=== PATIENT | female | born 1975 | race Two or more races ===

== ENCOUNTER 2020-07-23 14:52 | Outpatient (REF) | payer OTHER, SELFPAY ==
[2020-07-23 16:49] LABS: MANUAL DIFF FLAG NO
[2020-07-23 16:54] LABS: Basophils Absolute Auto 0.1 X10*3/uL (0.0-0.2); Basophils Percent Auto 0.5 % (0-2); Eosinophils Absolute Auto 0.1 X10*3/uL (0.0-0.4); Eosinophils Percent Auto 0.5 % (0-4); Hematocrit 40.9 % (37-47); Hemoglobin 13.7 g/dl (12.0-16.0); Imm Gran Abs Auto 0.04 X10*3/uL (0.00-0.03); Imm Gran Pct Auto 0.4 % (0.0-0.4); Lymphocytes Absolute Auto 2.3 X10*3/uL (1.2-4.9); Lymphocytes Percent Auto 23.6 % (20-40); Mean Corpuscular HGB Conc 33.5 g/dl (31.0-35.0); Mean Corpuscular Hemoglobin 29.7 pg (27.0-33.0); Mean Corpuscular Volume 88.7 fL (80-98); Mean Platelet Volume 9.9 fL (9.4-12.3); Monocytes Absolute Auto 0.6 X10*3/uL (0.1-1.2); Monocytes Percent Auto 5.8 % (2-11); Neutrophils Absolute Auto 6.7 X10*3/uL (2.0-8.3); Neutrophils Percent Auto 69.2 % (45-73); Platelet Count 482 X10*3/uL (160-400); Red Blood Count 4.61 X10*6/uL (4.20-5.50); Red Cell Distribution Width 11.9 % (11.0-16.0); White Blood Count 9.7 X10*3/uL (4.8-10.8)
[2020-07-23 17:21] LABS: D Dimer < 200 NG/ML
[2020-07-23 17:35] LABS: Anion Gap 13 (12-20); Blood Urea Nitrogen 8 mg/dL (9-16); Calcium 8.9 mg/dL (8.4-10.2); Carbon Dioxide 27 mmol/L (22-29); Chloride 104 mmol/L (96-108); Estimated Glomerular Filt Rate > 60; Glucose Random 96 mg/dL (60-115); Sodium 140 mmol/L (135-145)
[2020-07-23 17:53] LABS: Erythrocyte Sedimentation Rate 28 MM/HR (0-20)
[2020-07-24 08:15] LABS: SARS COV2 IgG Negative (Negative)
[2020-07-24 21:23] LABS: Anti Nuclear Antibody Screen POSITIVE (NEGATIVE); Anti Nuclear Antibody Titer 1:40 titer
== END 2020-07-23 14:53 | disposition home or self-care (01) ==
LOC: HO.LAB 14:52
PROVIDERS: Visit Provider Hospitalist
DX: R07.9 Chest pain, unspecified (principal); R06.02 Shortness of breath; J45.909 Unspecified asthma, uncomplicated; Z20.828 Contact with and (suspected) exposure to other viral communicable diseases
CPT/HCPCS: 36415; 80048; 82785; 85025; 85379; 85652; 86003; 86038; 86039; 86769; 99202

== ENCOUNTER 2020-07-25 08:48 | Outpatient (REF) | payer OTHER, SELFPAY ==
--- NOTE | 2020-07-25 10:33 | XR_ITS ---
EXAMINATION: XR CHEST CLINICAL INFORMATION: Asthma COMPARISON: None TECHNIQUE: 2 views of the chest were obtained. FINDINGS: No significant abnormality is noted involving the heart, lungs, mediastinum, bony thorax or soft tissues. XR/XR chest 2V IMPRESSION: Unremarkable examination.
--- NOTE | 2020-07-25 16:08 | PFT_ITS ---
FLOWS: FEV1 of 85% of predicted at 2.67 L. FVC 81% of predicted at 3.08 L. FEV1 to FVC ratio of 0.87. No bronchodilator response. LUNG VOLUMES: Total lung capacity 79% of predicted at 4.26 L. Residual volume 59% of predicted at 1.04 L. Slow vital capacity 89% of predicted at 3.22 L. Expiratory reserve volume 86% of predicted at 1.07 L. Diffusion capacity is normal. IMPRESSION: No obstructive or restrictive ventilatory defect. No bronchodilator response. Essentially normal pulmonary function test. Good Chavez MD AP/MODL / [id number]
== END 2020-07-25 08:49 | disposition home or self-care (01) ==
LOC: HO.RESP 08:48
PROVIDERS: Visit Provider Hospitalist
DX: J45.909 Unspecified asthma, uncomplicated (principal); R06.02 Shortness of breath
CPT/HCPCS: 71046; 94060; 94727; 94729

== ENCOUNTER → 2020-08-13 14:51 | Outpatient (BNVA) | payer OTHER, SELFPAY | PROVIDERS: Visit Provider Hospitalist | DX: J45.909 Unspecified asthma, uncomplicated (principal); R06.00 Dyspnea, unspecified; R07.9 Chest pain, unspecified; R76.8 Other specified abnormal immunological findings in serum; J98.4 Other disorders of lung | CPT/HCPCS: 99212 ==

== ENCOUNTER 2020-09-04 11:52 | Outpatient (REF) | payer OTHER, SELFPAY ==
--- NOTE | 2020-09-04 12:15 | CT_ITS ---
EXAMINATION: CT CHEST WITHOUT CONTRAST CLINICAL INFORMATION: Abnormal immunological findings. COMPARISON: Chest x-ray 07/25/2020 TECHNIQUE: Multidetector volumetric CT imaging of the chest was done. Axial MIP volume rendering provided. Sagittal and coronal reformatted images were obtained. This CT examination was performed using dose optimization techniques as appropriate, variously including the following: *Automated exposure control *Adjustment of mA and/or kV according to patient size (this includes techniques or standardized protocols for targeted exams where dose is matched to indication/reason for exam; i.e. extremities or head) *Use of iterative reconstruction technique DLP: 155 mGy-cm FINDINGS: ROUTE SALES REPRESENTATIVE: Hypoexpanded lungs. LUNGS: The lungs are well-expanded and clear of acute pneumonic process. There is no pulmonary nodule, groundglass density or consolidation. No abnormal interstitial thickening seen either. MEDIASTINUM: The central trachea and bronchi are widely patent. The thyroid lobes are symmetrical and normal. The heart size and great vessels are normal caliber. No abnormal size mediastinal lymph nodes seen. There is no pericardial effusion. PLEURA: There is no pleural effusion. No pleural mass or thickening. AXILLA: No lymphadenopathy. UPPER ABDOMEN: Visualized liver, spleen, pancreas and bilateral adrenal glands are unremarkable. OSSEOUS STRUCTURES: There is mild ventral spondylosis at T2-T3 disc level. No fracture or lytic process seen. CT/CT chest wo con IMPRESSION: Essentially unremarkable CT chest exam.
[2020-09-05 11:17] LABS: Immunoglobulin E 59 kU/L (<OR=114)
[2020-09-05 12:02] LABS: Complement C3 72 mg/dL (83-193)
[2020-09-05 12:26] LABS: Anti DNA DS Antibody 2 IU/mL; Antibody to SS-A Antigen <1.0 NEG AI (<1.0 NEG); Antibody to SS-B Antigen <1.0 NEG AI (<1.0 NEG)
[2020-09-06 07:47] LABS: Cyclic Citrullinated Peptide <16 UNITS
== END 2020-09-04 11:53 | disposition home or self-care (01) ==
LOC: HO.CT 11:52
PROVIDERS: Visit Provider Hospitalist
DX: R07.9 Chest pain, unspecified (principal); R06.00 Dyspnea, unspecified; R76.8 Other specified abnormal immunological findings in serum; J45.909 Unspecified asthma, uncomplicated
CPT/HCPCS: 36415; 71250; 82785; 86160; 86200; 86225; 86235

== ENCOUNTER → 2020-09-10 09:09 | Outpatient (BNVA) | payer OTHER, SELFPAY | PROVIDERS: Visit Provider Hospitalist | DX: J98.4 Other disorders of lung (principal); R76.8 Other specified abnormal immunological findings in serum; R07.1 Chest pain on breathing; G47.33 Obstructive sleep apnea (adult) (pediatric); Z99.89 Dependence on other enabling machines and devices | CPT/HCPCS: 99212 ==

== ENCOUNTER 2020-10-25 11:35 | Outpatient (REF) | payer OTHER, SELFPAY | END 2020-10-25 11:36 | disposition home or self-care (01) | LOC: HO.LAB 11:35 | PROVIDERS: Visit Provider Internal Medicine | DX: Z20.822 Contact with and (suspected) exposure to COVID-19 (principal) | CPT/HCPCS: 36415; C9803; U0003; U0005 ==

== ENCOUNTER → 2020-10-31 14:33 | Outpatient (BNVA) | payer OTHER, SELFPAY | PROVIDERS: Visit Provider Hospitalist | DX: Z01.811 Encounter for preprocedural respiratory examination (principal); G47.33 Obstructive sleep apnea (adult) (pediatric); J98.4 Other disorders of lung; R76.8 Other specified abnormal immunological findings in serum; R06.00 Dyspnea, unspecified; J45.20 Mild intermittent asthma, uncomplicated; Z99.89 Dependence on other enabling machines and devices | CPT/HCPCS: 99212 ==

== ENCOUNTER 2020-12-13 09:17 | Outpatient (REF) | payer OTHER, SELFPAY ==
[2020-12-13 11:11] LABS: MANUAL DIFF FLAG NO
[2020-12-13 11:59] LABS: Basophils Absolute Auto 0.1 X10*3/uL (0.0-0.2); Basophils Percent Auto 0.5 % (0-2); Eosinophils Absolute Auto 0.1 X10*3/uL (0.0-0.4); Eosinophils Percent Auto 0.7 % (0-4); Hematocrit 36.6 % (37-47); Hemoglobin 12.2 g/dl (12.0-16.0); Imm Gran Abs Auto 0.06 X10*3/uL (0.00-0.03); Imm Gran Pct Auto 0.6 % (0.0-0.4); Lymphocytes Absolute Auto 3.5 X10*3/uL (1.2-4.9); Lymphocytes Percent Auto 36.5 % (20-40); Mean Corpuscular HGB Conc 33.3 g/dl (31.0-35.0); Mean Corpuscular Hemoglobin 29.3 pg (27.0-33.0); Mean Corpuscular Volume 87.8 fL (80-98); Mean Platelet Volume 10.1 fL (9.4-12.3); Monocytes Absolute Auto 0.6 X10*3/uL (0.1-1.2); Monocytes Percent Auto 6.1 % (2-11); Neutrophils Absolute Auto 5.3 X10*3/uL (2.0-8.3); Neutrophils Percent Auto 55.6 % (45-73); Platelet Count 435 X10*3/uL (160-400); Red Blood Count 4.17 X10*6/uL (4.20-5.50); Red Cell Distribution Width 12.8 % (11.0-16.0); White Blood Count 9.6 X10*3/uL (4.8-10.8)
[2020-12-13 12:13] LABS: Thyroid Stimulating Hormone 1.63 uIU/mL (0.32-4.0)
[2020-12-13 12:23] LABS: Alanine Aminotransferase 13 U/L (0-31); Alkaline Phosphatase 113 U/L (39-117); Anion Gap 13 (12-20); Aspartate Amino Transferase 12 U/L (5-31); Bilirubin Total 0.9 mg/dL (0.0-1.0); Blood Urea Nitrogen 10 mg/dL (9-16); C Reactive Protein 0.43 mg/dL (< or = 0.50); Calcium 8.9 mg/dL (8.4-10.2); Carbon Dioxide 23 mmol/L (22-29); Chloride 108 mmol/L (96-108); Estimated Glomerular Filt Rate > 60; Glucose Random 121 mg/dL (60-115); Rheumatoid Factor < 15.0 IU/mL (<15.0); Sodium 140 mmol/L (135-145); Total Protein 7.1 g/dL (6.5-8.0)
[2020-12-13 12:40] LABS: Erythrocyte Sedimentation Rate 25 MM/HR (0-20)
[2020-12-14 09:37] LABS: Thyroglobulin Antibodies <1 IU/mL (< or = 1); Thyroid Peroxidase Antibodies 1 IU/mL (<9)
[2020-12-14 12:22] LABS: Anti DNA DS Antibody 1 IU/mL; Scleroderma 70 Antibody <1.0 NEG AI (<1.0 NEG); Smith Protein <1.0 NEG AI (<1.0 NEG)
[2020-12-14 14:01] LABS: Anti Nuclear Antibody Screen NEGATIVE (NEGATIVE)
[2020-12-16 10:26] LABS: Complement C3 142 mg/dL (83-193)
[2020-12-17 12:33] LABS: Cyclic Citrullinated Peptide <16 UNITS
== END 2020-12-13 09:18 | disposition home or self-care (01) ==
LOC: HO.LAB 09:17
PROVIDERS: Hospitalist; PCP Nurse Practitioner Family; Visit Provider Student in an Organized Health Care Education/Training Program
DX: R07.1 Chest pain on breathing (principal); R06.00 Dyspnea, unspecified; R76.8 Other specified abnormal immunological findings in serum
CPT/HCPCS: 36415; 80053; 84443; 85025; 85652; 86038; 86039; 86140; 86160; 86200; 86225; 86235; 86376; 86431; 86800; 99202

== ENCOUNTER 2020-12-14 10:57 | Outpatient (REF) | payer OTHER, SELFPAY ==
[2020-12-14 11:14] LABS: Glucose Urine UA NEG (NEG); Leukocyte Esterase Urine NEG (NEG); Nitrite Urine NEG (NEG); Urine Blood NEG (NEG); Urine Ketones NEG (NEG); Urine Protein NEG (NEG-TRACE)
[2020-12-14 11:15] LABS: Appearance Urine CLEAR; Color Urine YELLOW
[2020-12-14 11:28] LABS: RBC Urine 0 /HPF (0); Squamous Epithelial Cell Urine 1+ /LPF; WBC Urine 0 /HPF (0-4)
== END 2020-12-14 10:58 | disposition home or self-care (01) ==
LOC: HO.LNP 10:57
PROVIDERS: Visit Provider Student in an Organized Health Care Education/Training Program
DX: R76.8 Other specified abnormal immunological findings in serum (principal)
CPT/HCPCS: 81001

== ENCOUNTER → 2020-12-27 10:03 | Outpatient (BNVA) | payer OTHER, SELFPAY | PROVIDERS: Visit Provider Student in an Organized Health Care Education/Training Program | DX: R76.8 Other specified abnormal immunological findings in serum (principal) | CPT/HCPCS: 99212 ==

== ENCOUNTER → 2021-01-16 08:53 | Outpatient (BNVA) | payer OTHER, SELFPAY | PROVIDERS: PCP Physician Assistant Medical; Visit Provider Hospitalist | DX: G47.33 Obstructive sleep apnea (adult) (pediatric) (principal); J98.4 Other disorders of lung; J45.20 Mild intermittent asthma, uncomplicated; Z99.89 Dependence on other enabling machines and devices | CPT/HCPCS: 99212 ==

== ENCOUNTER → 2021-05-09 09:08 | Outpatient (BNVA) | payer OTHER, SELFPAY | PROVIDERS: PCP Physician Assistant Medical; Visit Provider Hospitalist | DX: J98.4 Other disorders of lung (principal); J45.20 Mild intermittent asthma, uncomplicated; G47.33 Obstructive sleep apnea (adult) (pediatric); R07.1 Chest pain on breathing; Z99.89 Dependence on other enabling machines and devices | CPT/HCPCS: 99212 ==

== ENCOUNTER → 2021-07-08 14:06 | Outpatient (BNVA) | payer OTHER, SELFPAY | PROVIDERS: PCP Physician Assistant Medical; Visit Provider Hospitalist | DX: J98.4 Other disorders of lung (principal); J45.20 Mild intermittent asthma, uncomplicated; R07.1 Chest pain on breathing; G47.33 Obstructive sleep apnea (adult) (pediatric); Z99.89 Dependence on other enabling machines and devices | CPT/HCPCS: 99212 ==

== ENCOUNTER → 2021-08-25 13:00 | Outpatient (BNVA) | payer OTHER, SELFPAY | PROVIDERS: PCP Physician Assistant Medical; Visit Provider Hospitalist | DX: U07.1 COVID-19 (principal); J98.4 Other disorders of lung; J45.20 Mild intermittent asthma, uncomplicated; R07.1 Chest pain on breathing; G47.33 Obstructive sleep apnea (adult) (pediatric); Z79.899 Other long term (current) drug therapy; Z99.89 Dependence on other enabling machines and devices | CPT/HCPCS: Q3014 ==

== ENCOUNTER → 2021-09-26 13:40 | Outpatient (BNVA) | payer OTHER, SELFPAY | PROVIDERS: PCP Physician Assistant Medical; Visit Provider Psychiatry & Neurology Neurology | DX: G43.709 Chronic migraine without aura, not intractable, without status migrainosus (principal) | CPT/HCPCS: 64615; 99211; J0585 ==

== ENCOUNTER → 2021-10-06 12:31 | Outpatient (BNVA) | payer OTHER, SELFPAY | PROVIDERS: PCP Physician Assistant Medical; Visit Provider Hospitalist | DX: U07.1 COVID-19 (principal); R07.9 Chest pain, unspecified; J45.20 Mild intermittent asthma, uncomplicated; J98.4 Other disorders of lung; G47.33 Obstructive sleep apnea (adult) (pediatric); Z99.89 Dependence on other enabling machines and devices | CPT/HCPCS: 99212 ==

== ENCOUNTER → 2021-12-22 12:45 | Outpatient (BNVA) | payer OTHER, SELFPAY | PROVIDERS: PCP Physician Assistant Medical; Visit Provider Psychiatry & Neurology Neurology | DX: G43.709 Chronic migraine without aura, not intractable, without status migrainosus (principal) | CPT/HCPCS: 64615; 99211; J0585 ==

== ENCOUNTER → 2022-01-12 13:46 | Outpatient (BNVA) | payer OTHER, SELFPAY | PROVIDERS: PCP Physician Assistant Medical; Visit Provider Nurse Practitioner Family | DX: G43.709 Chronic migraine without aura, not intractable, without status migrainosus (principal); G25.81 Restless legs syndrome; G47.33 Obstructive sleep apnea (adult) (pediatric); Z79.899 Other long term (current) drug therapy; Z99.89 Dependence on other enabling machines and devices | CPT/HCPCS: 99212 ==

== ENCOUNTER → 2022-02-12 12:31 | Outpatient (BNVA) | payer OTHER, SELFPAY | PROVIDERS: PCP Physician Assistant Medical; Visit Provider Hospitalist | DX: G47.33 Obstructive sleep apnea (adult) (pediatric) (principal); J98.4 Other disorders of lung; R07.1 Chest pain on breathing; J45.20 Mild intermittent asthma, uncomplicated; Z79.899 Other long term (current) drug therapy; Z99.89 Dependence on other enabling machines and devices | CPT/HCPCS: 99212 ==

== ENCOUNTER 2022-03-23 15:58 | Outpatient (REF) | payer OTHER, SELFPAY ==
[2022-03-23 16:25] LABS: MANUAL DIFF FLAG NO
[2022-03-23 17:14] LABS: Basophils Absolute Auto 0.1 X10*3/uL (0.0-0.2); Basophils Percent Auto 0.7 % (0-2); Eosinophils Absolute Auto 0.1 X10*3/uL (0.0-0.4); Eosinophils Percent Auto 0.6 % (0-4); Hematocrit 42.3 % (37.0-47.0); Hemoglobin 14.1 g/dl (12.0-16.0); Imm Gran Abs Auto 0.03 X10*3/uL (0.00-0.03); Imm Gran Pct Auto 0.3 % (0.0-0.4); Lymphocytes Absolute Auto 2.9 X10*3/uL (1.2-4.9); Lymphocytes Percent Auto 29.4 % (20-40); Mean Corpuscular HGB Conc 33.3 g/dl (31.0-35.0); Mean Corpuscular Hemoglobin 29.2 pg (27.0-33.0); Mean Corpuscular Volume 87.6 fL (80.0-98.0); Mean Platelet Volume 10.1 fL (9.4-12.3); Monocytes Absolute Auto 0.6 X10*3/uL (0.1-1.2); Monocytes Percent Auto 5.6 % (2-11); Neutrophils Absolute Auto 6.2 x10*3/uL (2.0-8.3); Neutrophils Percent Auto 63.4 % (45-73); Platelet Count 468 X10*3/uL (160-400); Red Blood Count 4.83 X10*6/uL (4.20-5.50); Red Cell Distribution Width 12.3 % (11.0-16.0); White Blood Count 9.8 X10*3/uL (4.8-10.8)
[2022-03-23 17:56] LABS: Alanine Aminotransferase 23 U/L (0-31); Albumin Level 4.8 g/dL (3.5-5.0); Alkaline Phosphatase 161 U/L (39-117); Anion Gap 15 (12-20); Aspartate Amino Transferase 24 U/L (5-31); Bilirubin Total 0.3 mg/dL (0.0-1.0); Blood Urea Nitrogen 10 mg/dL (9-16); C Reactive Protein 0.78 mg/dL (< or = 0.50); Calcium 9.3 mg/dL (8.4-10.2); Carbon Dioxide 25 mmol/L (22-29); Chloride 105 mmol/L (96-108); Estimated Glomerular Filt Rate > 60; Glucose Random 103 mg/dL (60-115); Sodium 141 mmol/L (135-145); Total Protein 8.3 g/dL (6.5-8.0)
[2022-03-23 18:06] LABS: Erythrocyte Sedimentation Rate 26 MM/HR (0-20)
[2022-03-24 04:05] LABS: HBS Num1 0.57 mIU/mL (0-7.99); HBc Num1 0.16 S/CO (0.00-0.79); HBsAGNum1 0.23 S/CO (0.00-0.99); Hepatitis B Core Antibody Nonreactive (Nonreactive); Hepatitis B Surface Antigen Negative (Negative); ~HepC Num1 0.37 S/CO (0.00-0.79); ~Hepatitis B Surface Antibody NONREACTIVE (Nonreactive); ~Hepatitis C Antibody Nonreactive (Nonreactive)
[2022-03-25 05:00] LABS: Hepatitis A Antibody IgM 0.13 Index (0-0.79); ~Hepatitis A Antibody IgM Nonreactive (Nonreactive)
[2022-03-25 09:17] LABS: Iron 64 mcg/dL (30-160); Percent Iron Saturation 17 % (15-50); Total Iron Binding Capacity 377 mcg/dL (228-428); Unsaturated Iron Binding 313 ug/dL
[2022-03-25 16:47] LABS: Complement C3 174 mg/dL (83-193)
[2022-03-26 06:12] LABS: DRVVT 1:1 Mix Interpretation Not Indicated; PTT (LAC) Screen 36 sec (<=40)
[2022-03-26 10:42] LABS: Anti Nuclear Antibody Screen NEGATIVE (NEGATIVE)
[2022-03-26 14:27] LABS: Anti DNA DS Antibody 1 IU/mL; Antibody to SS-A Antigen <1.0 NEG AI (<1.0 NEG); Antibody to SS-B Antigen <1.0 NEG AI (<1.0 NEG); SM/Ribonucleoprotein Ab 6.9 POS AI (<1.0 NEG); Scleroderma 70 Antibody <1.0 NEG AI (<1.0 NEG); Smith Protein <1.0 NEG AI (<1.0 NEG)
[2022-03-26 20:13] LABS: Myeloperoxidase Antibody <1.0 AI; Proteinase 3 PR3 Antibodies <1.0 AI
[2022-03-27 15:06] LABS: IgA 263 mg/dL (47-310); IgG 1515 mg/dL (600-1640); IgM 185 mg/dL (50-300)
[2022-03-27 21:32] LABS: Prot Elec - Albumin 4.9 g/dL (3.8-4.8); Prot Elec - Alpha1 0.3 g/dL (0.2-0.3); Prot Elec - Alpha2 0.8 g/dL (0.5-0.9); Prot Elec - Beta 1 0.6 g/dL (0.4-0.6); Prot Elec - Beta 2 0.4 g/dL (0.2-0.5); Prot Elec - Gamma 1.4 g/dL (0.8-1.7); Prot Elec - Total Protein 8.4 g/dL (6.1-8.1)
[2022-03-31 21:12] LABS: Transferrin 301 mg/dL (188-341)
== END 2022-03-23 15:59 | disposition home or self-care (01) ==
LOC: HO.LAB 15:58
PROVIDERS: Hospitalist; Visit Provider Student in an Organized Health Care Education/Training Program
DX: M25.50 Pain in unspecified joint (principal); R21 Rash and other nonspecific skin eruption; R76.8 Other specified abnormal immunological findings in serum; J98.4 Other disorders of lung; R07.1 Chest pain on breathing; D75.839 Thrombocytosis, unspecified; D89.2 Hypergammaglobulinemia, unspecified; Z79.899 Other long term (current) drug therapy
CPT/HCPCS: 36415; 80053; 82784; 83540; 84165; 84466; 85025; 85597; 85613; 85652; 85730; 86021; 86038; 86039; 86140; 86160; 86225; 86235; 86334; 86704; 86706; 86709; 86803; 87340; 99202; 99212

== ENCOUNTER 2022-03-26 16:03 | Outpatient (REF) | payer OTHER, SELFPAY ==
[2022-03-26 16:20] LABS: Appearance Urine Cloudy; Color Urine Dark Yellow; Glucose Urine UA Negative (Negative); Leukocyte Esterase Urine Small (1+) (Negative); Nitrite Urine Negative (Negative); PH 5.5 (5.0-8.0); Specific Gravity - Urine 1.025 (1.005-1.025); Urine Blood Negative (Negative); Urine Ketones Trace mg/dL (Negative); Urine Protein Negative (Neg-Trace)
[2022-03-26 16:30] LABS: Bacteria Urine 2+ (None Seen); Hyaline Casts Urine 0-2 /LPF (0-2); RBC Urine 0-2 /HPF (0-2); Squamous Epithelial Cell Urine >20 /HPF (0-2); WBC Urine 0-5 /HPF (0-5)
[2022-03-26 16:31] LABS: UACC Culture Trigger NO
[2022-03-26 16:33] LABS: Creatinine Urine 188.33 mg/dL; Protein/Creatinine Ratio, Ur 0.06 (<0.2); Total Protein Urine Random 12 mg/dL (<12)
== END 2022-03-26 16:04 | disposition home or self-care (01) ==
LOC: HO.LNP 16:03
PROVIDERS: Visit Provider Student in an Organized Health Care Education/Training Program
DX: R21 Rash and other nonspecific skin eruption (principal); R76.8 Other specified abnormal immunological findings in serum; M25.50 Pain in unspecified joint
CPT/HCPCS: 81001; 84156

== ENCOUNTER → 2022-04-21 14:29 | Outpatient (BNVA) | payer OTHER, SELFPAY | PROVIDERS: Visit Provider Student in an Organized Health Care Education/Training Program | DX: R76.8 Other specified abnormal immunological findings in serum (principal); M35.9 Systemic involvement of connective tissue, unspecified; M79.7 Fibromyalgia; Z79.899 Other long term (current) drug therapy | CPT/HCPCS: 99212 ==

== ENCOUNTER → 2022-05-08 14:26 | Outpatient (BNVA) | payer OTHER, SELFPAY | PROVIDERS: Visit Provider Nurse Practitioner Family | DX: M54.50 Low back pain, unspecified (principal); M79.605 Pain in left leg; R20.1 Hypoesthesia of skin; G43.709 Chronic migraine without aura, not intractable, without status migrainosus; Z79.899 Other long term (current) drug therapy | CPT/HCPCS: 99212 ==

== ENCOUNTER → 2022-05-22 14:55 | Outpatient (BNVA) | payer OTHER, SELFPAY | PROVIDERS: PCP Physician Assistant Medical; Visit Provider Hospitalist | DX: J45.20 Mild intermittent asthma, uncomplicated (principal); J98.4 Other disorders of lung; R07.1 Chest pain on breathing; G47.33 Obstructive sleep apnea (adult) (pediatric); Z99.89 Dependence on other enabling machines and devices | CPT/HCPCS: 99212 ==

== ENCOUNTER → 2022-06-18 08:04 | Outpatient (BNVA) | payer OTHER, SELFPAY | PROVIDERS: PCP Physician Assistant Medical; Visit Provider Psychiatry & Neurology Neurology | DX: G43.119 Migraine with aura, intractable, without status migrainosus (principal); G43.709 Chronic migraine without aura, not intractable, without status migrainosus | CPT/HCPCS: 64615; 99211; J0585 ==

== ENCOUNTER 2022-07-20 13:26 | Outpatient (REF) | payer OTHER, SELFPAY ==
[2022-07-20 13:45] LABS: MANUAL DIFF FLAG NO
[2022-07-20 14:19] LABS: Basophils Absolute Auto 0.1 X10*3/uL (0.0-0.2); Basophils Percent Auto 0.6 % (0-2); Eosinophils Absolute Auto 0.2 X10*3/uL (0.0-0.4); Eosinophils Percent Auto 1.8 % (0-4); Hemoglobin 12.5 g/dl (12.0-16.0); Imm Gran Abs Auto 0.06 X10*3/uL (0.00-0.03); Imm Gran Pct Auto 0.7 % (0.0-0.4); Lymphocytes Absolute Auto 2.5 X10*3/uL (1.2-4.9); Lymphocytes Percent Auto 27.3 % (20-40); Mean Corpuscular HGB Conc 32.9 g/dl (31.0-35.0); Mean Corpuscular Hemoglobin 28.9 pg (27.0-33.0); Mean Corpuscular Volume 87.8 fL (80.0-98.0); Mean Platelet Volume 10.3 fL (9.4-12.3); Monocytes Absolute Auto 0.6 X10*3/uL (0.1-1.2); Monocytes Percent Auto 6.7 % (2-11); Neutrophils Absolute Auto 5.7 x10*3/uL (2.0-8.3); Neutrophils Percent Auto 62.9 % (45-73); Platelet Count 418 X10*3/uL (160-400); Red Blood Count 4.33 X10*6/uL (4.20-5.50); Red Cell Distribution Width 12.3 % (11.0-16.0)
[2022-07-20 15:13] LABS: Alanine Aminotransferase 10 U/L (0-31); Albumin Level 4.2 g/dL (3.5-5.0); Alkaline Phosphatase 113 U/L (39-117); Anion Gap 12 (12-20); Aspartate Amino Transferase 13 U/L (5-31); Bilirubin Total 0.5 mg/dL (0.0-1.0); Blood Urea Nitrogen 11 mg/dL (9-16); C Reactive Protein 0.69 mg/dL (< or = 0.50); Calcium 8.9 mg/dL (8.4-10.2); Carbon Dioxide 24 mmol/L (22-29); Chloride 106 mmol/L (96-108); Estimated Glomerular Filt Rate > 60; Ferritin 78 ng/mL (10-250); Glucose Random 114 mg/dL (60-115); Sodium 138 mmol/L (135-145)
[2022-07-21 14:48] LABS: Complement C3 146 mg/dL (83-193)
[2022-07-22 16:38] LABS: Anti-Centromere B Antibodies <1.0 NEG AI (<1.0 NEG)
[2022-07-24 10:04] LABS: Anti DNA DS Antibody 1 IU/mL; Myeloperoxidase Antibody <1.0 AI; Proteinase 3 PR3 Antibodies <1.0 AI
== END 2022-07-20 13:27 | disposition home or self-care (01) ==
LOC: HO.LAB 13:26
PROVIDERS: Visit Provider Student in an Organized Health Care Education/Training Program
DX: R76.8 Other specified abnormal immunological findings in serum (principal); D75.839 Thrombocytosis, unspecified; M25.50 Pain in unspecified joint; R21 Rash and other nonspecific skin eruption; D89.2 Hypergammaglobulinemia, unspecified
CPT/HCPCS: 36415; 80053; 82728; 85025; 86021; 86140; 86160; 86225; 86235

== ENCOUNTER 2022-07-22 09:16 | Outpatient (REF) | payer OTHER, SELFPAY ==
[2022-07-22 09:30] LABS: Appearance Urine Clear; Color Urine Yellow; Glucose Urine UA Negative (Negative); Leukocyte Esterase Urine Trace (Negative); Nitrite Urine Negative (Negative); PH 5.5 (5.0-9.0); Specific Gravity - Urine 1.015 (1.005-1.025); UMIC TRIGGER UA YES; Urine Blood Negative (Negative); Urine Ketones Negative (Negative); Urine Protein Negative (Neg-Trace)
[2022-07-22 09:35] LABS: Bacteria Urine Trace (None Seen); Hyaline Casts Urine 0-2 /LPF (0-2); RBC Urine 0-2 /HPF (0-2); WBC Urine 0-5 /HPF (0-5)
[2022-07-22 09:54] LABS: Creatinine Urine 135.84 mg/dL; Total Protein Urine Random < 7 mg/dL (<12)
== END 2022-07-22 09:17 | disposition home or self-care (01) ==
LOC: HO.LNP 09:16
PROVIDERS: Visit Provider Student in an Organized Health Care Education/Training Program
DX: R76.8 Other specified abnormal immunological findings in serum (principal); M35.9 Systemic involvement of connective tissue, unspecified; M79.7 Fibromyalgia; Z79.899 Other long term (current) drug therapy
CPT/HCPCS: 81001; 84156; 99212

== ENCOUNTER → 2022-09-21 07:55 | Outpatient (BNVA) | payer OTHER, SELFPAY | PROVIDERS: PCP Physician Assistant Medical; Visit Provider Psychiatry & Neurology Neurology | DX: G43.709 Chronic migraine without aura, not intractable, without status migrainosus (principal) | CPT/HCPCS: 64615; 99211; J0585 ==

== ENCOUNTER → 2022-09-29 14:40 | Outpatient (BNVA) | payer OTHER, SELFPAY | PROVIDERS: PCP Physician Assistant Medical; Visit Provider Nurse Practitioner Family | DX: G43.119 Migraine with aura, intractable, without status migrainosus (principal); G43.709 Chronic migraine without aura, not intractable, without status migrainosus; G25.81 Restless legs syndrome; G47.33 Obstructive sleep apnea (adult) (pediatric); Z99.89 Dependence on other enabling machines and devices | CPT/HCPCS: 99212 ==

== ENCOUNTER → 2022-11-20 13:13 | Outpatient (BNVA) | payer OTHER, SELFPAY | PROVIDERS: PCP Physician Assistant Medical; Visit Provider Hospitalist | DX: J98.4 Other disorders of lung (principal); J45.20 Mild intermittent asthma, uncomplicated; R07.1 Chest pain on breathing; G47.33 Obstructive sleep apnea (adult) (pediatric); Z99.89 Dependence on other enabling machines and devices | CPT/HCPCS: 99212 ==

== ENCOUNTER → 2022-12-22 15:53 | Outpatient (BNVA) | payer OTHER, SELFPAY | PROVIDERS: PCP Physician Assistant Medical; Visit Provider Psychiatry & Neurology Neurology | DX: G43.709 Chronic migraine without aura, not intractable, without status migrainosus (principal); G43.119 Migraine with aura, intractable, without status migrainosus | CPT/HCPCS: 64615; 99211; J0585 ==

== ENCOUNTER → 2023-01-25 14:15 | Outpatient (BNVA) | payer OTHER, SELFPAY | PROVIDERS: PCP Physician Assistant Medical; Visit Provider Nurse Practitioner Family | DX: G43.709 Chronic migraine without aura, not intractable, without status migrainosus (principal); M62.838 Other muscle spasm; R51.9 Headache, unspecified | CPT/HCPCS: 99212 ==

== ENCOUNTER 2023-03-12 12:35 | Outpatient (AMB) | payer OTHER, SELFPAY ==
[2023-03-12 12:57] VITALS: BP 118/70; PULSE 78; O2SAT 100; BMI 27.6
--- NOTE | 2023-03-12 12:57 | MHC.OFFVIS ---
Intake Vital Signs 03/12/23 12:57 Height 5 ft 6 in Weight 171 lb 1.259 oz BMI 27.6 BP 118/70 Blood Pressure Location Lt brachial Position Sitting Pulse 78 Pulse Source Pulse Oximeter Pulse Oximetry (%) 100 Oxygen Delivery Method Room Air Intake Visit Reasons: asthma Inspector Returned Materials Required: No Allergies gabapentin Allergy (Severe, Verified 03/12/23 12:59) Nausea and Vomiting shrimp Allergy (Severe, Verified 03/12/23 12:59) Nausea and Vomiting HPI HPI Comments History of Present Illness Details The patient is a 47-year-old woman with a known history of obstructive sleep apnea who apparently was in the usual state health until September of 2019. During that time she became briefly ill with respiratory illness. The patient is very symptomatic with significant coughing shortness of breath and also was noted to be wheezing at that time. Since then the patient has had ongoing symptoms which vary from shortness breath and cough. Her cough tends to be nonproductive in nature. At times he had been croupy. Due to the significant coughing she has not been able to tolerate her CPAP therapy. Prior to this illness she was using her CPAP without any difficulties. Subsequently after that she was tested for COVID and her swab was negative. Although she is pretty sure that she had COVID when she was significantly ill back in September. Now she complains of chest discomfort the sometimes radiates to her back along with shortness of breath and she has been noted to be significantly tachycardic. She had been evaluated at [facility] in her blood work has been relatively unremarkable. She had a chest x-ray back in February which was read as no acute disease and also personally reviewed and agreed. 05/11/2021 the patient is here for a pulmonary follow-up visit. Overall she is doing about the same. Still complaining of the pleuritic chest discomfort. She was responding well to the Plaquenil. But, had to stop it due to visual changes. Initially her LAVONNE has been positive. She did have a follow-up with Rheumatology but her workup was negative. She was diagnosed with fibromyalgia. Now, she developed a skin rash. She did follow-up with Dermatology. I do encourage her to get a biopsy of the rash. In the meantime we will assess her for other connective tissue or inflammatory conditions that she has not been checked for as of yet such as sarcoid and vasculitis. 02/25/2022 the patient is here for a pulmonary follow-up visit. She still complaining the pleuritic chest discomfort. She did have relief from the Plaquenil. However, she started developing visual changes and had to be stopped. She was taking it twice a day of the time. Now, She no longer has any visual changes. Her pleuritic discomfort is moderate severity. Makes it hard for her to be able to breathe. We did review her CT scan of the chest that she had previously without any evidence of any pleural thickening or pleural effusions. Although she may indeed have the beginnings of a connective tissue disease resulting in some pleuritis. The patient is agreeable to trying some ibuprofen and also a lower dose Plaquenil with the hope that she can not tolerated without any visual changes. If she does develop the visual changes use stop it immediately. She continues use her CPAP. The CPAP therapy continues to be affecting beneficial. She does use it for more than 4 hours a night. She also continues with respiratory medicine. She has not required any prednisone would like to hold off on prednisone due to her diabetes. The patient may be a good candidate for Daliresp specially if she develops any worsening bronchitis. 05/22/2022 the patient is here for a pulmonary follow-up visit. She continues to have off and on substernal pleuritic chest pains. He has been follow-up with the by Rheumatology. 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 She will continue to monitor closely. Wound time he was kept on the Plaquenil. Patient also has been using her CPAP. The CPAP therapy continues to be affecting beneficial. He does use it for more than 4 hours a night. Unfortunate current mask makes it to uncomfortable for her weakness is too tight around her nose. I did have a large F20 mask that is a little bit her but does work. She can try this to see if this is a better fit for her. If this does work for her better than she considering medium F20 mask. I will submit this to her [employer] at this time. She continues with respiratory therapy with good effect. Denies any for prednisone or rescue therapy at this time. 11/20/2022 the patient is here for pulmonary follow-up visit. The patient overall feels better. The substernal discomfort is improved. The inhaler tends to help with that. Although she still complaining of back pain. In the back issue otherwise in the thoracic area slightly not related to the underlying pulmonary issue. She also continues on the Plaquenil. She did go to her eye doctor and they did mention something abnormal although her vision is okay. I did encourage to continue the Plaquenil but to consider dropping it to just 1 daily and then follow up with her cosmetician apprentice with a copy of the note from the eye doctor in order for them to be able to make a better plan altogether. 03/12/2023 the patient is here for a pulmonary follow-up visit. She continues to have pleuritic chest pain. Hnma-mb-vjkmyscw severity. However, she is concerned about the Plaquenil. She does have some visual changes. We had decreased her Plaquenil from twice a day to once a day to minimize symptoms. However, she continues to have them. Therefore she is going to stop it altogether. We did review her chest imaging studies. She did have seen changes to her thoracic spine. Therefore request additional chest x-rays to make sure that the pain is not coming from there. Otherwise she continues on her respiratory medications with good effect. Initial prednisone at this time. The patient will follow up with Rheumatology in the coming months. No issues with her CPAP at this time. [facility] Medical History LAVONNE positive Bronchitis, asthmatic Carpal tunnel syndrome on both sides Cataract Chest pain Chronic migraine without aura Chronic restrictive lung disease COVID-19 Dyspnea Hypergammaglobulinemia Long-term use of Plaquenil JEWEL on CPAP Pre-op chest exam Thrombocytosis Surgical History H/O elbow surgery H/O: hysterectomy History of carpal tunnel release of both wrists Hx of cataract extraction Hx of section Hx of cholecystectomy Hx of tubal ligation Family History Mother Diabetes HTN (hypertension) CVD (cardiovascular disease) Ovarian cancer Father HTN (hypertension) CVD (cardiovascular disease) Maternal Grandfather Stomach cancer Maternal Uncle Lung cancer Mother Rheumatoid arthritis Social History Household Members: Children Alcohol intake: never Patient Tobacco Use Status: Never used Tobacco Current occupational status: disabled Female Reproductive History Menstrual Age of Menarche: 13 Review of Systems Const Denies headache(s) and Denies night sweats Eyes Reports change in vision ENT Denies change in voice, Denies headache(s), Denies lip swelling, Denies mouth pain, Reports nasal congestion, Reports nasal discharge, Reports neck pain and Denies tongue swelling Card Reports chest pain and Denies dyspnea Resp Denies change in phlegm color, Denies chest congestion, Reports cough, Denies hemoptysis and Denies dyspnea GI Reports dyspepsia and Reports heartburn Musc Reports back pain, Reports myalgias, Reports arthralgias and Reports neck pain Neuro Denies Neuro-related abnormal movements and Denies headache(s) Psych Denies no additional complaints Arthur/Lymph Denies easy bleeding and Denies lymphadenopathy Aller/Immun Denies lip swelling and Denies tongue swelling Physical Exam Vital Signs: Last Vital Signs Pulse 78 03/12/23 12:57 BP 118/70 03/12/23 12:57 Pulse Ox 100 03/12/23 12:57 Oxygen Delivery Method Room Air 03/12/23 12:57 BMI result Body Mass Index 27.6 Const General: cooperative and no acute distress Nutritional Appearance: well nourished Orientation/consciousness: patient oriented x3 HEENT Head: Yes normocephalic Neck Neck: Yes normal visual inspection, Yes full ROM and Yes no lymphadenopathy Chest Chest palpation & inspection: normal inspection of the chest Resp Effort & Inspection: normal respiratory effort and able to speak in complete sentences Auscultation: diminished lung sounds Cardio Rate: regular rate Rhythm: regular rhythm Heart sounds: S1 normal heart sound present and S2 normal heart sound present GI Palpation (GI): Soft to palpation Auscultation: normal bowel sounds Skin General skin exam: no rashes or lesions noted Neuro Other: Mild posterior cervical tightness. General: patient oriented x3, gait normal and CN's II-XI intact bilaterally Cognition (Neuro): normal cognition Motor exam (neuro): 5/5 motor strength present throughout Psych Appearance: grossly normal Mental Status: mental status grossly normal Speech and movement: Normal speech and movement present Affect: normal affect Attitude: cooperative Thought process: Normal thought process present Thought content: Normal thought content present Insight: Good insight present (Psych) Judgement: Good judgement present (Psych) Assessment & Plan Assessment & Plan (1) Chronic restrictive lung disease: Code(s): J98.4 - Other disorders of lung (2) Chest pain: Code(s): R07.9 - Chest pain, unspecified Qualifiers: Chest pain type: chest pain on breathing Qualified Code(s): R07.1 - Chest pain on breathing (3) JEWEL on CPAP: Code(s): G47.33 - Obstructive sleep apnea (adult) (pediatric); Z99.89 - Dependence on other enabling machines and devices (4) Bronchitis, asthmatic: Code(s): J45.909 - Unspecified asthma, uncomplicated Qualifiers: Asthma complication type: uncomplicated Asthma persistence: intermittent Asthma severity: mild Qualified Code(s): J45.20 - Mild intermittent asthma, uncomplicated (5) Low back pain radiating to left lower extremity: Code(s): M54.50 - Low back pain, unspecified; M79.605 - Pain in left leg Plan continue Trelegy Continue short-acting beta agonists continue CPAP therapy, trial F20 medium mask stop plaquenil daily due to visual changes follow-up in 6 months Orders: Orders XR lumbar spine 2-3V 03/12/23 M54.50 - Low back pain, unspecified, M79.605 - Pain in left leg XR thoracic spine 2V 03/12/23 M54.50 - Low back pain, unspecified, M79.605 - Pain in left leg Medications: Refilled albuterol sulfate 90 mcg/actuation 2 puffs inhalation Q4H 90 days PRN 3 ea 3RF shortness of breath or wheezing Discontinued fluticasone propionate 110 mcg/actuation (Flovent HFA) Discontinued Reason: Doctor's Order 2 puffs inhalation BID 30 days 12 grams 11RF montelukast Discontinued Reason: Doctor's Order 10 mg PO DAILY 90 tabs 3RF Coding Level of Care Code Est Pt Level 4 (50228) Diagnoses Chronic restrictive lung disease J98.4 Chest pain R07.1 Chest pain type: chest pain on breathing JEWEL on CPAP G47.33; Z99.89 Bronchitis, asthmatic J45.20 Asthma complication type: uncomplicated Asthma persistence: intermittent Asthma severity: mild Low back pain radiating to left lower extremity M54.50; M79.605 Time Spent (min) 19
== END 2023-03-12 13:27 | disposition home or self-care (01) ==
PROVIDERS: PCP Internal Medicine; Visit Provider Hospitalist
DX: J98.4 Other disorders of lung (principal); R07.1 Chest pain on breathing; G47.33 Obstructive sleep apnea (adult) (pediatric); Z99.89 Dependence on other enabling machines and devices; J45.20 Mild intermittent asthma, uncomplicated; M54.50 Low back pain, unspecified; M79.605 Pain in left leg
CPT/HCPCS: 99214

== ENCOUNTER → 2023-03-12 12:35 | Outpatient (BNVA) | payer OTHER, SELFPAY | PROVIDERS: Visit Provider Hospitalist | DX: J98.4 Other disorders of lung (principal); R07.1 Chest pain on breathing; G47.33 Obstructive sleep apnea (adult) (pediatric); J45.20 Mild intermittent asthma, uncomplicated; Z99.89 Dependence on other enabling machines and devices | CPT/HCPCS: 99212 ==

== ENCOUNTER 2023-04-02 09:06 | Outpatient (AMB) | payer OTHER, SELFPAY ==
--- NOTE | 2023-04-02 09:12 | A.OFFVIS_ITS ---
Intake Vital Signs 04/02/23 09:14 Height 5 ft 6 in Weight 171 lb 1.259 oz BMI 27.6 BP 102/82 Blood Pressure Location Rt brachial Position Sitting Pulse 72 Pulse Source Pulse Oximeter Temp 97.6 F Temp Source Skin Pulse Oximetry (%) 99 Oxygen Delivery Method Room Air Intake Visit Reasons: UCTD Intake Note: Here for UCTD. Mailing Jogger Required: Yes Mailing Jogger Language: Commercial Food Instructor Name: Yue [email or web address] Information Interpreted: clinical only Accompanied by: Self / Same As Patient Allergies gabapentin Allergy (Severe, Verified 03/12/23 12:59) Nausea and Vomiting shrimp Allergy (Severe, Verified 03/12/23 12:59) Nausea and Vomiting Medication List - Last Reconciled 04/02/23 by Dale Tompkins MD acetaminophen 500 mg PO Q6H PRN albuterol sulfate 90 mcg/actuation 2 puffs inhalation Q4H PRN 90 days baclofen 1 tab bid and 2 tabs qhs orally bedtime; 30 days ezymbpkxylv-ngiqotgnm-lrukvzbr 200-62.5-25 mcg (Trelegy Ellipta) 1 inh inhalation DAILY 30 days hydrocortisone 0.5% appl topical ibuprofen 600 mg PO Q6H PRN 14 days loratadine 10 mg PO DAILY 30 days magnesium oxide 400 mg PO DAILY 30 days metoprolol tartrate 25 mg PO BID naproxen 750 mg PO DAILY PRN omeprazole 40 mg PO BID onabotulinumtoxinA (Botox) 200 units IM ONCE 12 weeks pantoprazole 40 mg PO BID pregabalin (Lyrica) 300 mg PO BID 30 days propylene glycol-glycerin 1-0.3 % (Artificial Tears (glycerin-peg)) 1 drp ophthalmic (eye) BID ubrogepant 100 mg orally 1 tab at onset of migraine, may repeat in 2 hrs (max 200mg/day) PRN; 32 days umeclidinium 62.5 mcg/actuation (Incruse Ellipta) 1 inh inhalation DAILY 30 days verapamil ER 240 mg PO DAILY 30 days HPI HPI Comments History of Present Illness Details 47-year-old female with UCTD presents for follow-up. Over the last few months patient reduce the Plaquenil dose to 1 tab daily due to eye dryness then it was discontinued altogether by Dr. Carranza due to eye discomfort. Patient continues to have diffuse pain especially in her back, her shoulders, intermittent pain in her hands. She gets skin rashes when exposed to sun. She has lost some weight over the last 8 months by exercising. Patient states that she is able to exercise but she is limited by muscle pain. Initial history: 46 y/o f here for evaluation of +ve LAVONNE she had a +ve LAVONNE 1:40 speckled, subserologies were -ve & when LAVONNE was repeated it was negative last year. Patient continues to have polyarthralgias mostly affecting her hands, the pain is usually starts in the afternoon and improves with activity. She is also complaining of a rash on her face. Complains of dry eyes and dry mouth. Uses artificial tears with some relief, she drinks plenty of water but continues to have a dry mouth. She continues to have the same chest pain and the side of her chest going backwards towards her spine. She mentions that she took Plaquenil 200 mg Twice daily for about 3 months which helped her MSK complaints, but then developed double vision 1 day and then she stopped it. She had a normal CT chest. She also mentions having an echo which I cannot review. She restarted it about 1 month ago by her database developer. She denies blood or frothy urine. No fever or unintentional weight loss PFSH Medical History LAVONNE positive Bronchitis, asthmatic Carpal tunnel syndrome on both sides Cataract Chest pain Chronic migraine without aura Chronic restrictive lung disease COVID-19 Dyspnea Hypergammaglobulinemia Long-term use of Plaquenil JEWEL on CPAP Pre-op chest exam Thrombocytosis Surgical History H/O elbow surgery H/O: hysterectomy History of carpal tunnel release of both wrists Hx of cataract extraction Hx of section Hx of cholecystectomy Hx of tubal ligation Family History Mother Diabetes HTN (hypertension) CVD (cardiovascular disease) Ovarian cancer Father HTN (hypertension) CVD (cardiovascular disease) Maternal Grandfather Stomach cancer Maternal Uncle Lung cancer Mother Rheumatoid arthritis Social History Household Members: Children Alcohol intake: never Patient Tobacco Use Status: Never used Tobacco Current occupational status: disabled Female Reproductive History Menstrual Age of Menarche: 13 Review of Systems [facility] [place] Reports arthralgias Skin/Breast Reports erythema and Reports rash Physical Exam Vital Signs: Last Vital Signs Temp 97.6 F 04/02/23 09:14 Pulse 72 04/02/23 09:14 BP 102/82 04/02/23 09:14 Pulse Ox 99 04/02/23 09:14 Oxygen Delivery Method Room Air 04/02/23 09:14 BMI result Body Mass Index 27.6 Const General: cooperative Nutritional Appearance: obese Orientation/consciousness: patient oriented x3 Limitations: no limitations HEENT Other: Moist oral mucosa, no oral ulcers Resp Effort & Inspection: normal respiratory effort and able to speak in complete sentences Auscultation: clear to auscultation bilaterally Cardio Rate: regular rate Rhythm: regular rhythm GI Inspection: No distended and Yes obesity Auscultation: normal bowel sounds Skin Other: Hyperpigmented spots on cheeks Neuro General: patient oriented x3 Extrem Other: Diffuse fibromyalgia tender points Normal nail fold capillaroscopy General: No no pedal edema Assessment & Plan Assessment & Plan (1) Systemic involvement of connective tissue, unspecified: Code(s): M35.9 - Systemic involvement of connective tissue, unspecified Plan: 47-year-old female with UCTD (e LAVONNE 1-40 speckled,? MANAGER CORPORATE persistently elevated in high titres) returns for follow-up. She does not have symptoms suggestive of SLE, MCTD, Sjogren's or any other well-defined autoimmune connective tissue disease. Patient discontinued the hydroxychloroquine due to eye dryness without any change in her overall symptoms otherwise. I do not see any indication to start patient on DMARDs at this point. Re-evaluate in 6 months (2) Long-term use of Plaquenil: Code(s): Z79.899 - Other usp (current) drug therapy Plan: As mentioned above hydroxychloroquine was discontinued due to eye dryness (3) Rash: Code(s): R21 - Rash and other nonspecific skin eruption Plan: Patient states that she gets intermittent rashes on her arms in the sun. I asked patient to take pictures of her rashes to show me when she comes back to clinic. She asked about cortisone cream I informed patient that a steroid cream can be helpful with very little side effects, advised patient not to use it on her face (4) Thrombocytosis: Code(s): D75.839 - Thrombocytosis, unspecified Plan: Her platelets were elevated last year. She states that she had labs recently done at an outside facility. Results not available to me. I advised patient to follow-up with her PCP and consider evaluation by Hematology Plan I spent 32 minutes reviewing patient's chart, evaluating patient counseling patient and documenting in the chart Coding Level of Care Code Est Pt Level 4 (06409) Diagnoses Systemic involvement of connective tissue, unspecified M35.9 Long-term use of Plaquenil Z79.899 Rash R21 Thrombocytosis D75.839
[2023-04-02 09:14] VITALS: BP 102/82; PULSE 72; TEMP 36.4; O2SAT 99; BMI 27.6
== END 2023-04-02 09:39 | disposition home or self-care (01) ==
PROVIDERS: PCP Physician Assistant Medical; Visit Provider Student in an Organized Health Care Education/Training Program
DX: M35.89 Other specified systemic involvement of connective tissue (principal); Z79.899 Other long term (current) drug therapy; R21 Rash and other nonspecific skin eruption; D75.839 Thrombocytosis, unspecified
CPT/HCPCS: 99214

== ENCOUNTER → 2023-04-02 09:06 | Outpatient (BNVA) | payer OTHER, SELFPAY | PROVIDERS: PCP Physician Assistant Medical; Visit Provider Student in an Organized Health Care Education/Training Program | DX: M35.9 Systemic involvement of connective tissue, unspecified (principal); R21 Rash and other nonspecific skin eruption; D75.839 Thrombocytosis, unspecified; Z79.899 Other long term (current) drug therapy | CPT/HCPCS: 99212 ==

== ENCOUNTER 2023-05-04 09:14 | Outpatient (AMB) | payer OTHER, SELFPAY ==
--- NOTE | 2023-05-04 09:21 | MHC.OFFVIS ---
Intake Vital Signs 05/04/23 09:25 Weight 169 lb 4 oz BP 108/70 Blood Pressure Location Lt brachial Position Sitting Pulse 79 Pulse Source Pulse Oximeter Pulse Oximetry (%) 78 L Oxygen Delivery Method Room Air Intake Visit Reasons: Botox-confirmed Intake Note: Botox Injection Airline Hostess Required: Yes Allergies gabapentin Allergy (Severe, Verified 05/04/23 09:21) Nausea and Vomiting shrimp Allergy (Severe, Verified 05/04/23 09:21) Nausea and Vomiting Medication List - Last Reconciled 05/04/23 by Sri Fletcher MD acetaminophen 500 mg PO Q6H PRN albuterol sulfate 90 mcg/actuation 2 puffs inhalation Q4H PRN 90 days baclofen 1 tab bid and 2 tabs qhs orally bedtime; 30 days kldwumkemkz-oplbyfidr-yftnpoyn 200-62.5-25 mcg (Trelegy Ellipta) 1 inh inhalation DAILY 30 days hydrocortisone 0.5% appl topical ibuprofen 600 mg PO Q6H PRN 14 days loratadine 10 mg PO DAILY 30 days magnesium oxide 400 mg PO DAILY 30 days metoprolol tartrate 25 mg PO BID naproxen 750 mg PO DAILY PRN omeprazole 40 mg PO BID onabotulinumtoxinA (Botox) 200 units IM ONCE 12 weeks pregabalin (Lyrica) 300 mg PO BID 30 days propylene glycol-glycerin 1-0.3 % (Artificial Tears (glycerin-peg)) 1 drp ophthalmic (eye) BID ubrogepant 100 mg orally 1 tab at onset of migraine, may repeat in 2 hrs (max 200mg/day) PRN; 32 days umeclidinium 62.5 mcg/actuation (Incruse Ellipta) 1 inh inhalation DAILY 30 days verapamil ER 240 mg PO DAILY 30 days HPI HPI Comments History of Present Illness Details 47 y/o female comes for treatment of migraines with botox ??? Most frequent reported adverse reactions following injection of botox for chronic migraine include neck pain (9%), headache(5%), eyelid ptosis(4%), migraine(4%), muscular weakness(4%), musculoskeletal stiffness(4%), bronchitis(3%), injection site pain (3%), musculoskeletal pain(3%), myalgia(3%), facial paresis(2%), HTN(2%) and muscle spasms(2%) were discussed in detail. ??? Botulinum toxin typeA 200units Lot no C [id number] expiration Sep 2025 was diluted with 4 cc of normal saline . ??? Muscles injected- ??? Frontalis 4 sites ??? Procerus 1 site ??? Director Of Laboratory Operations- 2 sites ??? Temporalis- 8 sites ??? Occipitalis- 6 sites ??? Cervical paraspinals- 4 sitesh ??? Trapezius- 6 sites- 10units each ??? 5 units each in 31 site ??? Total use- 185units ??? Discarded-15units PFS Medical History Chronic migraine without aura Hypergammaglobulinemia Thrombocytosis Long-term use of Plaquenil COVID-19 Carpal tunnel syndrome on both sides Cataract Pre-op chest exam JEWEL on CPAP Chronic restrictive lung disease LAVONNE positive Bronchitis, asthmatic Dyspnea Chest pain Surgical History H/O elbow surgery Hx of cataract extraction History of carpal tunnel release of both wrists Hx of section Hx of tubal ligation Hx of cholecystectomy H/O: hysterectomy Family History Mother Diabetes HTN (hypertension) CVD (cardiovascular disease) Ovarian cancer Father HTN (hypertension) CVD (cardiovascular disease) Maternal Grandfather Stomach cancer Maternal Uncle Lung cancer Mother Rheumatoid arthritis Social History Household Members: Children Alcohol intake: never Patient Tobacco Use Status: Never used Tobacco Current occupational status: disabled Female Reproductive History Menstrual Age of Menarche: 13 Physical Exam Const General: cooperative and no acute distress Orientation/consciousness: patient oriented x3 HEENT Head: Yes normocephalic Back/Spine/Pelvis Other: Left paraspinal tenderness. Neuro General: patient oriented x3 and CN's II-XI intact bilaterally Cognition (Neuro): normal cognition Gait exam (Neuro): Antalgic gait present Motor exam (neuro): 5/5 motor strength present throughout Office Procedures Botulinum toxin Injection 90649 - Migraine Procedure code (CPT) selection complete Office Meds onabotulinumtoxinA 200 unit solution for injection Performing Provider: Sri Fletcher MD Performing Location: [facility] [place] [facility] Administered by: Sri Fletcher MD on 05/04/23 09:47 Dose Route Admin Location Dispensed Lot Number Expiration Date [facility] Physics Technical Officer 185 unit subcut 200 units [id number] 09/09/25 1201-8920-44 ALLERGAN/BOTOX Comments: see hpi Assessment & Plan Assessment & Plan (1) Chronic migraine without aura: Code(s): G43.709 - Chronic migraine without aura, not intractable, without status migrainosus (2) Migraine with aura, intractable, without status migrainosus: Code(s): G43.119 - Migraine with aura, intractable, without status migrainosus Plan Patient tolerated the procedure well she will call with any side effects Orders: Orders AMB Botulinum toxin Injection - Patient Supplied Today G43.709 - Chronic migraine without aura, not intractable, without status migrainosus Coding Level of Care Code Est Pt Level 1 (07844) Diagnoses Chronic migraine without aura G43.709 Migraine with aura, intractable, without status migrainosus G43.119 CPT Codes Botox Injection - Botox 3: 47902 - Migraine ([id number])
[2023-05-04 09:25] VITALS: BP 108/70; PULSE 79; O2SAT 78
== END 2023-05-04 10:10 | disposition home or self-care (01) ==
PROVIDERS: PCP Physician Assistant Medical; Visit Provider Psychiatry & Neurology Neurology
DX: G43.709 Chronic migraine without aura, not intractable, without status migrainosus (principal)
CPT/HCPCS: 64615

== ENCOUNTER → 2023-05-04 09:14 | Outpatient (BNVA) | payer OTHER, SELFPAY | PROVIDERS: PCP Physician Assistant Medical; Visit Provider Psychiatry & Neurology Neurology | DX: G43.709 Chronic migraine without aura, not intractable, without status migrainosus (principal); G43.119 Migraine with aura, intractable, without status migrainosus | CPT/HCPCS: 64615; 99211; J0585 ==

== ENCOUNTER 2023-06-07 13:55 | Outpatient (RCR) | payer OTHER, SELFPAY ==
[2023-06-07 14:00] VITALS: BP 128/75; PULSE 73
--- NOTE | 2023-06-07 15:26 | MHC.PT.EP ---
[facility] [place] Office [place] Office [place] Office [address] Kary Aggarwal [address] [phone] F: [phone] F: [phone] F: [phone] F: [phone] Physical Therapy Plan of Care Date of Evaluation: 06/07/23 Date of Surgery: NA Diagnosis: Headache, unspecified. Other muscle spasm Assessment: Alberto is a 47 year old female who is referred to PT for Headache, unspecified, Other muscle spasm . She reports of having pain in her neck for the last 5 years. She denies any trauma or falls but states she has a diagnosis of fibromyalgia. On PT examination she presented with TTP over L UT, L levator scap, B alfredo scap- L>R, constant pain of 5/10 which is worse with L SL, decreased cervical ROM, decreased scap and cervical muscle strength, and altered posture. She is independent with all ADLs but has pain with them. She works in food services. She would benefit from skilled PT to address the aforementioned impairments and improve tolerance to functional activities. Frequency and Duration: The patient will be seen 2/week for 5 weeks Short Term Goals: 1. Pt will have 50% decrease in pain which will enable her to sleep through the night in 2 weeks. 2. Pt will be able to move her B UE through all planes of motion without pain or increased tissue tension which will enable her to dress her upper body without pain in 3 weeks. Printed Products Assembler Goals: 1. Pt will demonstrate an increase in muscle strength by 1 grade which will enable her to perform IADLS at home without pain in 5 weeks. 2. Pt will be independent with HEP for symptom management and maintenance following d/c in 5 weeks. Treatment Plan: Modalities to reduce pain, spasms and effusion. Manual therapy to restore motion and function. Therapeutic exercise to improve strength and flexibility. Neuromuscular re-education for posture and balance. Therapeutic activities to return to functional activities of daily living. Electronically signed by: Roseanna Michel PT DPT Please sign and return to therapist. Thank you for your referral.
--- NOTE | 2023-06-25 15:45 | MHC.PT.DC ---
[facility] [place] Office [place] Office [place] Office [address] Goyo Aggarwal [address] [phone] F: [phone] F: [phone] F: [phone] F: [phone] Physical Therapy Discharge Report Diagnosis: Headache, unspecified. Other muscle spasm Date of Surgery: NA Date of Evaluation: 06/07/23 Date of Discharge: 06/25/23 Treatments to Date: 1 Cancellations to Date: 1 No Shows to Date: 2 Discharge Status: Visit Non-compliance Discharge Summary: Alberto canceled 1 and no showed 2 appointments after her evaluation. She does not have any more appointments booked. She is therefore being d/c from PT for non compliance per our attendance policy. Electronically signed by: Roseanna Michel PT DPT Please sign and return to therapist. Thank you for your referral.
== END 2023-06-25 15:45 | disposition home or self-care (01) ==
LOC: HO.PT 13:55
PROVIDERS: PCP Internal Medicine; Visit Provider Nurse Practitioner Family
DX: R51.9 Headache, unspecified (principal); M62.838 Other muscle spasm
CPT/HCPCS: 97110; 97161

== ENCOUNTER 2023-08-12 13:19 | Outpatient (AMB) | payer OTHER, SELFPAY ==
[2023-08-12 13:58] VITALS: BP 118/70; PULSE 80; RESP 17; O2SAT 97; BMI 26.6
--- NOTE | 2023-08-12 13:58 | MHC.OFFVIS ---
Intake Vital Signs 08/12/23 13:58 Height 5 ft 6 in Weight 165 lb BMI 26.6 BP 118/70 Blood Pressure Location Lt brachial Position Sitting Respiration 17 Pulse 80 Pulse Source Pulse Oximeter Pulse Oximetry (%) 97 Oxygen Delivery Method Room Air Intake Visit Reasons: Botox - Confirmed Intake Note: Pt presents for Botox injections. Fuel Cell Battery Technician Required: No Allergies gabapentin Allergy (Severe, Verified 08/12/23 13:58) Nausea and Vomiting shrimp Allergy (Severe, Verified 08/12/23 13:58) Nausea and Vomiting Medication List - Last Reconciled 08/12/23 by Sri Fletcher MD acetaminophen 500 mg PO Q6H PRN albuterol sulfate 90 mcg/actuation 2 puffs inhalation Q4H PRN 90 days baclofen 1 tab bid and 2 tabs qhs orally bedtime; 30 days cholecalciferol (vitamin D3) 50 mcg PO DAILY 30 days uhcnnnfddkq-tgyobpdfi-tncpyzxs 200-62.5-25 mcg (Trelegy Ellipta) 1 inh inhalation DAILY 30 days hydrocortisone 0.5% appl topical ibuprofen 600 mg PO Q6H PRN 14 days loratadine 10 mg PO DAILY 30 days magnesium oxide 400 mg PO DAILY 30 days metoprolol tartrate 25 mg PO BID naproxen 750 mg PO DAILY PRN omeprazole 40 mg PO BID onabotulinumtoxinA (Botox) 200 units IM ONCE 12 weeks pregabalin (Lyrica) 300 mg PO BID 30 days propylene glycol-glycerin 1-0.3 % (Artificial Tears (glycerin-peg)) 1 drp ophthalmic (eye) BID ubrogepant 100 mg orally 1 tab at onset of migraine, may repeat in 2 hrs (max 200mg/day) PRN; 32 days umeclidinium 62.5 mcg/actuation (Incruse Ellipta) 1 inh inhalation DAILY 30 days verapamil ER 240 mg PO DAILY 30 days HPI HPI Comments History of Present Illness Details 47 y/o female comes for treatment of migraines with botox How many migraine days prior to botox- 20-25/month How long do the migraines last- 1-2 days Intensity of migraine8/10 ER visits related to migraine multiple Effectiveness of botox from last two treatment(s) How many migraine days since receiving treatment: 3-4 /month Change? in intensity of migraine?decreased Change in frequency of migraine?decreased Change in use of acute medication for migraine?decreased Change in quality of life? good ER visits related to migraine? none Have at least three months elapsed since last treatment (Last botox date - frequency of injections)05/04/23 ??? Most frequent reported adverse reactions following injection of botox for chronic migraine include neck pain (9%), headache(5%), eyelid ptosis(4%), migraine(4%), muscular weakness(4%), musculoskeletal stiffness(4%), bronchitis(3%), injection site pain (3%), musculoskeletal pain(3%), myalgia(3%), facial paresis(2%), HTN(2%) and muscle spasms(2%) were discussed in detail. ??? Botulinum toxin typeA 200units Lot no C [id number] expiration November 2025 was diluted with 4 cc of normal saline . ??? Muscles injected- ??? Frontalis 4 sites ??? Procerus 1 site ??? Doughmaker- 2 sites ??? Temporalis- 8 sites ??? Occipitalis- 6 sites ??? Cervical paraspinals- 4 sites ??? Trapezius- 6 sites- 10units each ??? 5 units each in 31 site ??? Total use- 185units ??? Discarded-15units [facility] Medical History Chronic migraine without aura Hypergammaglobulinemia Thrombocytosis Long-term use of Plaquenil COVID-19 Carpal tunnel syndrome on both sides Cataract Pre-op chest exam JEWEL on CPAP Chronic restrictive lung disease LAVONNE positive Bronchitis, asthmatic Dyspnea Chest pain Surgical History H/O elbow surgery Hx of cataract extraction History of carpal tunnel release of both wrists Hx of section Hx of tubal ligation Hx of cholecystectomy H/O: hysterectomy Family History Mother Diabetes HTN (hypertension) CVD (cardiovascular disease) Ovarian cancer Father HTN (hypertension) CVD (cardiovascular disease) Maternal Grandfather Stomach cancer Maternal Uncle Lung cancer Mother Rheumatoid arthritis Social History Household Members: Children Alcohol intake: never Patient Tobacco Use Status: Never used Tobacco Current occupational status: disabled Female Reproductive History Menstrual Age of Menarche: 13 Physical Exam Vital Signs: Last Vital Signs Pulse 80 08/12/23 13:58 Resp 17 08/12/23 13:58 BP 118/70 08/12/23 13:58 Pulse Ox 97 08/12/23 13:58 Oxygen Delivery Method Room Air 08/12/23 13:58 BMI result Body Mass Index 26.6 Const General: cooperative and no acute distress Orientation/consciousness: patient oriented x3 HEENT Head: Yes normocephalic Back/Spine/Pelvis Other: Left paraspinal tenderness. Neuro General: patient oriented x3 and CN's II-XI intact bilaterally Cognition (Neuro): normal cognition Gait exam (Neuro): Antalgic gait present Motor exam (neuro): 5/5 motor strength present throughout Office Procedures Botulinum toxin Injection 94164 - Migraine Procedure code (CPT) selection complete Office Meds onabotulinumtoxinA 200 unit solution for injection Performing Provider: Sri Fletcher MD Performing Location: [facility] Administered by: Sri Fletcher MD on 08/12/23 14:24 Dose Route Admin Location Dispensed Lot Number Expiration Date [facility] Department Store Salesperson 185 unit IM 200 units [id number] 11/07/25 4575-9260-42 ALLERGAN/BOTOX Comments: see hpi Assessment & Plan Assessment & Plan (1) Chronic migraine without aura: Code(s): G43.709 - Chronic migraine without aura, not intractable, without status migrainosus (2) Migraine with aura, intractable, without status migrainosus: Code(s): G43.119 - Migraine with aura, intractable, without status migrainosus Plan Patient tolerated the procedure well she will call with any side effects Orders: Orders AMB Botulinum toxin Injection - Patient Supplied Today G43.709 - Chronic migraine without aura, not intractable, without status migrainosus Coding Level of Care Code Est Pt Level 1 (08584) Diagnoses Chronic migraine without aura G43.709 Migraine with aura, intractable, without status migrainosus G43.119 CPT Codes Botox Injection - Botox 3: 65181 - Migraine ([id number])
== END 2023-08-12 14:20 | disposition home or self-care (01) ==
PROVIDERS: PCP Internal Medicine; Visit Provider Psychiatry & Neurology Neurology
DX: G43.119 Migraine with aura, intractable, without status migrainosus (principal)
CPT/HCPCS: 64615

== ENCOUNTER → 2023-08-12 13:19 | Outpatient (BNVA) | payer OTHER, SELFPAY | PROVIDERS: PCP Internal Medicine; Visit Provider Psychiatry & Neurology Neurology | DX: G43.709 Chronic migraine without aura, not intractable, without status migrainosus (principal); G43.119 Migraine with aura, intractable, without status migrainosus | CPT/HCPCS: 64615; 99211; J0585 ==

== ENCOUNTER 2023-09-03 08:52 | Outpatient (AMB) | payer OTHER, SELFPAY ==
--- NOTE | 2023-09-03 08:58 | MHC.OFFVIS ---
Intake Vital Signs 09/03/23 08:59 Height 5 ft 6 in Weight 170 lb 6 oz BMI 27.5 BP 112/64 Blood Pressure Location Rt brachial Position Sitting Respiration 17 Pulse 80 Pulse Source Pulse Oximeter Pulse Oximetry (%) 98 Oxygen Delivery Method Room Air Intake Visit Reasons: 4m F/u migraine - CONF Intake Note: Pt presents for 4 month follow up for migraines. Food Service Representative Required: No Allergies gabapentin Allergy (Severe, Verified 09/03/23 08:59) Nausea and Vomiting shrimp Allergy (Severe, Verified 09/03/23 08:59) Nausea and Vomiting Medication List - Last Reconciled 09/03/23 by Alea Lake, EMERALD acetaminophen 500 mg PO Q6H PRN albuterol sulfate 90 mcg/actuation 2 puffs inhalation Q4H PRN 90 days baclofen 1 tab bid and 2 tabs qhs orally bedtime; 30 days cholecalciferol (vitamin D3) 50 mcg PO DAILY 30 days qivmravdsuf-diezandak-vlptwbbz 200-62.5-25 mcg (Trelegy Ellipta) 1 inh inhalation DAILY 30 days hydrocortisone 0.5% appl topical ibuprofen 600 mg PO Q6H PRN 14 days loratadine 10 mg PO DAILY 30 days magnesium oxide 400 mg PO DAILY 30 days metoprolol tartrate 25 mg PO BID naproxen 750 mg PO DAILY PRN omeprazole 40 mg PO BID onabotulinumtoxinA (Botox) 200 units IM ONCE 12 weeks pregabalin (Lyrica) 300 mg PO BID 30 days ubrogepant 100 mg orally 1 tab at onset of migraine, may repeat in 2 hrs (max 200mg/day) PRN; 32 days umeclidinium 62.5 mcg/actuation (Incruse Ellipta) 1 inh inhalation DAILY 30 days verapamil ER 240 mg PO DAILY 30 days HPI HPI Comments History of Present Illness Details 47-year-old female presents for f/u visit of migraine, restless legs, sleep apnea. Pt denies any significant interval medical changes. Her restless legs are stable. She may feel some tenderness in her legs, which she attributes to her fibromyalgia. She is compliant with her baclofen, Lyrica. She has not been using her CPAP machine. She is not snoring. She feels like she wakes up refreshed. May go little sleepy during the day, she attributes this to some of her medications.. She has been having a newer headache that started about 6 months ago, but is increasing in frequency. This is a severe right sided neck to occipital region, shooting, pulsating radiating pain. This may start in the neck or the upper occipital region. A/w photophobia and allodynia. Lasts approx 1 hour, never repeats in 1 day, can occur 2-3 x's in 1 week, but then may not occur for a few weeks. She does endorse chronic neck tightness. No other shooting neck pains. After her chronic migraine Botox injections, this occurs less, but increases as her next dose is due. Baseline migraine headache characteristics: Usually mod-severe right sided, can be left sided, pressure/throbbing pain a/w photophobia, phonophobia, tiredness, cognitive difficulties. Current number of typical migraine days per month: 1 migraine day per week, which responds to Ubrlevy. Average painfulness of these migraines: Moderate Current number of non-migraine headache days per month: No regular or TTH headaches. Average painfulness of these headaches: n/a Current number of days of acute medication use per month: 4 Previous number of migraine days per month prior to starting current preventive tx: 20-25 days per month. [facility] Medical History Chronic migraine without aura Hypergammaglobulinemia Thrombocytosis Long-term use of Plaquenil COVID-19 Carpal tunnel syndrome on both sides Cataract Pre-op chest exam JEWEL on CPAP Chronic restrictive lung disease LAVONNE positive Bronchitis, asthmatic Dyspnea Chest pain Surgical History H/O elbow surgery Hx of cataract extraction History of carpal tunnel release of both wrists Hx of section Hx of tubal ligation Hx of cholecystectomy H/O: hysterectomy Family History Mother Diabetes HTN (hypertension) CVD (cardiovascular disease) Ovarian cancer Father HTN (hypertension) CVD (cardiovascular disease) Maternal Grandfather Stomach cancer Maternal Uncle Lung cancer Mother Rheumatoid arthritis Social History Household Members: Children Alcohol intake: never Patient Tobacco Use Status: Never used Tobacco Current occupational status: disabled Female Reproductive History Menstrual Age of Menarche: 13 Physical Exam Vital Signs: Last Vital Signs Pulse 80 09/03/23 08:59 Resp 17 09/03/23 08:59 BP 112/64 09/03/23 08:59 Pulse Ox 98 09/03/23 08:59 Oxygen Delivery Method Room Air 09/03/23 08:59 BMI result Body Mass Index 27.5 Const General: cooperative and no acute distress Orientation/consciousness: patient oriented x3 Resp Effort & Inspection: normal respiratory effort and able to speak in complete sentences Neuro Other: Right greater occipital nerve distribution focal tenderness. Bilateral posterior cervical tightness and tenderness Right Spurling test elicits right greater central nerve region pain. Muscle strength 5/5 throughout General: patient oriented x3 Cranial nerves: Yes CN's II-XII intact bilaterally Cognition (Neuro): normal cognition Psych Appearance: grossly normal Mental Status: mental status grossly normal Speech and movement: Normal speech and movement present Affect: normal affect Attitude: cooperative Assessment & Plan Assessment & Plan (1) Cervical paraspinal muscle spasm: Code(s): M62.838 - Other muscle spasm (2) Occipital neuralgia of right side: Code(s): M54.81 - Occipital neuralgia (3) Cervicalgia: Code(s): M54.2 - Cervicalgia (4) Chronic migraine without aura: Code(s): G43.709 - Chronic migraine without aura, not intractable, without status migrainosus (5) Restless leg syndrome: Code(s): G25.81 - Restless legs syndrome (6) JEWEL on CPAP: Comment: No longer using CPAP Code(s): G47.33 - Obstructive sleep apnea (adult) (pediatric); Z99.89 - Dependence on other enabling machines and devices Plan For right occipital neuralgia s/s: Patient advised to undergo C-spine x-ray with flexion extension Start PT Future considerations: Referral to pain management for evaluation for possible nerve block and trigger point injections. For left facial pain, pain, cervicalgia- Continue Baclofen to 10mg qam and 20mg qhs. Continue Lyrica 300mg bid. For chronic migraine: Continue Botox. Continue Verapamil SR 240 mg bid. Continue prn Ubrelvy. Previous acute trials: Sumatriptan, Rizatriptan- ineffective. ? For RLS- Continue Lyrica, Baclofen, Magnesium Previous trials- Requip. ? For JEWEL- May continue to hold CPAP 4.4 cmH2O, with goal of nightly > 4 hours. Consider f/u HST to assess stautus of sleep apnea as pt has had sustained > 10% weight loss since last sleep study. Follow-up in 3 months or sooner as needed Orders: Orders PT Evaluation and Treatment Today M54.2 - Cervicalgia, M54.81 - Occipital neuralgia, M62.838 - Other muscle spasm XR cervical spine 4V Today M54.2 - Cervicalgia, M54.81 - Occipital neuralgia, M62.838 - Other muscle spasm XR cervical spine w flex/ext Today M54.2 - Cervicalgia, M54.81 - Occipital neuralgia, M62.838 - Other muscle spasm Medications: Refilled verapamil ER 240 mg PO DAILY 30 days 30 caps 6RF Coding Level of Care Code Est Pt Level 4 (86968) Diagnoses Cervical paraspinal muscle spasm M62.838 Occipital neuralgia of right side M54.81 Cervicalgia M54.2 Chronic migraine without aura G43.709 Restless leg syndrome G25.81 JEWEL on CPAP G47.33; Z99.89
[2023-09-03 08:59] VITALS: BP 112/64; PULSE 80; RESP 17; O2SAT 98; BMI 27.5
== END 2023-09-03 09:47 | disposition home or self-care (01) ==
PROVIDERS: PCP Physician Assistant Medical; Visit Provider Nurse Practitioner Family
DX: M62.838 Other muscle spasm (principal); M54.81 Occipital neuralgia; M54.2 Cervicalgia; G43.709 Chronic migraine without aura, not intractable, without status migrainosus; G25.81 Restless legs syndrome; G47.33 Obstructive sleep apnea (adult) (pediatric); Z99.89 Dependence on other enabling machines and devices
CPT/HCPCS: 99214

== ENCOUNTER → 2023-09-03 08:52 | Outpatient (BNVA) | payer OTHER, SELFPAY | PROVIDERS: PCP Physician Assistant Medical; Visit Provider Nurse Practitioner Family | DX: G43.709 Chronic migraine without aura, not intractable, without status migrainosus (principal); M62.838 Other muscle spasm; M54.81 Occipital neuralgia; M54.2 Cervicalgia; G25.81 Restless legs syndrome; G47.33 Obstructive sleep apnea (adult) (pediatric); Z79.899 Other long term (current) drug therapy; Z99.89 Dependence on other enabling machines and devices | CPT/HCPCS: 99212 ==

== ENCOUNTER 2023-09-10 13:17 | Outpatient (AMB) | payer OTHER, SELFPAY ==
[2023-09-10 13:29] VITALS: PULSE 73; O2SAT 99; BMI 27.0
--- NOTE | 2023-09-10 13:29 | A.OFFVIS_ITS ---
Intake Vital Signs 09/10/23 13:29 Height 5 ft 6 in Weight 167 lb BMI 27.0 Pulse 73 Pulse Source Pulse Oximeter Pulse Oximetry (%) 99 Oxygen Delivery Method Room Air Intake Visit Reasons: Asthma Software Technician Required: No Allergies gabapentin Allergy (Severe, Verified 09/10/23 13:30) Nausea and Vomiting shrimp Allergy (Severe, Verified 09/10/23 13:30) Nausea and Vomiting HPI HPI Comments History of Present Illness Details The patient is a 47-year-old woman with a known history of obstructive sleep apnea who apparently was in the usual state health until September of 2019. During that time she became briefly ill with respiratory illness. The patient is very symptomatic with significant coughing shortness of breath and also was noted to be wheezing at that time. Since then the patient has had ongoing symptoms which vary from shortness breath and cough. Her cough tends to be nonproductive in nature. At times he had been croupy. Due to the significant coughing she has not been able to tolerate her CPAP therapy. Prior to this illness she was using her CPAP without any difficulties. Subsequently after that she was tested for COVID and her swab was negative. Although she is pretty sure that she had COVID when she was significantly ill back in September. Now she complains of chest discomfort the sometimes radiates to her back along with shortness of breath and she has been noted to be significantly tachycardic. She had been evaluated at [facility] in her blood work has been relatively unremarkable. She had a chest x-ray back in February which was read as no acute disease and also personally reviewed and agreed. 05/11/2021 the patient is here for a pulmonary follow-up visit. Overall she is doing about the same. Still complaining of the pleuritic chest discomfort. She was responding well to the Plaquenil. But, had to stop it due to visual changes. Initially her LAVONNE has been positive. She did have a follow-up with Rheumatology but her workup was negative. She was diagnosed with fibromyalgia. Now, she developed a skin rash. She did follow-up with Dermatology. I do encourage her to get a biopsy of the rash. In the meantime we will assess her for other connective tissue or inflammatory conditions that she has not been checked for as of yet such as sarcoid and vasculitis. 02/25/2022 the patient is here for a pulmonary follow-up visit. She still complaining the pleuritic chest discomfort. She did have relief from the Plaquenil. However, she started developing visual changes and had to be stopped. She was taking it twice a day of the time. Now, She no longer has any visual changes. Her pleuritic discomfort is moderate severity. Makes it hard for her to be able to breathe. We did review her CT scan of the chest that she had previously without any evidence of any pleural thickening or pleural effusions. Although she may indeed have the beginnings of a connective tissue disease resulting in some pleuritis. The patient is agreeable to trying some ibuprofen and also a lower dose Plaquenil with the hope that she can not tolerated without any visual changes. If she does develop the visual changes use stop it immediately. She continues use her CPAP. The CPAP therapy continues to be affecting beneficial. She does use it for more than 4 hours a night. She also continues with respiratory medicine. She has not required any prednisone would like to hold off on prednisone due to her diabetes. The patient may be a good candidate for Daliresp specially if she develops any worsening bronchitis. 05/22/2022 the patient is here for a pulmonary follow-up visit. She continues to have off and on substernal pleuritic chest pains. He has been follow-up with the by Rheumatology. 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 She will continue to monitor closely. Wound time he was kept on the Plaquenil. Patient also has been using her CPAP. The CPAP therapy continues to be affecting beneficial. He does use it for more than 4 hours a night. Unfortunate current mask makes it to uncomfortable for her weakness is too tight around her nose. I did have a large F20 mask that is a little bit her but does work. She can try this to see if this is a better fit for her. If this does work for her better than she considering medium F20 mask. I will submit this to her [email or web address] at this time. She continues with respiratory therapy with good effect. Denies any for prednisone or rescue therapy at this time. 11/20/2022 the patient is here for pulmon santino follow-up visit. The patient overall feels better. The substernal discomfort is improved. The inhaler tends to help with that. Although she still complaining of back pain. In the back issue otherwise in the thoracic area slightly not related to the underlying pulmonary issue. She also continues on the Plaquenil. She did go to her eye doctor and they did mention something abnormal although her vision is okay. I did encourage to continue the Plaquenil but to consider dropping it to just 1 daily and then follow up with her director project management with a copy of the note from the eye doctor in order for them to be able to make a better plan altogether. 03/12/2023 the patient is here for a pulmonary follow-up visit. She continues to have pleuritic chest pain. Gntg-[id number] severity. However, she is concerned about the Plaquenil. She does have some visual changes. We had decreased her Plaquenil from twice a day to once a day to minimize symptoms. However, she continues to have them. Therefore she is going to stop it altogether. We did review her chest imaging studies. She did have seen changes to her thoracic spine. Therefore request additional chest x-rays to make sure that the pain is not coming from there. Otherwise she continues on her respiratory medications with good effect. Initial prednisone at this time. The patient will follow up with Rheumatology in the coming months. No issues with her CPAP at this time. 09/10/2023 the patient is here for a pulmonary follow-up visit. Overall the patient continues to have significant weight loss after her bariatric surgery. She has not been using her CPAP at this time. The patient data she her goal weight. Therefore, based on her previous diagnosis of sleep apnea will go ahead and repeat her sleep study to see if she is still has underlying sleep apnea after his significant weight loss. the patient also continues have chest discomfort pulmonary pleuritic in nature. It is indeed reproducible. The patient had responded well to Plaquenil but after the visual changes she stopped it. Her original changes now better. She continues use the Trelegy inhaler with good effect. She has not required her rescue inhaler. She is also taking allergy medicines with good effect. Will follow-up after his sleep study. EPWORTH score 05/02. [facility] Medical History (Updated 09/10/23 @ 13:54 by Austen Carranza MD) JEWEL (obstructive sleep apnea) Chronic migraine without aura Hypergammaglobulinemia Thrombocytosis Long-term use of Plaquenil COVID-19 Carpal tunnel syndrome on both sides Cataract Pre-op chest exam JEWEL on CPAP Chronic restrictive lung disease LAVONNE positive Bronchitis, asthmatic Dyspnea Chest pain Surgical History H/O elbow surgery Hx of cataract extraction History of carpal tunnel release of both wrists Hx of section Hx of tubal ligation Hx of cholecystectomy H/O: hysterectomy Family History Mother Diabetes HTN (hypertension) CVD (cardiovascular disease) Ovarian cancer Father HTN (hypertension) CVD (cardiovascular disease) Maternal Grandfather Stomach cancer Maternal Uncle Lung cancer Mother Rheumatoid arthritis Social History Household Members: Children Alcohol intake: never Patient Tobacco Use Status: Never used Tobacco Current occupational status: disabled Female Reproductive History Menstrual Age of Menarche: 13 Review of Systems Const Reports daytime sleepiness, Denies headache(s) and Denies night sweats Eyes Denies change in vision ENT Denies change in voice, Denies headache(s), Denies lip swelling, Denies mouth pain, Reports nasal congestion, Reports nasal discharge, Reports neck pain and Denies tongue swelling Card Reports chest pain and Denies dyspnea Resp Denies change in phlegm color, Denies chest congestion, Reports cough, Denies hemoptysis and Denies dyspnea GI Reports dyspepsia and Reports heartburn Musc Reports back pain, Reports myalgias, Reports arthralgias and Reports neck pain Neuro Denies Neuro-related abnormal movements and Denies headache(s) Psych Denies no additional complaints Arthur/Lymph Denies easy bleeding and Denies lymphadenopathy Aller/Immun Denies lip swelling and Denies tongue swelling Physical Exam Vital Signs: Last Vital Signs Pulse 73 09/10/23 13:29 Pulse Ox 99 09/10/23 13:29 Oxygen Delivery Method Room Air 09/10/23 13:29 BMI result Body Mass Index 27.0 Const General: cooperative and no acute distress Nutritional Appearance: well nourished Orientation/consciousness: patient oriented x3 HEENT Head: Yes normocephalic Neck Neck: Yes normal visual inspection, Yes full ROM and Yes no lymphadenopathy Chest Chest palpation & inspection: tenderness Resp Effort & Inspection: normal respiratory effort and able to speak in complete sentences Auscultation: diminished lung sounds Cardio Rate: regular rate Rhythm: regular rhythm Heart sounds: S1 normal heart sound present and S2 normal heart sound present GI Palpation (GI): Soft to palpation Auscultation: normal bowel sounds Skin General skin exam: no rashes or lesions noted Neuro Other: Mild posterior cervical tightness. General: patient oriented x3, gait normal and CN's II-XI intact bilaterally Cognition (Neuro): normal cognition Motor exam (neuro): 5/5 motor strength present throughout Psych Appearance: grossly normal Mental Status: mental status grossly normal Speech and movement: Normal speech and movement present Affect: normal affect Attitude: cooperative Thought process: Normal thought process present Thought content: Normal thought content present Insight: Good insight present (Psych) Judgement: Good judgement present (Psych) Assessment & Plan Assessment & Plan (1) Chronic restrictive lung disease: Code(s): J98.4 - Other disorders of lung (2) Chest pain: Code(s): R07.9 - Chest pain, unspecified Qualifiers: Chest pain type: chest pain on breathing Qualified Code(s): R07.1 - Chest pain on breathing (3) JEWEL on CPAP: Comment: No longer using CPAP Code(s): G47.33 - Obstructive sleep apnea (adult) (pediatric); Z99.89 - Dependence on other enabling machines and devices (4) Bronchitis, asthmatic: Code(s): J45.909 - Unspecified asthma, uncomplicated Qualifiers: Asthma complication type: uncomplicated Asthma persistence: intermittent Asthma severity: mild Qualified Code(s): J45.20 - Mild intermittent asthma, uncomplicated (5) Low back pain radiating to left lower extremity: Code(s): M54.50 - Low back pain, unspecified; M79.605 - Pain in left leg (6) Systemic involvement of connective tissue, unspecified: Code(s): M35.9 - Systemic involvement of connective tissue, unspecified Plan: 47-year-old female with UCTD (e LAVONNE 1-40 speckled,? ATHLETIC MONITOR persistently elevated in high titres) returns for follow-up. She does not have symptoms suggestive of SLE, MCTD, Sjogren's or any other well-defined autoimmune connective tissue disease. Patient discontinued the hydroxychloroquine due to eye dryness without any change in her overall symptoms otherwise. I do not see any indication to start patient on DMARDs at this point. Re-evaluate in 6 months (7) Thrombocytosis: Code(s): D75.839 - Thrombocytosis, unspecified Plan: Her platelets were elevated last year. She states that she had labs recently done at an outside facility. Results not available to me. I advised patient to follow-up with her PCP and consider evaluation by Hematology Plan continue Trelegy Continue short-acting beta agonists CXR Lidoderm patch to affected area holding CPAP therapy, trial F20 medium mask. Will repeat her PSG after her d ramatic weight loss follow-up in 6 months Orders: Orders XR chest 2V 09/10/23 R07.9 - Chest pain, unspecified RT home sleep study 09/10/23 G47.33 - Obstructive sleep apnea (adult) (pediatric) Medications: New lidocaine 5% (Lidoderm) leave on most painful area for up to 12 hrs 1 patch topical DAILY 30 days 30 ea 4RF G89.12 - Acute post-thoracotomy pain Coding Level of Care Code Est Pt Level 4 (28671) Diagnoses Chronic restrictive lung disease J98.4 Chest pain on breathing R07.1 Chest pain type: chest pain on breathing JEWEL on CPAP G47.33; Z99.89 Mild intermittent asthmatic bronchitis without complication J45.20 Asthma complication type: uncomplicated Asthma persistence: intermittent Asthma severity: mild Low back pain radiating to left lower extremity M54.50; M79.605 Systemic involvement of connective tissue, unspecified M35.9 Thrombocytosis D75.839 Time Spent (min) 17
== END 2023-09-10 13:57 | disposition home or self-care (01) ==
PROVIDERS: PCP Physician Assistant Medical; Visit Provider Hospitalist
DX: J98.4 Other disorders of lung (principal); R07.1 Chest pain on breathing; G47.33 Obstructive sleep apnea (adult) (pediatric); Z99.89 Dependence on other enabling machines and devices; J45.20 Mild intermittent asthma, uncomplicated; M54.50 Low back pain, unspecified; M79.605 Pain in left leg; M35.9 Systemic involvement of connective tissue, unspecified; D75.839 Thrombocytosis, unspecified
CPT/HCPCS: 99214

== ENCOUNTER → 2023-09-10 13:17 | Outpatient (BNVA) | payer OTHER, SELFPAY | PROVIDERS: PCP Physician Assistant Medical; Visit Provider Hospitalist | DX: J98.4 Other disorders of lung (principal); R07.1 Chest pain on breathing; G47.33 Obstructive sleep apnea (adult) (pediatric); J45.20 Mild intermittent asthma, uncomplicated; M54.50 Low back pain, unspecified; M79.605 Pain in left leg; M35.9 Systemic involvement of connective tissue, unspecified; D75.839 Thrombocytosis, unspecified; Z99.89 Dependence on other enabling machines and devices | CPT/HCPCS: 99212 ==

== ENCOUNTER 2023-09-28 15:13 | Outpatient (AMB) | payer OTHER, SELFPAY ==
--- NOTE | 2023-09-28 15:44 | MHC.OFFVIS ---
Intake Vital Signs 09/28/23 15:45 Height 5 ft 6 in Weight 168 lb 6.931 oz BMI 27.2 BP 108/60 Blood Pressure Location Lt brachial Position Sitting Pulse 81 Pulse Source Pulse Oximeter Pulse Oximetry (%) 99 Oxygen Delivery Method Room Air Intake Visit Reasons: UCTD Intake Note: Patient last seen 03/25/23 presents today for follow up. Semiconductor Wafers Saw Operator Required: Yes Semiconductor Wafers Saw Operator Language: Cupola Liner Helper Name: Frank [email or web address] Information Interpreted: clinical only Accompanied by: Self / Same As Patient Allergies gabapentin Allergy (Severe, Verified 09/28/23 15:49) Nausea and Vomiting shrimp Allergy (Severe, Verified 09/28/23 15:49) Nausea and Vomiting Medication List - Last Reconciled 09/28/23 by Dale Tompkins MD acetaminophen 500 mg PO Q6H PRN albuterol sulfate 90 mcg/actuation 2 puffs inhalation Q4H PRN 90 days baclofen 1 tab bid and 2 tabs qhs orally bedtime; 30 days cholecalciferol (vitamin D3) 50 mcg PO DAILY 30 days dymhxettpxy-fhcsmrsdp-oxdozadx 200-62.5-25 mcg (Trelegy Ellipta) 1 inh inhalation DAILY 30 days hydrocortisone 0.5% appl topical ibuprofen 600 mg PO Q6H PRN 14 days ipratropium-albuterol 0.5 mg-3 mg(2.5 mg base)/3 mL mL inhalation lidocaine 5% (Lidoderm) 1 patch topical DAILY 30 days loratadine 10 mg PO DAILY 30 days magnesium oxide 400 mg PO DAILY 30 days metoprolol tartrate 25 mg PO BID montelukast 10 mg PO DAILY naproxen 750 mg PO DAILY PRN nebulizers As directed omeprazole 40 mg PO BID onabotulinumtoxinA (Botox) 200 units IM ONCE 12 weeks pregabalin (Lyrica) 300 mg PO BID 30 days ubrogepant 100 mg orally 1 tab at onset of migraine, may repeat in 2 hrs (max 200mg/day) PRN; 32 days umeclidinium 62.5 mcg/actuation (Incruse Ellipta) 1 inh inhalation DAILY 30 days verapamil ER 240 mg PO DAILY 30 days HPI HPI Comments History of Present Illness Details 48-year-old female with UCTD presents for follow-up. She is not on any DMARDs. She states that she continues to have intermittent pain in her fingers and knuckles. Nothing significant. No significant rashes. Doing well overall. Initial history: 46 y/o f here for evaluation of +ve LAVONNE she had a +ve LAVONNE 1:40 speckled, subserologies were -ve & when LAVONNE was repeated it was negative last year. Patient continues to have polyarthralgias mostly affecting her hands, the pain is usually starts in the afternoon and improves with activity. She is also complaining of a rash on her face. Complains of dry eyes and dry mouth. Uses artificial tears with some relief, she drinks plenty of water but continues to have a dry mouth. She continues to have the same chest pain and the side of her chest going backwards towards her spine. She mentions that she took Plaquenil 200 mg Twice daily for about 3 months which helped her MSK complaints, but then developed double vision 1 day and then she stopped it. She had a normal CT chest. She also mentions having an echo which I cannot review. She restarted it about 1 month ago by her seismograph shooter. She denies blood or frothy urine. No fever or unintentional weight loss [facility] Medical History JEWEL (obstructive sleep apnea) Chronic migraine without aura Hypergammaglobulinemia Thrombocytosis Long-term use of Plaquenil COVID-19 Carpal tunnel syndrome on both sides Cataract Pre-op chest exam JEWEL on CPAP Chronic restrictive lung disease LAVONNE positive Bronchitis, asthmatic Dyspnea Chest pain Surgical History H/O elbow surgery Hx of cataract extraction History of carpal tunnel release of both wrists Hx of section Hx of tubal ligation Hx of cholecystectomy H/O: hysterectomy Family History Mother Diabetes HTN (hypertension) CVD (cardiovascular disease) Ovarian cancer Father HTN (hypertension) CVD (cardiovascular disease) Maternal Grandfather Stomach cancer Maternal Uncle Lung cancer Mother Rheumatoid arthritis Social History Household Members: Children Alcohol intake: never Patient Tobacco Use Status: Never used Tobacco Current occupational status: disabled Female Reproductive History Menstrual Age of Menarche: 13 Review of Systems Musc Reports arthralgias Physical Exam Vital Signs: Last Vital Signs Pulse 81 09/28/23 15:45 BP 108/60 09/28/23 15:45 Pulse Ox 99 09/28/23 15:45 Oxygen Delivery Method Room Air 09/28/23 15:45 BMI result Body Mass Index 27.2 Const General: cooperative Nutritional Appearance: obese Orientation/consciousness: patient oriented x3 Limitations: no limitations HEENT Other: Moist oral mucosa, no oral ulcers Resp Effort & Inspection: normal respiratory effort and able to speak in complete sentences Auscultation: clear to auscultation bilaterally Cardio Rate: regular rate Rhythm: regular rhythm GI Inspection: No distended and Yes obesity Auscultation: normal bowel sounds Skin Other: Hyperpigmented spots on cheeks Neuro General: patient oriented x3 Extrem Other: Diffuse fibromyalgia tender points Normal nail fold capillaroscopy General: No no pedal edema Results Reviewed Results Reviewed: Laboratory Tests 12/13/20 12/13/20 12/13/20 10:35 10:35 10:35 WBC 9.6 Hgb 12.2 Plt Count 435 H ESR 25 H Creatinine 0.69 C-Reactive Protein 0.43 TSH 1.63 Rheumatoid Factor < 15.0 Cycl Citrul Peptide IgG LAVONNE Screen Sm (Obrien) Antibody SM/PIPE PULLER IgG Antibody Complement C3 Complement C4 12/13/20 12/13/20 12/13/20 10:35 10:35 10:35 WBC Hgb Plt Count ESR Creatinine C-Reactive Protein TSH IMPRESSION: Essentially unremarkable CT chest exam.? ? Dictated By:ALDA ACEVEDO MDSigned By:<Electronically signed by ALDA ACEVEDO MD in OV>09/04/20Rheumatoid Factor Cycl Citrul Peptide IgG <16 LAVONNE Screen NEGATIVE Sm (Obrien) Antibody <1.0 NEG SM/PIPE PULLER IgG Antibody 6.5 POS A Complement C3 142 Complement C4 30 IMPRESSION: Essentially unremarkable CT chest exam.? ? Dictated By: ALDA ACEVEDO MD signed By: <Electronically signed by ALDA ACEVEDO MD in OV> 09/04/20 Assessment & Plan Assessment & Plan (1) Systemic involvement of connective tissue, unspecified: Code(s): M35.9 - Systemic involvement of connective tissue, unspecified Plan: 48-year-old female with UCTD (e LAVONNE 1-40 speckled,? PIPE PULLER persistently elevated in high titres) returns for follow-up. She does not have symptoms suggestive of SLE, MCTD, Sjogren's or any other well-defined autoimmune connective tissue disease. Last visit, Patient discontinued the hydroxychloroquine due to eye dryness without any change in her overall symptoms otherwise. I do not see any indication to start patient on DMARDs at this point. Re-evaluate in 1 year Plan I spent 15 minutes reviewing patient's chart, evaluating patient counseling patient and documenting in the chart Coding Level of Care Code Est Pt Level 3 (57353) Diagnoses Systemic involvement of connective tissue, unspecified M35.9
[2023-09-28 15:45] VITALS: BP 108/60; PULSE 81; O2SAT 99; BMI 27.2
== END 2023-09-28 16:13 | disposition home or self-care (01) ==
PROVIDERS: PCP Physician Assistant Medical; Visit Provider Student in an Organized Health Care Education/Training Program
DX: M35.89 Other specified systemic involvement of connective tissue (principal)
CPT/HCPCS: 99213

== ENCOUNTER → 2023-09-28 15:13 | Outpatient (BNVA) | payer OTHER, SELFPAY | PROVIDERS: PCP Physician Assistant Medical; Visit Provider Student in an Organized Health Care Education/Training Program | DX: M35.9 Systemic involvement of connective tissue, unspecified (principal) | CPT/HCPCS: 99212 ==

== ENCOUNTER 2023-11-19 07:38 | Outpatient (AMB) | payer OTHER, SELFPAY ==
[2023-11-19 07:43] VITALS: BP 102/62; PULSE 83; RESP 16; O2SAT 98
--- NOTE | 2023-11-19 07:43 | MHC.OFFVIS ---
Intake Vital Signs 11/19/23 07:43 Height 5 ft 6 in BP 102/62 Blood Pressure Location Rt brachial Position Sitting Respiration 16 Pulse 83 Pulse Source Pulse Oximeter Pulse Oximetry (%) 98 Oxygen Delivery Method Room Air Intake Visit Reasons: Botox-CONF Intake Note: Pt presents to the office for Botox injections. Transit Mix Operator Required: No Allergies gabapentin Allergy (Severe, Verified 11/19/23 07:43) Nausea and Vomiting shrimp Allergy (Severe, Verified 11/19/23 07:43) Nausea and Vomiting HPI HPI Comments History of Present Illness Details 48 y/o female comes for treatment of migraines with botox How many migraine days prior to botox- 20-25/month How long do the migraines last- 1-2 days Intensity of migraine/10 ER visits related to migraine multiple Effectiveness of botox from last two treatment(s) How many migraine days since receiving treatment: 3-4 /month Change? in intensity of migraine?decreased Change in frequency of migraine?decreased Change in use of acute medication for migraine?decreased Change in quality of life? good ER visits related to migraine? none Have at least three months elapsed since last treatment (Last botox date - frequency of injections) 09/01 ??? Most frequent reported adverse reactions following injection of botox for chronic migraine include neck pain (9%), headache(5%), eyelid ptosis(4%), migraine(4%), muscular weakness(4%), musculoskeletal stiffness(4%), bronchitis(3%), injection site pain (3%), musculoskeletal pain(3%), myalgia(3%), facial paresis(2%), HTN(2%) and muscle spasms(2%) were discussed in detail. ??? Botulinum toxin typeA 200units Lot no C [id number] expiration January 2026 was diluted with 4 cc of normal saline . ??? Muscles injected- ??? Frontalis 4 sites ??? Procerus 1 site ??? Patented Hogshead Assembler- 2 sites ??? Temporalis- 8 sites ??? Occipitalis- 6 sites ??? Cervical paraspinals- 4 sites ??? Trapezius- 6 sites- 10units each ??? 5 units each in 31 site ??? Total use- 185units ??? Discarded-15units [facility] Medical History JEWEL (obstructive sleep apnea) Chronic migraine without aura Hypergammaglobulinemia Thrombocytosis Long-term use of Plaquenil COVID-19 Carpal tunnel syndrome on both sides Cataract Pre-op chest exam JEWEL on CPAP Chronic restrictive lung disease LAVONNE positive Bronchitis, asthmatic Dyspnea Chest pain Surgical History H/O elbow surgery Hx of cataract extraction History of carpal tunnel release of both wrists Hx of section Hx of tubal ligation Hx of cholecystectomy H/O: hysterectomy Family History Mother Diabetes HTN (hypertension) CVD (cardiovascular disease) Ovarian cancer Father HTN (hypertension) CVD (cardiovascular disease) Maternal Grandfather Stomach cancer Maternal Uncle Lung cancer Mother Rheumatoid arthritis Social History Household Members: Children Alcohol intake: never Patient Tobacco Use Status: Never used Tobacco Current occupational status: disabled Female Reproductive History Menstrual Age of Menarche: 13 Physical Exam Vital Signs: Last Vital Signs Pulse 83 11/19/23 07:43 Resp 16 11/19/23 07:43 BP 102/62 11/19/23 07:43 Pulse Ox 98 11/19/23 07:43 Oxygen Delivery Method Room Air 11/19/23 07:43 Const General: cooperative and no acute distress Orientation/consciousness: patient oriented x3 HEENT Head: Yes normocephalic Back/Spine/Pelvis Other: Left paraspinal tenderness. Neuro General: patient oriented x3 and CN's II-XI intact bilaterally Cognition (Neuro): normal cognition Gait exam (Neuro): Antalgic gait present Motor exam (neuro): 5/5 motor strength present throughout Office Procedures Botulinum toxin Injection 28647 - Migraine Procedure code (CPT) selection complete Office Meds onabotulinumtoxinA 200 unit solution for injection Performing Provider: Sri Fletcher MD Performing Location: [facility] Administered by: Sri Fletcher MD on 11/19/23 08:09 Dose Route Admin Location Dispensed Lot Number Expiration Date [facility] Utility Service Worker 185 unit IM 200 units [id number] 01/07/26 2148-7743-37 ALLERGAN/BOTOX Comments: see hpi Assessment & Plan Assessment & Plan (1) Chronic migraine without aura: Code(s): G43.709 - Chronic migraine without aura, not intractable, without status migrainosus (2) Migraine with aura, intractable, without status migrainosus: Code(s): G43.119 - Migraine with aura, intractable, without status migrainosus Plan Patient tolerated the procedure well she will call with any side effects Orders: Orders AMB Botulinum toxin Injection - Patient Supplied Today G43.709 - Chronic migraine without aura, not intractable, without status migrainosus Medications: New onabotulinumtoxinA 200 units IM ONCE 1 ea 0RF migraine G43.709 - Chronic migraine without aura, not intractable, without status migrainosus Coding Level of Care Code Est Pt Level 1 (33138) Diagnoses Chronic migraine without aura G43.709 Migraine with aura, intractable, without status migrainosus G43.119 CPT Codes Botox Injection - Botox 3: 19684 - Migraine ([id number])
== END 2023-11-19 08:02 | disposition home or self-care (01) ==
PROVIDERS: PCP Internal Medicine; Visit Provider Psychiatry & Neurology Neurology
DX: G43.119 Migraine with aura, intractable, without status migrainosus (principal)
CPT/HCPCS: 64615

== ENCOUNTER → 2023-11-19 07:38 | Outpatient (BNVA) | payer OTHER, SELFPAY | PROVIDERS: PCP Internal Medicine; Visit Provider Psychiatry & Neurology Neurology | DX: G43.709 Chronic migraine without aura, not intractable, without status migrainosus (principal); G43.119 Migraine with aura, intractable, without status migrainosus | CPT/HCPCS: 64615; 99211; J0585 ==

== ENCOUNTER 2023-11-30 14:30 | Outpatient (REF) | payer OTHER, SELFPAY ==
--- NOTE | ~2023-11-30 | XR_ITS ---
EXAMINATION: XR CHEST CLINICAL INFORMATION: Chest pain unspecified, patient states chest pain. COMPARISON: CT chest 09/04/2020. Chest radiograph 07/25/2020. TECHNIQUE: 2 views of the chest were obtained. FINDINGS: There is no gross pneumothorax. Mild dextroscoliosis of the thoracic spine. Surgical clips in the right upper quadrant. Lung volumes are low. Heart size is normal. Minimal degenerative changes in the thoracic spine. No gross pleural effusion. No focal consolidation to suggest pneumonia. XR/XR chest 2V IMPRESSION: No evidence of pneumonia.
== END 2023-11-30 14:31 | disposition home or self-care (01) ==
LOC: HO.XRAY 14:30
PROVIDERS: Absent Provider Nurse Practitioner Family; PCP Physician Assistant Medical; Visit Provider Hospitalist
DX: R07.9 Chest pain, unspecified (principal)
CPT/HCPCS: 71046

== ENCOUNTER 2023-12-07 13:21 | Outpatient (AMB) | payer OTHER, SELFPAY ==
--- NOTE | 2023-12-07 13:43 | A.OFFVIS_ITS ---
Vital Signs 12/07/23 13:53 Height 5 ft 6 in Weight 172 lb BMI 27.8 BP 115/72 Blood Pressure Location Lt brachial Position Sitting Pulse 86 Pulse Source Pulse Oximeter Pulse Oximetry (%) 96 Oxygen Delivery Method Room Air Intake Visit Reasons: 3 mo f/u-LVM w/address Intake Note: Patient presents for 3 month's f/u. Feeling pain almost every day on right knee. Feels more pain when knee is bending. Would like to know x-ray results. On January 24 having mommy makeover surgery and needs a clearance letter. Allergies gabapentin Allergy (Severe, Verified 12/07/23 13:50) Nausea and Vomiting shrimp Allergy (Severe, Verified 12/07/23 13:50) Nausea and Vomiting HPI Comments Details: 48-yr-old female presents for f/u visit. Pt denies any significant interval medical changes. Pt requesting clearance letter for upcoming plastic surgery procedure. Pt states she is having a tummy tuck d/t lower abdominal excess skin causes discomfort, especially when bending over. The procedure will be in [place], pt states that she will have 8 days of in-pt post-op care/monitoring. Her RLS are overall stable. She is active during the day. She has not been using her CPAP machine. She is not snoring. She feels like she wakes up refreshed. May go little sleepy during the day, she attributes this to some of her medications. Migraines are well controlled on Botox and Verapamil. Right occipital headache is better. She never had c-spine XR done. Baseline migraine headache characteristics: Migraine: Usually mod-severe right sided, can be left sided, pressure/throbbing pain a/w photophobia, phonophobia, tiredness, cognitive difficulties. Right occipital headache: a severe right sided neck to occipital region, shooting, pulsating radiating pain. This may start in the neck or the upper occipital region. A/w photophobia and allodynia. [facility] Medical History JEWEL (obstructive sleep apnea) Chronic migraine without aura Hypergammaglobulinemia Thrombocytosis Long-term use of Plaquenil COVID-19 Carpal tunnel syndrome on both sides Cataract Pre-op chest exam JEWEL on CPAP Chronic restrictive lung disease LAVONNE positive Bronchitis, asthmatic Dyspnea Chest pain Surgical History H/O elbow surgery Hx of cataract extraction History of carpal tunnel release of both wrists Hx of section Hx of tubal ligation Hx of cholecystectomy H/O: hysterectomy Family History Mother Diabetes HTN (hypertension) CVD (cardiovascular disease) Ovarian cancer Father HTN (hypertension) CVD (cardiovascular disease) Maternal Grandfather Stomach cancer Maternal Uncle Lung cancer Mother Rheumatoid arthritis Social History Household Members: Children Alcohol intake: never Patient Tobacco Use Status: Never used Tobacco Current occupational status: disabled Female Reproductive History Menstrual Age of Menarche: 13 Physical Exam Vital Signs: Last Vital Signs Pulse 86 12/07/23 13:53 BP 115/72 12/07/23 13:53 Pulse Ox 96 12/07/23 13:53 Oxygen Delivery Method Room Air 12/07/23 13:53 BMI result Body Mass Index 27.8 Const General: cooperative and no acute distress Orientation/consciousness: patient oriented x3 Resp Effort & Inspection: normal respiratory effort and able to speak in complete sentences Neuro General: patient oriented x3 Cranial nerves: Yes CN's II-XII intact bilaterally Cognition (Neuro): normal cognition Psych Appearance: grossly normal Mental Status: mental status grossly normal Speech and movement: Normal speech and movement present Affect: normal affect Attitude: cooperative Assessment & Plan Assessment & Plan (1) Restless leg syndrome: Code(s): G25.81 - Restless legs syndrome Category: Medical (2) JEWEL (obstructive sleep apnea): Code(s): G47.33 - Obstructive sleep apnea (adult) (pediatric) Category: Medical (3) Chronic migraine without aura: Code(s): G43.709 - Chronic migraine without aura, not intractable, without status migrainosus Category: Medical Plan For right occipital neuralgia s/s: Improving, monitor. Future considerations: Referral to pain management for evaluation for possible nerve block and trigger point injections. ? For left facial pain, pain, cervicalgia- Continue Baclofen 10mg qd-bid and 20mg qhs. Continue Lyrica 300mg bid. ? For chronic migraine: Continue Botox. Continue Verapamil SR 240 mg bid. Continue prn Ubrelvy. Previous acute trials: Sumatriptan, Rizatriptan- ineffective. ? For RLS- Continue Lyrica, Baclofen, Magnesium Previous trials- Requip. ? For JEWEL- May continue to hold CPAP 4.4 cmH2O, with goal of nightly > 4 hours. Pt advised to undergo HST to assess stautus of sleep apnea as pt has had sustained > 10% weight loss since last sleep study. At this point, patient is cleared to undergo upcoming plastic surgery procedure. ? Follow-up in 6 months or sooner as needed Orders: Orders RT home sleep study 12/13/23 G47.33 - Obstructive sleep apnea (adult) (pediatric) Coding Level of Care Code Est Pt Level 4 (73114) Diagnoses Restless leg syndrome G25.81 JEWEL (obstructive sleep apnea) G47.33 Chronic migraine without aura G43.709
[2023-12-07 13:53] VITALS: BP 115/72; PULSE 86; O2SAT 96; BMI 27.8
== END 2023-12-07 14:31 | disposition home or self-care (01) ==
PROVIDERS: PCP Physician Assistant Medical; Visit Provider Nurse Practitioner Family
DX: G25.81 Restless legs syndrome (principal); G47.33 Obstructive sleep apnea (adult) (pediatric); G43.709 Chronic migraine without aura, not intractable, without status migrainosus
CPT/HCPCS: 99214

== ENCOUNTER → 2023-12-07 13:21 | Outpatient (BNVA) | payer OTHER, SELFPAY | PROVIDERS: PCP Physician Assistant Medical; Visit Provider Nurse Practitioner Family | DX: G25.81 Restless legs syndrome (principal); G47.33 Obstructive sleep apnea (adult) (pediatric); G43.709 Chronic migraine without aura, not intractable, without status migrainosus | CPT/HCPCS: 99212 ==

== ENCOUNTER 2024-03-17 12:20 | Outpatient (AMB) | payer OTHER, SELFPAY ==
--- NOTE | 2024-03-17 12:50 | MHC.OFFVIS ---
Vital Signs 03/17/24 12:51 Height 5 ft 6 in Weight 171 lb 15.369 oz BMI 27.8 Pulse 81 Pulse Source Pulse Oximeter Pulse Oximetry (%) 100 Oxygen Delivery Method Room Air Intake Visit Reasons: Asthma Area Representative Required: No Allergies gabapentin Allergy (Severe, Verified 03/17/24 12:52) Nausea and Vomiting shrimp Allergy (Severe, Verified 03/17/24 12:52) Nausea and Vomiting HPI Comments Details: The patient is a 48-year-old woman with a known history of obstructive sleep apnea who apparently was in the usual state health until September of 2019. During that time she became briefly ill with respiratory illness. The patient is very symptomatic with significant coughing shortness of breath and also was noted to be wheezing at that time. Since then the patient has had ongoing symptoms which vary from shortness breath and cough. Her cough tends to be nonproductive in nature. At times he had been croupy. Due to the significant coughing she has not been able to tolerate her CPAP therapy. Prior to this illness she was using her CPAP without any difficulties. Subsequently after that she was tested for COVID and her swab was negative. Although she is pretty sure that she had COVID when she was significantly ill back in September. Now she complains of chest discomfort the sometimes radiates to her back along with shortness of breath and she has been noted to be significantly tachycardic. She had been evaluated at [facility] in her blood work has been relatively unremarkable. She had a chest x-ray back in February which was read as no acute disease and also personally reviewed and agreed. 03/17/2024 the patient is here for a pulmonary follow-up visit. Overall the patient continues to have significant weight loss after her bariatric surgery. She has not been using her CPAP at this time. The patient data she her goal weight. Therefore, based on her previous diagnosis of sleep apnea will go ahead and repeat her sleep study to see if she is still has underlying sleep apnea after his significant weight loss. the patient also continues have chest discomfort pulmonary pleuritic in nature. It is indeed reproducible.She has been complaining of a worsening productive cough, mild to mederatet. No fevers nor chills. No chest discomfort. She continues use the Trelegy inhaler with good effect. She has not required her rescue inhaler. She is also taking allergy medicines with good effect. Will follow-up after his sleep study. EPWORTH score 9/24. [facility] Medical History JEWEL (obstructive sleep apnea) Chronic migraine without aura Hypergammaglobulinemia Thrombocytosis Long-term use of Plaquenil COVID-19 Carpal tunnel syndrome on both sides Cataract Pre-op chest exam JEWEL on CPAP Chronic restrictive lung disease LAVONNE positive Bronchitis, asthmatic Dyspnea Chest pain Surgical History H/O elbow surgery Hx of cataract extraction History of carpal tunnel release of both wrists Hx of section Hx of tubal ligation Hx of cholecystectomy H/O: hysterectomy Family History Mother Diabetes HTN (hypertension) CVD (cardiovascular disease) Ovarian cancer Father HTN (hypertension) CVD (cardiovascular disease) Maternal Grandfather Stomach cancer Maternal Uncle Lung cancer Mother Rheumatoid arthritis Social History Household Members: Children Alcohol intake: never Patient Tobacco Use Status: Never used Tobacco Current occupational status: disabled Female Reproductive History Menstrual Age of Menarche: 13 Review of Systems Const Reports daytime sleepiness, Denies headache(s) and Denies night sweats Eyes Denies change in vision ENT Denies change in voice, Denies headache(s), Denies lip swelling, Denies mouth pain, Reports nasal congestion, Reports nasal discharge, Reports neck pain and Denies tongue swelling Card Reports chest pain and Denies dyspnea Resp Denies change in phlegm color, Denies chest congestion, Reports cough, Denies hemoptysis and Denies dyspnea GI Reports dyspepsia and Reports heartburn Musc Reports back pain, Reports myalgias, Reports arthralgias and Reports neck pain Neuro Denies Neuro-related abnormal movements and Denies headache(s) Psych Denies no additional complaints Arthur/Lymph Denies easy bleeding and Denies lymphadenopathy Aller/Immun Denies lip swelling and Denies tongue swelling Physical Exam Vital Signs: Last Vital Signs Pulse 81 03/17/24 12:51 Pulse Ox 100 03/17/24 12:51 Oxygen Delivery Method Room Air 03/17/24 12:51 BMI result Body Mass Index 27.8 Const General: cooperative and no acute distress Nutritional Appearance: well nourished Orientation/consciousness: patient oriented x3 HEENT Head: Yes normocephalic Neck Neck: Yes normal visual inspection, Yes full ROM and Yes no lymphadenopathy Chest Chest palpation & inspection: tenderness Resp Effort & Inspection: normal respiratory effort and able to speak in complete sentences Auscultation: diminished lung sounds Cardio Rate: regular rate Rhythm: regular rhythm Heart sounds: S1 normal heart sound present and S2 normal heart sound present GI Palpation (GI): Soft to palpation Auscultation: normal bowel sounds Skin General skin exam: no rashes or lesions noted Neuro Other: Mild posterior cervical tightness. General: patient oriented x3, gait normal and CN's II-XI intact bilaterally Cognition (Neuro): normal cognition Motor exam (neuro): 5/5 motor strength present throughout Psych Appearance: grossly normal Mental Status: mental status grossly normal Speech and movement: Normal speech and movement present Affect: normal affect Attitude: cooperative Thought process: Normal thought process present Thought content: Normal thought content present Insight: Good insight present (Psych) Judgement: Good judgement present (Psych) Assessment & Plan Assessment & Plan (1) Chronic restrictive lung disease: Code(s): J98.4 - Other disorders of lung Category: Medical (2) JEWEL on CPAP: Comment: No longer using CPAP Code(s): G47.33 - Obstructive sleep apnea (adult) (pediatric); Z99.89 - Dependence on other enabling machines and devices Category: Medical (3) Bronchitis, asthmatic: Code(s): J45.909 - Unspecified asthma, uncomplicated Category: Medical Qualifiers: Asthma complication type: uncomplicated Asthma persistence: intermittent Asthma severity: mild Qualified Code(s): J45.20 - Mild intermittent asthma, uncomplicated Plan start [facility] cough medicine continue Trelegy, will try to wean off Continue short-acting beta agonists Lidoderm patch to affected area holding CPAP therapy, trial F20 medium mask. Will repeat her PSG follow-up in 12 month Medications: New benzonatate 200 mg PO BID PRN 60 caps 5RF cough 30 days azithromycin 500 mg PO DAILY 5 tabs 0RF 5 days Changed From albuterol sulfate 90 mcg/actuation 2 puffs inhalation Q4H 90 days PRN 3 ea 3RF shortness of breath or wheezing To albuterol sulfate 90 mcg/actuation 2 puffs inhalation Q4H PRN 3 ea 3RF shortness of breath or wheezing 90 days Coding Level of Care Code Est Pt Level 4 (01923) Diagnoses Chronic restrictive lung disease J98.4 JEWEL on CPAP G47.33; Z99.89 Mild intermittent asthmatic bronchitis without complication J45.20 Asthma complication type: uncomplicated Asthma persistence: intermittent Asthma severity: mild Time Spent (min) 16
[2024-03-17 12:51] VITALS: PULSE 81; O2SAT 100; BMI 27.8
== END 2024-03-17 13:41 | disposition home or self-care (01) ==
PROVIDERS: PCP Physician Assistant Medical; Visit Provider Hospitalist
DX: J98.4 Other disorders of lung (principal); G47.33 Obstructive sleep apnea (adult) (pediatric); Z99.89 Dependence on other enabling machines and devices; J45.20 Mild intermittent asthma, uncomplicated
CPT/HCPCS: 99214

== ENCOUNTER → 2024-03-17 12:20 | Outpatient (BNVA) | payer OTHER, SELFPAY | PROVIDERS: PCP Physician Assistant Medical; Visit Provider Hospitalist | DX: G47.33 Obstructive sleep apnea (adult) (pediatric) (principal); J45.20 Mild intermittent asthma, uncomplicated; J98.4 Other disorders of lung; Z98.84 Bariatric surgery status | CPT/HCPCS: 99212 ==

== ENCOUNTER 2024-03-31 14:35 | Outpatient (AMB) | payer OTHER, SELFPAY ==
--- NOTE | 2024-03-31 14:38 | A.OFFVIS_ITS ---
Vital Signs 03/31/24 14:40 Height 5 ft 6 in Weight 170 lb BMI 27.4 BP 136/74 Blood Pressure Location Rt brachial Position Sitting Respiration 16 Pulse 101 H Pulse Source Pulse Oximeter Pulse Oximetry (%) 97 Oxygen Delivery Method Room Air Intake Visit Reasons: Botox - Confirmed Intake Note: Pt presents to the office for Botox injections for Migraines. Air Conditioning Manager Required: Yes Air Conditioning Manager Services: Air Conditioning Manager Present Air Conditioning Manager Name: Eva Swanson CMA Allergies gabapentin Allergy (Severe, Verified 03/31/24 14:39) Nausea and Vomiting shrimp Allergy (Severe, Verified 03/31/24 14:39) Nausea and Vomiting Medication List - Last Reconciled 03/31/24 by Sri Fletcher MD acetaminophen 500 mg PO Q6H PRN albuterol sulfate 90 mcg/actuation 2 puffs inhalation Q4H PRN 90 days azithromycin 500 mg PO DAILY 5 days baclofen 1 tab bid and 2 tabs qhs orally bedtime; 30 days benzonatate 200 mg PO BID PRN 30 days cholecalciferol (vitamin D3) 50 mcg PO DAILY 30 days djftsmxhtnt-cvqtcsqvm-xuxdvhww 200-62.5-25 mcg (Trelegy Ellipta) 1 inh inhalation DAILY 30 days hydrocortisone 0.5% appl topical ibuprofen 600 mg PO Q6H PRN 14 days ipratropium-albuterol 0.5 mg-3 mg(2.5 mg base)/3 mL mL inhalation lidocaine 5% (Lidoderm) 1 patch topical DAILY 30 days loratadine 10 mg PO DAILY 30 days magnesium oxide 400 mg PO DAILY 30 days metoprolol tartrate 25 mg PO BID montelukast 10 mg PO DAILY naproxen 750 mg PO DAILY PRN nebulizers As directed omeprazole 40 mg PO BID onabotulinumtoxinA (Botox) 200 units IM ONCE 12 weeks pregabalin (Lyrica) 300 mg PO BID 30 days ubrogepant 100 mg orally 1 tab at onset of migraine, may repeat in 2 hrs (max 200mg/day) PRN; 32 days umeclidinium 62.5 mcg/actuation (Incruse Ellipta) 1 inh inhalation DAILY 30 days verapamil ER 240 mg PO DAILY 30 days HPI Comments Details: 48 y/o female comes for treatment of migraines with botox How many migraine days prior to botox- 20-25/month How long do the migraines last- 1-2 days Intensity of migraine8/10 ER visits related to migraine multiple Effectiveness of botox from last two treatment(s) How many migraine days since receiving treatment: 3-4 /month Change? in intensity of migraine?decreased Change in frequency of migraine?decreased Change in use of acute medication for migraine?decreased Change in quality of life? good ER visits related to migraine? none Have at least three months elapsed since last treatment (Last botox date - frequency of injections) 11/30 ??? Most frequent reported adverse reactions following injection of botox for chronic 7y7 include neck pain (9%), headache(5%), eyelid ptosis(4%), migraine(4%), muscular weakness(4%), musculoskeletal stiffness(4%), bronchitis(3%), injection site pain (3%), musculoskeletal pain(3%), myalgia(3%), facial paresis(2%), HTN(2%) and muscle spasms(2%) were discussed in detail. ??? Botulinum toxin typeA 200units Lot no [id number] exiration Jul 2026 was diluted with 4 cc of normal saline . ??? Muscles injected- ??? Frontalis 4 sites ??? Procerus 1 site ??? Software Project Manager- 2 sites ??? Temporalis- 8 sites ??? Occipitalis- 6 sites ??? Cervical paraspinals- 4 sites ??? Trapezius- 6 sites- 10units each ??? 5 units each in 31 site ??? Total use- 185units ??? Discarded-15units [facility] Medical History (Updated 03/31/24 @ 15:03 by Sri Fletcher MD) Chronic migraine without aura, intractable, without status migrainosus JEWEL (obstructive sleep apnea) Chronic migraine without aura Hypergammaglobulinemia Thrombocytosis Long-term use of Plaquenil COVID-19 Carpal tunnel syndrome on both sides Cataract Pre-op chest exam JEWEL on CPAP Chronic restrictive lung disease LAVONNE positive Bronchitis, asthmatic Dyspnea Chest pain Surgical History H/O elbow surgery Hx of cataract extraction History of carpal tunnel release of both wrists Hx of section Hx of tubal ligation Hx of cholecystectomy H/O: hysterectomy Family History Mother Diabetes HTN (hypertension) CVD (cardiovascular disease) Ovarian cancer Father HTN (hypertension) CVD (cardiovascular disease) Maternal Grandfather Stomach cancer Maternal Uncle Lung cancer Mother Rheumatoid arthritis Social History Household Members: Children Alcohol intake: never Patient Tobacco Use Status: Never used Tobacco Current occupational status: disabled Female Reproductive History Menstrual Age of Menarche: 13 Physical Exam Vital Signs: Last Vital Signs Pulse 101 H 03/31/24 14:40 Resp 16 03/31/24 14:40 BP 136/74 03/31/24 14:40 Pulse Ox 97 03/31/24 14:40 Oxygen Delivery Method Room Air 03/31/24 14:40 BMI result Body Mass Index 27.4 Const General: cooperative and no acute distress Orientation/consciousness: patient oriented x3 HEENT Head: Yes normocephalic Back/Spine/Pelvis Other: Left paraspinal tenderness. Neuro General: patient oriented x3 and CN's II-XI intact bilaterally Cognition (Neuro): normal cognition Gait exam (Neuro): Antalgic gait present Motor exam (neuro): 5/5 motor strength present throughout Office Procedures Botulinum toxin Injection 81137 - Migraine Procedure code (CPT) selection complete Office Meds onabotulinumtoxinA 200 unit solution for injection Performing Provider: Sri Fletcher MD Performing Location: [facility] Administered by: Sri Fletcher MD on 03/31/24 15:06 Dose Route Admin Location Dispensed Lot Number Expiration Date [facility] Glass Science Engineer 185 unit subcut 200 units [id number] 07/09/26 1122-2623-16 ALLERGAN/BOTOX Comments: see HPI Assessment & Plan Assessment & Plan (1) Chronic migraine without aura: Code(s): G43.709 - Chronic migraine without aura, not intractable, without status migrainosus Category: Medical (2) Migraine with aura, intractable, without status migrainosus: Code(s): G43.119 - Migraine with aura, intractable, without status migrainosus Category: Medical (3) Chronic migraine without aura, intractable, without status migrainosus: Code(s): G43.719 - Chronic migraine without aura, intractable, without status migrainosus Category: Medical Plan Patient tolerated the procedure well she will call with any side effects Orders: Orders AMB Botulinum toxin Injection - Patient Supplied Today G43.719 - Chronic migraine without aura, intractable, without status migrainosus Medications: New onabotulinumtoxinA 200 units subcut ONCE 1 ea 0RF [id number] G43.719 - Chronic migraine without aura, intractable, without status migrainosus Coding Level of Care Code Est Pt Level 1 (53754) Diagnoses Chronic migraine without aura G43.709 Migraine with aura, intractable, without status migrainosus G43.119 Chronic migraine without aura, intractable, without status migrainosus G43.719 CPT Codes Botox Injection - Botox 3: 06846 - Migraine ([id number])
[2024-03-31 14:40] VITALS: BP 136/74; PULSE 101; RESP 16; O2SAT 97; BMI 27.4
== END 2024-03-31 15:03 | disposition home or self-care (01) ==
PROVIDERS: PCP Internal Medicine; Visit Provider Psychiatry & Neurology Neurology
DX: G43.E19 Chronic migraine with aura, intractable, without status migrainosus (principal)
CPT/HCPCS: 64615

== ENCOUNTER → 2024-03-31 14:35 | Outpatient (BNVA) | payer OTHER, SELFPAY | PROVIDERS: PCP Internal Medicine; Visit Provider Psychiatry & Neurology Neurology | DX: G43.E19 Chronic migraine with aura, intractable, without status migrainosus (principal) | CPT/HCPCS: 64615; 99211; J0585 ==

== ENCOUNTER 2024-06-13 14:32 | Outpatient (AMB) | payer OTHER, SELFPAY ==
[2024-06-13 14:37] VITALS: BP 118/78; PULSE 73; O2SAT 100
--- NOTE | 2024-06-13 14:37 | A.OFFVIS_ITS ---
Vital Signs 06/13/24 14:37 BP 118/78 Blood Pressure Location Lt brachial Position Sitting Pulse 73 Pulse Source Pulse Oximeter Pulse Oximetry (%) 100 Oxygen Delivery Method Room Air Intake Visit Reasons: asthma Allergies gabapentin Allergy (Severe, Verified 06/13/24 14:41) Nausea and Vomiting shrimp Allergy (Severe, Verified 06/13/24 14:41) Nausea and Vomiting Medication List - Last Reconciled 06/13/24 by Claudia Mittal, ALEXANDRA acetaminophen 500 mg PO Q6H PRN albuterol sulfate 90 mcg/actuation 2 puffs inhalation Q4H PRN 90 days azithromycin 500 mg PO DAILY 5 days baclofen 1 tab bid and 2 tabs qhs orally bedtime; 30 days benzonatate 200 mg PO BID PRN 30 days cholecalciferol (vitamin D3) 50 mcg PO DAILY 30 days mnpodvspusy-vpmnqhrkq-bvxubudc 200-62.5-25 mcg (Trelegy Ellipta) 1 inh inhalation DAILY 30 days ibuprofen 600 mg PO Q6H PRN 14 days ipratropium-albuterol 0.5 mg-3 mg(2.5 mg base)/3 mL mL inhalation lidocaine 5% (Lidoderm) 1 patch topical DAILY 30 days loratadine 10 mg PO DAILY 30 days magnesium oxide 400 mg PO DAILY 30 days metoprolol tartrate 25 mg PO BID montelukast 10 mg PO DAILY naproxen 750 mg PO DAILY PRN nebulizers As directed omeprazole 40 mg PO BID onabotulinumtoxinA (Botox) 200 units IM ONCE 12 weeks pregabalin (Lyrica) 300 mg PO BID 30 days ubrogepant 100 mg orally 1 tab at onset of migraine, may repeat in 2 hrs (max 200mg/day) PRN; 32 days verapamil ER 240 mg PO DAILY 30 days HPI Comments Details: The patient is a 48-year-old woman with a known history of obstructive sleep apnea who apparently was in the usual state health until September of 2019. During that time she became briefly ill with respiratory illness. The patient is very symptomatic with significant coughing shortness of breath and also was noted to be wheezing at that time. Since then the patient has had ongoing symptoms which vary from shortness breath and cough. Her cough tends to be nonproductive in nature. At times he had been croupy. Due to the significant coughing she has not been able to tolerate her CPAP therapy. Prior to this illness she was using her CPAP without any difficulties. Subsequently after that she was tested for COVID and her swab was negative. Although she is pretty sure that she had COVID when she was significantly ill back in September. Now she complains of chest discomfort the sometimes radiates to her back along with shortness of breath and she has been noted to be significantly tachycardic. She had been evaluated at [facility] in her blood work has been relatively unremarkable. She had a chest x-ray back in February which was read as no acute disease and also personally reviewed and agreed. 06/13/2024 the patient is here for a pulmonary follow-up visit. Overall the patient continues to have significant weight loss after her bariatric surgery. She has not been using her CPAP at this time. Denies any significant daytime drowsiness, EPWORTH is 7/24. She had been dealing with a significant dry cough. Likely Pertussis. She was evaluated ans treated by her PCP. Now she is feeling better. She had a CXR back in the spring 2023 which was normal, no need for additional CXR at this time, unless her symptoms reoccur. She continue to brandon her respiratory therapy as prescribed. [facility] Medical History (Updated 03/31/24 @ 15:03 by Sri Fletcher MD) Chronic migraine without aura, intractable, without status migrainosus JEWEL (obstructive sleep apnea) Chronic migraine without aura Hypergammaglobulinemia Thrombocytosis Long-term use of Plaquenil COVID-19 Carpal tunnel syndrome on both sides Cataract Pre-op chest exam JEWEL on CPAP Chronic restrictive lung disease LAVONNE positive Bronchitis, asthmatic Dyspnea Chest pain Surgical History H/O elbow surgery Hx of cataract extraction History of carpal tunnel release of both wrists Hx of section Hx of tubal ligation Hx of cholecystectomy H/O: hysterectomy Family History Mother Diabetes HTN (hypertension) CVD (cardiovascular disease) Ovarian cancer Father HTN (hypertension) CVD (cardiovascular disease) Maternal Grandfather Stomach cancer Maternal Uncle Lung cancer Mother Rheumatoid arthritis Social History Household Members: Children Alcohol intake: never Patient Tobacco Use Status: Never used Tobacco Current occupational status: disabled Female Reproductive History Menstrual Age of Menarche: 13 Review of Systems Const Denies daytime sleepiness, Denies headache(s), Denies night sweats and Reports weight loss Eyes Denies change in vision ENT Denies change in voice, Denies headache(s), Denies lip swelling, Denies mouth pain, Reports nasal congestion, Reports nasal discharge, Reports neck pain and Denies tongue swelling Card Denies chest pain and Denies dyspnea Resp Denies change in phlegm color, Denies chest congestion, Reports cough, Denies he moptysis and Denies dyspnea GI Reports dyspepsia and Reports heartburn Musc Reports back pain, Reports myalgias, Reports arthralgias and Reports neck pain Neuro Denies Neuro-related abnormal movements and Denies headache(s) Psych Denies no additional complaints Arthur/Lymph Denies easy bleeding and Denies lymphadenopathy Aller/Immun Denies lip swelling and Denies tongue swelling Physical Exam Vital Signs: Last Vital Signs Pulse 73 06/13/24 14:37 BP 118/78 06/13/24 14:37 Pulse Ox 100 06/13/24 14:37 Oxygen Delivery Method Room Air 06/13/24 14:37 Const General: cooperative and no acute distress Nutritional Appearance: well nourished Orientation/consciousness: patient oriented x3 HEENT Head: Yes normocephalic Neck Neck: Yes normal visual inspection, Yes full ROM and Yes no lymphadenopathy Chest Chest palpation & inspection: tenderness Resp Effort & Inspection: normal respiratory effort and able to speak in complete sentences Auscultation: clear to auscultation bilaterally Cardio Rate: regular rate Rhythm: regular rhythm Heart sounds: S1 normal heart sound present and S2 normal heart sound present GI Palpation (GI): Soft to palpation Auscultation: normal bowel sounds Skin General skin exam: no rashes or lesions noted Neuro Other: Mild posterior cervical tightness. General: patient oriented x3, gait normal and CN's II-XI intact bilaterally Cognition (Neuro): normal cognition Motor exam (neuro): 5/5 motor strength present throughout Psych Appearance: grossly normal Mental Status: mental status grossly normal Speech and movement: Normal speech and movement present Affect: normal affect Attitude: cooperative Thought process: Normal thought process present Thought content: Normal thought content present Insight: Good insight present (Psych) Judgement: Good judgement present (Psych) Office Procedures Flu Questionnaire Does the patient have a severe egg allergy?: No Does the patient have severe life threatening allergies?: No Does the patient have a fever or illness today?: No Has the patient ever had Guillain-Marietta Syndrome?: No Has the patient ever had any past reaction to a flu shot?: No Immunizations Fluarix Triv [id number] (PF) 45 mcg (15 mcg x 3)/0.5 mL IM syringe Performing Provider: Asuten Carranza MD Performing Location: [facility] Administered by: Claudia Mittal LPN on 06/13/24 15:10 Dose Route Admin Location Dispensed Lot Number Expiration Date [employer]DC Fire Equipment Operator 0.5 mL IM Left Deltoid 0.5 mL [id number] 02/05/25 98665-247-05 [employer] VIS Given Date VIS Provided VIS Publication Date 06/13/24 Single Vaccine 21 Eligibility Eligibility Date Funding Source Not [facility] Eligible 06/13/24 Private Assessment & Plan Assessment & Plan (1) Chronic restrictive lung disease: Code(s): J98.4 - Other disorders of lung Category: Medical (2) JEWEL on CPAP: Comment: No longer using CPAP Code(s): G47.33 - Obstructive sleep apnea (adult) (pediatric); Z99.89 - Dependence on other enabling machines and devices Category: Medical (3) Bronchitis, asthmatic: Code(s): J45.909 - Unspecified asthma, uncomplicated Category: Medical Qualifiers: Asthma complication type: uncomplicated Asthma persistence: intermitt ent Asthma severity: mild Qualified Code(s): J45.20 - Mild intermittent asthma, uncomplicated Plan continue Trelegy Continue short-acting beta agonists holding CPAP therapy, clinically better. consider repeat her PSG follow-up in 12 month Orders: Orders Influenza [id number] Immunization Today J98.4 - Other disorders of lung Coding Level of Care Code Est Pt Level 4 (40404) Diagnoses Chronic restrictive lung disease J98.4 JEWEL on CPAP G47.33; Z99.89 Mild intermittent asthmatic bronchitis without complication J45.20 Asthma complication type: uncomplicated Asthma persistence: intermittent Asthma severity: mild Time Spent (min) 16
== END 2024-06-13 15:10 | disposition home or self-care (01) ==
LOC: HO.HPS 14:33
PROVIDERS: PCP Internal Medicine; Visit Provider Hospitalist
DX: J45.20 Mild intermittent asthma, uncomplicated (principal); J98.4 Other disorders of lung; G47.33 Obstructive sleep apnea (adult) (pediatric); Z99.89 Dependence on other enabling machines and devices
CPT/HCPCS: 99214

== ENCOUNTER → 2024-06-13 14:32 | Outpatient (BNVA) | payer OTHER, SELFPAY | PROVIDERS: PCP Internal Medicine; Visit Provider Hospitalist | DX: J45.20 Mild intermittent asthma, uncomplicated (principal); J98.4 Other disorders of lung; G47.33 Obstructive sleep apnea (adult) (pediatric); Z23 Encounter for immunization; Z99.89 Dependence on other enabling machines and devices | CPT/HCPCS: 90471; 90656; 99212 ==

== ENCOUNTER 2024-07-21 15:00 | Outpatient (AMB) | payer OTHER, SELFPAY ==
--- NOTE | 2024-07-21 15:16 | MHC.OFFVIS ---
Vital Signs 07/21/24 15:16 Height 5 ft 6 in Intake Visit Reasons: Botox Intake Note: Patient presents for botox injection. Allergies gabapentin Allergy (Severe, Verified 06/13/24 14:41) Nausea and Vomiting shrimp Allergy (Severe, Verified 06/13/24 14:41) Nausea and Vomiting Medication List - Last Reconciled 07/21/24 by Sri Fletcher MD acetaminophen 500 mg PO Q6H PRN albuterol sulfate 90 mcg/actuation 2 puffs inhalation Q4H PRN 90 days azithromycin 500 mg PO DAILY 5 days baclofen 1 tab bid and 2 tabs qhs orally bedtime; 30 days benzonatate 200 mg PO BID PRN 30 days cholecalciferol (vitamin D3) 50 mcg PO DAILY 30 days stjhgoctxoy-vhpmvbqsp-xdbhiguw 200-62.5-25 mcg (Trelegy Ellipta) 1 inh inhalation DAILY 30 days ibuprofen 600 mg PO Q6H PRN 14 days ipratropium-albuterol 0.5 mg-3 mg(2.5 mg base)/3 mL mL inhalation lidocaine 5% (Lidoderm) 1 patch topical DAILY 30 days loratadine 10 mg PO DAILY 30 days magnesium oxide 400 mg PO DAILY 30 days metoprolol tartrate 25 mg PO BID montelukast 10 mg PO DAILY naproxen 750 mg PO DAILY PRN nebulizers As directed omeprazole 40 mg PO BID onabotulinumtoxinA (Botox) 200 units IM ONCE 12 weeks pregabalin (Lyrica) 300 mg PO BID 30 days ubrogepant 100 mg orally 1 tab at onset of migraine, may repeat in 2 hrs (max 200mg/day) PRN; 32 days verapamil ER 240 mg PO DAILY 30 days HPI Comments Details: 48 y/o female comes for treatment of migraines with botox How many migraine days prior to botox- 20-25/month How long do the migraines last- 1-2 days Intensity of migraine8/10 ER visits related to migraine multiple Effectiveness of botox from last two treatment(s) How many migraine days since receiving treatment: 3-4 /month Change? in intensity of migraine?decreased Change in frequency of migraine?decreased Change in use of acute medication for migraine?decreased Change in quality of life? good ER visits related to migraine? none Have at least three months elapsed since last treatment (Last botox date - frequency of injections) yes ??? Most frequent reported adverse reactions following injection of botox for chronic 7y7 include neck pain (9%), headache(5%), eyelid ptosis(4%), migraine(4%), muscular weakness(4%), musculoskeletal stiffness(4%), bronchitis(3%), injection site pain (3%), musculoskeletal pain(3%), myalgia(3%), facial paresis(2%), HTN(2%) and muscle spasms(2%) were discussed in detail. ??? Botulinum toxin typeA 200units Lot no [id number] expiration Apr 2026 was diluted with 4 cc of normal saline . ??? Muscles injected- ??? Frontalis 4 sites ??? Procerus 1 site ??? Accordion Maker- 2 sites ??? Temporalis- 8 sites ??? Occipitalis- 6 sites ??? Cervical paraspinals- 4 sites ??? Trapezius- 6 sites- 10units each ??? 5 units each in 31 site ??? Total use- 185units ??? Discarded-15units [facility] Medical History Chronic migraine without aura, intractable, without status migrainosus JEWEL (obstructive sleep apnea) Chronic migraine without aura Hypergammaglobulinemia Thrombocytosis Long-term use of Plaquenil COVID-19 Carpal tunnel syndrome on both sides Cataract Pre-op chest exam JEWEL on CPAP Chronic restrictive lung disease LAVONNE positive Bronchitis, asthmatic Dyspnea Chest pain Surgical History H/O elbow surgery Hx of cataract extraction History of carpal tunnel release of both wrists Hx of section Hx of tubal ligation Hx of cholecystectomy H/O: hysterectomy Family History Mother Diabetes HTN (hypertension) CVD (cardiovascular disease) Ovarian cancer Father HTN (hypertension) CVD (cardiovascular disease) Maternal Grandfather Stomach cancer Maternal Uncle Lung cancer Mother Rheumatoid arthritis Social History Household Members: Children Alcohol intake: never Patient Tobacco Use Status: Never used Tobacco Current occupational status: disabled Female Reproductive History Menstrual Age of Menarche: 13 Physical Exam Const General: cooperative and no acute distress Orientation/consciousness: patient oriented x3 HEENT Head: Yes normocephalic Back/Spine/Pelvis Other: Left paraspinal tenderness. Neuro General: patient oriented x3 and CN's II-XI intact bilaterally Cognition (Neuro): normal cognition Gait exam (Neuro): Antalgic gait present Motor exam (neuro): 5/5 motor strength present throughout Office Procedures Botulinum toxin Injection 16830 - Migraine Procedure code (CPT) selection complete Office Meds onabotulinumtoxinA 200 unit solution for injection Performing Provider: Sri Fletcher MD Performing Location: [facility] Administered by: Sri Fletcher MD on 07/21/24 15:34 Dose Route Admin Location Dispensed Lot Number Expiration Date [facility] At Risk Specialist 185 unit subcut 200 units [id number] 04/09/26 8966-6380-97 ALLERGAN/BOTOX Comments: see HPI Assessment & Plan Assessment & Plan (1) Chronic migraine without aura: Code(s): G43.709 - Chronic migraine without aura, not intractable, without status migrainosus Category: Medical Qualifiers: Status migrainosus presence: without status migrainosus Intractability: intractable Qualified Code(s): G43.719 - Chronic migraine without aura, intractable, without status migrainosus (2) Migraine with aura, intractable, without status migrainosus: Code(s): G43.119 - Migraine with aura, intractable, without status migrainosus Category: Medical (3) Chronic migraine without aura, intractable, without status migrainosus: Code(s): G43.719 - Chronic migraine without aura, intractable, without status migrainosus Category: Medical Plan Patient tolerated the procedure well she will call with any side effects Orders: Orders AMB Botulinum toxin Injection Today G43.719 - Chronic migraine without aura, intractable, without status migrainosus Medications: New onabotulinumtoxinA 200 units subcut ONCE 1 ea 0RF migraine G43.719 - Chronic migraine without aura, intractable, without status migrainosus Coding Level of Care Code Est Pt Level 1 (71156) Diagnoses Intractable chronic migraine without aura and without status migrainosus G43.719 Status migrainosus presence: without status migrainosus Intractability: intractable Migraine with aura, intractable, without status migrainosus G43.119 Chronic migraine without aura, intractable, without status migrainosus G43.719 CPT Codes Botox Injection - Botox 3: 35449 - Migraine ([id number])
== END 2024-07-21 15:29 | disposition home or self-care (01) ==
PROVIDERS: PCP Internal Medicine; Visit Provider Psychiatry & Neurology Neurology
DX: G43.E19 Chronic migraine with aura, intractable, without status migrainosus (principal)
CPT/HCPCS: 64615

== ENCOUNTER → 2024-07-21 15:00 | Outpatient (BNVA) | payer OTHER, SELFPAY | PROVIDERS: PCP Internal Medicine; Visit Provider Psychiatry & Neurology Neurology | DX: G43.719 Chronic migraine without aura, intractable, without status migrainosus (principal); G43.119 Migraine with aura, intractable, without status migrainosus | CPT/HCPCS: 64615; 99211; J0585 ==

== ENCOUNTER 2024-10-24 14:41 | Outpatient (AMB) | payer OTHER, SELFPAY ==
--- NOTE | 2024-10-24 14:50 | A.OFFVIS_ITS ---
Vital Signs 10/24/24 14:51 Height 56 ft Weight 156 lb BMI 0.2 BP 122/78 Blood Pressure Location Rt brachial Position Sitting Pulse 71 Pulse Source Pulse Oximeter Pulse Oximetry (%) 97 Oxygen Delivery Method Room Air Intake Visit Reasons: Botox Intake Note: Patient presents for botox injection Practice supplied Allergies gabapentin Allergy (Severe, Verified 10/24/24 14:52) Nausea and Vomiting shrimp Allergy (Severe, Verified 10/24/24 14:52) Nausea and Vomiting Medication List - Last Reconciled 10/24/24 by Sri Fletcher MD acetaminophen 500 mg PO Q6H PRN albuterol sulfate 90 mcg/actuation 2 puffs inhalation Q4H PRN 90 days azithromycin 500 mg PO DAILY 5 days baclofen 1 tab bid and 2 tabs qhs orally bedtime; 30 days benzonatate 200 mg PO BID PRN 30 days cholecalciferol (vitamin D3) 50 mcg PO DAILY 30 days dabdwndtwfh-bpfezseiz-afeifqlj 200-62.5-25 mcg (Trelegy Ellipta) 1 inh inhalation DAILY 30 days ibuprofen 600 mg PO Q6H PRN 14 days ipratropium-albuterol 0.5 mg-3 mg(2.5 mg base)/3 mL mL inhalation lidocaine 5% (Lidoderm) 1 patch topical DAILY 30 days loratadine 10 mg PO DAILY 30 days magnesium oxide 400 mg PO DAILY 30 days metoprolol tartrate 25 mg PO BID montelukast 10 mg PO DAILY naproxen 750 mg PO DAILY PRN nebulizers As directed omeprazole 40 mg PO BID onabotulinumtoxinA (Botox) 200 units IM ONCE 12 weeks pregabalin (Lyrica) 300 mg PO BID 30 days ubrogepant 100 mg orally 1 tab at onset of migraine, may repeat in 2 hrs (max 200mg/day) PRN; 32 days verapamil ER 240 mg PO DAILY 30 days HPI Comments Details: 49 y/o female comes for treatment of migraines with botox How many migraine days prior to botox- 20-25/month How long do the migraines last- 1-2 days Intensity of migraine8/10 ER visits related to migraine multiple Effectiveness of botox from last two treatment(s) How many migraine days since receiving treatment: 3-4 /month Change? in intensity of migraine?decreased Change in frequency of migraine?decreased Change in use of acute medication for migraine?decreased Change in quality of life? good ER visits related to migraine? none Have at least three months elapsed since last treatment (Last botox date - frequency of injections) yes ??? Most frequent reported adverse reactions following injection of botox for chronic 7y7 include neck pain (9%), headache(5%), eyelid ptosis(4%), migraine(4%), muscular weakness(4%), musculoskeletal stiffness(4%), bronchitis(3%), injection site pain (3%), musculoskeletal pain(3%), myalgia(3%), facial paresis(2%), HTN(2%) and muscle spasms(2%) were discussed in detail. ??? Botulinum toxin typeA 200units Lot no [id number] expiration November 2026 was diluted with 4 cc of normal saline . ??? Muscles injected- ??? Frontalis 4 sites ??? Procerus 1 site ??? Chain Forming Machine Operator- 2 sites ??? Temporalis- 8 sites ??? Occipitalis- 6 sites ??? Cervical paraspinals- 4 sites ??? Trapezius- 6 sites- 10units each ??? 5 units each in 31 site ??? Total use- 185units ??? Discarded-15units [facility] Medical History Chronic migraine without aura, intractable, without status migrainosus JEWEL (obstructive sleep apnea) Chronic migraine without aura Hypergammaglobulinemia Thrombocytosis Long-term use of Plaquenil COVID-19 Carpal tunnel syndrome on both sides Cataract Pre-op chest exam JEWEL on CPAP Chronic restrictive lung disease LAVONNE positive Bronchitis, asthmatic Dyspnea Chest pain Surgical History H/O elbow surgery Hx of cataract extraction History of carpal tunnel release of both wrists Hx of section Hx of tubal ligation Hx of cholecystectomy H/O: hysterectomy Family History Mother Diabetes HTN (hypertension) CVD (cardiovascular disease) Ovarian cancer Father HTN (hypertension) CVD (cardiovascular disease) Maternal Grandfather Stomach cancer Maternal Uncle Lung cancer Mother Rheumatoid arthritis Social History Household Members: Children Alcohol intake: never Patient Tobacco Use Status: Never used Tobacco Current occupational status: disabled Female Reproductive History Menstrual Age of Menarche: 13 Physical Exam Vital Signs: Last Vital Signs Pulse 71 10/24/24 14:51 BP 122/78 10/24/24 14:51 Pulse Ox 97 10/24/24 14:51 Oxygen Delivery Method Room Air 10/24/24 14:51 BMI result Body Mass Index 0.2 Const General: cooperative and no acute distress Orientation/consciousness: patient oriented x3 HEENT Head: Yes normocephalic Back/Spine/Pelvis Other: Left paraspinal tenderness. Neuro General: patient oriented x3 and CN's II-XI intact bilaterally Cognition (Neuro): normal cognition Gait exam (Neuro): Antalgic gait present Motor exam (neuro): 5/5 motor strength present throughout Office Procedures Botulinum toxin Injection 33961 - Migraine Procedure code (CPT) selection complete Office Meds onabotulinumtoxinA 200 unit solution for injection Performing Provider: Sri Fletcher MD Performing Location: [facility] Administered by: Sri Fletcher MD on 10/24/24 15:27 Dose Route Admin Location Dispensed Lot Number Expiration Date [facility] Hearing Examiner 185 unit subcut 200 units [id number] ALLERGAN/BOTOX Comments: see hpi Assessment & Plan Assessment & Plan (1) Chronic migraine without aura, intractable, without status migrainosus: Code(s): G43.719 - Chronic migraine without aura, intractable, without status migrainosus Category: Medical Plan Patient tolerated the procedure well she will call with any side effects Orders: Orders AMB Botulinum toxin Injection Today G43.719 - Chronic migraine without aura, intractable, without status migrainosus Medications: New onabotulinumtoxinA 200 units subcut ONCE 1 ea 0RF migraines G43.719 - Chronic migraine without aura, intractable, without status migrainosus Coding Level of Care Code Est Pt Level 1 (22748) Diagnoses Chronic migraine without aura, intractable, without status migrainosus G43.719 CPT Codes Botox Injection - Botox 3: 88940 - Migraine ([id number])
[2024-10-24 14:51] VITALS: BP 122/78; PULSE 71; O2SAT 97
== END 2024-10-24 15:19 | disposition home or self-care (01) ==
LOC: HO.HSMS 14:42
PROVIDERS: PCP Internal Medicine; Visit Provider Psychiatry & Neurology Neurology
DX: G43.719 Chronic migraine without aura, intractable, without status migrainosus (principal)
CPT/HCPCS: 64615

== ENCOUNTER → 2024-10-24 14:41 | Outpatient (BNVA) | payer OTHER, SELFPAY | PROVIDERS: PCP Internal Medicine; Visit Provider Psychiatry & Neurology Neurology | DX: G43.719 Chronic migraine without aura, intractable, without status migrainosus (principal) | CPT/HCPCS: 64615; 99211; J0585 ==

== ENCOUNTER 2024-11-20 14:35 | Outpatient (AMB) | payer OTHER, SELFPAY ==
[2024-11-20 14:37] VITALS: BP 120/78; PULSE 81; O2SAT 100; BMI 25.7
--- NOTE | 2024-11-20 14:37 | A.OFFVIS_ITS ---
Vital Signs 11/20/24 14:37 Height 5 ft 6 in Weight 159 lb BMI 25.7 BP 120/78 Blood Pressure Location Lt brachial Position Sitting Pulse 81 Pulse Source Pulse Oximeter Pulse Oximetry (%) 100 Oxygen Delivery Method Room Air Intake Visit Reasons: 7 month F/U Intake Note: Patient presents 7 month follow up for migraines. Regional Clinical Director Required: Yes Regional Clinical Director Services: Regional Clinical Director Offered & Declined Accompanied by: Self / Same As Patient Allergies gabapentin Allergy (Severe, Verified 11/20/24 14:39) Nausea and Vomiting shrimp Allergy (Severe, Verified 11/20/24 14:39) Nausea and Vomiting Medication List - Last Reconciled 11/20/24 by EMERALD Randall acetaminophen 500 mg PO Q6H PRN albuterol sulfate 90 mcg/actuation 2 puffs inhalation Q4H PRN 90 days azithromycin 500 mg PO DAILY 5 days baclofen 1 tab bid and 2 tabs qhs orally bedtime; 30 days benzonatate 200 mg PO BID PRN 30 days cholecalciferol (vitamin D3) 50 mcg PO DAILY 30 days jbsgyafhduk-ibbneakdb-lkcearoa 200-62.5-25 mcg (Trelegy Ellipta) 1 inh inhalation DAILY 30 days ibuprofen 600 mg PO Q6H PRN 14 days ipratropium-albuterol 0.5 mg-3 mg(2.5 mg base)/3 mL mL inhalation lidocaine 5% (Lidoderm) 1 patch topical DAILY 30 days loratadine 10 mg PO DAILY 30 days magnesium oxide 400 mg PO DAILY 30 days metoprolol tartrate 25 mg PO BID montelukast 10 mg PO DAILY naproxen 750 mg PO DAILY PRN nebulizers As directed omeprazole 40 mg PO BID onabotulinumtoxinA (Botox) 200 units IM ONCE 12 weeks pregabalin (Lyrica) 300 mg PO BID 30 days ubrogepant 100 mg orally 1 tab at onset of migraine, may repeat in 2 hrs (max 200mg/day) PRN; 32 days verapamil ER 240 mg PO DAILY 30 days HPI Comments Details: 48-yr-old female presents for f/u visit. Pt denies any significant interval medical changes. She states during her last Botox session, about a month ago, she had pain during the left trap injection which was felt to be due to her left trap being overly tense and tight. Since, the pain is better, however she will still feel focal left trap discomfort especially if she raises the left arm overhead. She has run out of her as needed baclofen. Migraines are well controlled on Botox and Verapamil. Right occipital headache occurs at times, not as severe, but bothersome. Her RLS are overall stable. When she is more active, she may have more restlessness- or feeling like legs are falling asleep or creepy crawling sensation. Patient never had follow-up home sleep study done, states that she is not snoring, and that pulmonology believes that her sleep apnea has probably resolved with her significant weight loss. Baseline migraine headache characteristics: Migraine: Usually mod-severe right sided, can be left sided, pressure/throbbing pain a/w photophobia, phonophobia, tiredness, cognitive difficulties. Right occipital headache: a severe right sided neck to occipital region, shooting, pulsating radiating pain. This may start in the neck or the upper occipital region. A/w photophobia and allodynia. [facility] Medical History Chronic migraine without aura, intractable, without status migrainosus JEWEL (obstructive sleep apnea) Chronic migraine without aura Hypergammaglobulinemia Thrombocytosis Long-term use of Plaquenil COVID-19 Carpal tunnel syndrome on both sides Cataract Pre-op chest exam JEWEL on CPAP Chronic restrictive lung disease LAVONNE positive Bronchitis, asthmatic Dyspnea Chest pain Surgical History H/O elbow surgery Hx of cataract extraction History of carpal tunnel release of both wrists Hx of section Hx of tubal ligation Hx of cholecystectomy H/O: hysterectomy Family History Mother Diabetes HTN (hypertension) CVD (cardiovascular disease) Ovarian cancer Father HTN (hypertension) CVD (cardiovascular disease) Maternal Grandfather Stomach cancer Maternal Uncle Lung cancer Mother Rheumatoid arthritis Social History Household Members: Children Alcohol intake: never Patient Tobacco Use Status: Never used Tobacco Current occupational status: disabled Female Reproductive History Menstrual Age of Menarche: 13 Physical Exam Vital Signs: Last Vital Signs Pulse 81 11/20/24 14:37 BP 120/78 11/20/24 14:37 Pulse Ox 100 11/20/24 14:37 Oxygen Delivery Method Room Air 11/20/24 14:37 BMI result Body Mass Index 25.7 Const General: cooperative and no acute distress Orientation/consciousness: patient oriented x3 HEENT Head: Yes normocephalic Back/Spine/Pelvis Other: Left paraspinal tenderness. Neuro General: patient oriented x3 and CN's II-XI intact bilaterally Cognition (Neuro): normal cognition Gait exam (Neuro): Normal gait present Motor exam (neuro): 5/5 motor strength present throughout Assessment & Plan Assessment & Plan (1) Chronic migraine without aura, intractable, without status migrainosus: Code(s): G43.719 - Chronic migraine without aura, intractable, without status migrainosus Category: Medical (2) Cervicalgia of ynozrxit-lncxmky-aihnz region: Code(s): M54.2 - Cervicalgia Category: Medical (3) Restless leg syndrome: Code(s): G25.81 - Restless legs syndrome Category: Medical (4) JEWEL (obstructive sleep apnea): Code(s): G47.33 - Obstructive sleep apnea (adult) (pediatric) Category: Medical (5) Chronic migraine without aura: Code(s): G43.709 - Chronic migraine without aura, not intractable, without status migrainosus Category: Medical Qualifiers: Status migrainosus presence: without status migrainosus Intractability: intractable Qualified Code(s): G43.719 - Chronic migraine without aura, intractable, without status migrainosus Plan For right occipital neuralgia s/s, left upper trap discomfort, cervicalgia, and history of left facial pain: Resume baclofen 10 mg 1 to 2 times a day and 20 mg at bedtime p.r.n. Continue pregabalin 300 mg twice a day PT eval and treat Patient is open to trying acupuncture-order written as well. Future considerations: Referral to pain management for evaluation for possible nerve block and trigger point injections. ? For chronic migraine: Continue Botox. Continue Verapamil SR 240 mg bid. Continue prn Ubrelvy. Previous acute trials: Sumatriptan, Rizatriptan- ineffective. ? For RLS- Continue Lyrica, Baclofen, Magnesium Previous trials- Requip. ? For JEWEL- May continue to hold CPAP (previous setting: CPAP 4.4 cmH2O). Hold HST study. Follow-up in 6 months or sooner as needed Orders: Orders PT Evaluation and Treatment Today M54.2 - Cervicalgia Referrals Acupuncture Referral G43.719 - Chronic migraine without aura, intractable, without status migrainosus, M54.2 - Cervicalgia Medications: Changed From baclofen 1 tab bid and 2 tabs qhs orally bedtime; 30 days 120 tabs 3RF To baclofen 1 tab bid and 2 tabs qhs orally bedtime PRN; 30 days 120 tabs 3RF muscle spasm Refilled magnesium oxide 400 mg PO DAILY 30 days 30 tabs 11RF verapamil ER 240 mg PO DAILY 30 days 30 caps 6RF Coding Level of Care Code Est Pt Level 4 (20099) Complex EM visit Add On G2211 Diagnoses Chronic migraine without aura, intractable, without status migrainosus G43.719 Cervicalgia of silqzkan-yytizhx-evgjb region M54.2 Restless leg syndrome G25.81 JEWEL (obstructive sleep apnea) G47.33 Intractable chronic migraine without aura and without status migrainosus G43.719 Status migrainosus presence: without status migrainosus Intractability: intractable
--- OUTSIDE RECORDS SUMMARY | 2024-11-20 16:59 | XMS_ITS | Clinical Summary ---
Author Organization [employer] [facility] Address [address] [place] [address] Care Team Providers Care Career Education Teacher Name Role Phone Angelique Soni Primary Care Provider [phone] Allergies Active Allergy Reactions Criticality Noted Date Comments Gabapentin 05/20/2023 Shrimp 05/20/2023 Medications Medication Sig Dispensed Refills Start Date End Date Status pregabalin (Lyrica) 300 MG capsule Take 1 capsule (300 mg total) by mouth daily. 0 Active baclofen (LIORESAL) 20 MG tablet Take 1 tablet (20 mg total) by mouth 3 (three) times a day. 0 Active verapamil (CALAN-SR) 240 MG CR tablet Take 1 tablet (240 mg total) by mouth every night at bedtime. 0 Active Loratadine 10 MG CAPS Take by mouth. 0 Active vitamin D3 (cholecalciferol) 25 MCG (1000 UT) tablet Take 1 tablet (25 mcg total) by mouth daily. 0 Active Active Problems Problem Noted Date Diagnosed Date Vitamin D deficiency 10/11/2023 10/11/2023 Chronic migraine without aur a without status migrainosus, not intractable 03/10/2023 10/11/2023 Fibromyalgia 05/24/2020 10/11/2023 JEWEL (obstructive sleep apnea) 05/24/2020 Dyslipidemia 04/13/2014 10/11/2023 Overview: Last Assessment & Plan: I have asked her to update her lipid panel to make sure that her lipids are under better control than where they were in the summer. CTS (carpal tunnel syndrome) 01/04/201411/2023 Overview: emg- 2/10/15- - mild bilateral median mononeuropathies At the wrist. Left worse than right. - mild chronic denervation affecting the left abductor pollicis brevis. Uterine fibroid 11/30/2013 10/11/2023 Overview: Dub with dysmenorrhagia, dyspareunia. S/p tubal ligation-2008. 2 uterine fibroids, Hysteroscopy on 12/14/11- endometrial polyp ,biopsy- benign. Total abdominal hysterectomy ,excision of rt ovarian endometrioma, lysis of adhesions for uterine fibroids as well as endometriosis. Family History Medical History Relation Name Comments Ovarian cancer Mother Relation Name Status Comments Father Alive Mother Alive Social History Tobacco Use Types Packs/Day Years Used Date Smoking Tobacco: Never Smokeless Tobacco: Never Tobacco Cessation:Counseling Given: Not Answered Alcohol Use Standard Drinks/Week Comments Not Currently 0 (1 standard drink = 0.6 oz pur e alcohol) Sex and Gender Information Value Date Recorded Sex Assigned at Female 03/25/2023 9:05 AM EDT Gender Identity Not on file Sexual Orientation Not on file Job Start Date Occupation Industry Not on file Not on file Not on file Last Filed Vital Signs Vital Sign Reading Time Taken Comments Blood Pressure 127/70 11/04/2023 2:17 PM EDT Pulse 89 11/04/2023 2:17 PM EDT Temperature 37 ??C (98.6 ??F) 11/04/2023 2:17 PM EDT Respiratory Rate - - Oxygen Saturation 99% 11/04/2023 2:17 PM EDT Inhaled Oxygen Concentration - - Weight 77.1 kg (170 lb) 11/04/2023 2:17 PM EDT Height 167.6 cm (5' 6 ) 11/04/2023 2:17 PM EDT Body Mass Index 27.44 11/04/2023 2:17 PM EDT Plan of Treatment Health Maintenance Due Date Last Done Comments Hepatitis C Screening 1976 Depression Screening 1988 Preventative Health Evaluation 1994 Cervical Cancer Screening (Pap Smear) 1997 Colon Cancer Screening (Colonoscopy) 2021 COVID-19 Vaccine ( season) 2024 06/24/2022, 12/16/2020, 11/16/2020 Influenza Vaccine (#1) 2024 2, 05/14/2021, 06/02/2019, Additional history exists DTap / Tdap / Td (2 - Td or Tdap) 04/26/2025 04/26/2015 Hepatitis B Vaccines Completed 11/19/2022, 06/24/20 22 Pneumococcal Vaccine Aged Out 11/19/2022, 06/02/20 19 No longer eligible based on patient's age to complete this topic RSV Ped < 20 months Aged Out No longe r eligible based on patient's age to complete this topic Care Teams Career Education Teacher Relationship Specialty Start Date End Date Angelique Soni [address] [place] [address] PCP - General Family Medicine 03/25/23
--- OUTSIDE RECORDS SUMMARY | 2024-11-20 16:59 | XMS_ITS | Clinical Summary ---
Author Organization [facility] Address [address] [place] [address] Phone Care Team Providers Care Organ Tuner Electronic Name Role Phone Angelique Soni Primary Care Provider Un available Immunizations Name Administration Dates Next Due Moderna SARS-CoV-2 COVID-19, mRNA, LNP-S, preservative free 12/16/2020,11/16/2020 Surgical History Surgery Date Site/Laterality Comments CHOLECYSTECTOMY PROCEDURE: HISTORICAL CHOLECYSTECTOMY HYSTERECTOMY 08/09/2011 PROCEDURE: HISTORICAL HYSTERECTOMY CARPAL TUNNEL RELEASE Bilateral PROCEDURE: HISTORICAL CARPAL TUNNEL REL OTHER SURGICAL HISTORY PROCEDURE: HISTORY OTHER; COMMENT: Uterine Fibroid COLONOSCOPY 04/25/2019 PROCEDURE: HISTORICAL COLONOSCOPY OTHER SURGICAL HISTORY 04/25/2019 PROCEDURE: HI EGD PARTIAL/COMPL ESOPHAGOGASTRIC FUNDOPLASTY SECTION PROCEDURE: HISTORICAL DELIVERY; COMMENT: x2 - 1995 & 2008 Medical History Medical History Date Comments Hyperlipidemia DX:Hyperlipidemi a Thrombocytosis DX:Thrombocytosi s Pterygium of both eyes DX:Pteryg ium of both eyes HTN (hypertension) DX:HTN (hyper tension) CTS (carpal tunnel syndrome) DX: CTS (carpal tunnel syndrome) Obesity DX:Obesity Vitamin D deficiency DX:Vitamin D deficiency Depression DX:Depression Low back pain DX:Low back pain Neck pain on left side DX:Neck p ain on left side Depressive disorder DX:Depressiv e disorder Restless leg syndrome DX:Restles s leg syndrome Arthritis DX:Arthritis Essential hypertension DX:Essent ial hypertension JEWEL (obstructive sleep apnea) DX :JEWEL (obstructive sleep apnea) Fibromyalgia DX:Fibromyalgia Esophageal reflux DX:Esophageal reflux Uterine fibroid DX:Uterine fibro id; COMMENT: s/p surgery Wrist pain, left DX:Wrist pain, left Endometriosis DX:Endometriosis Cholecystitis, acute DX:Cholecys titis, acute Gastritis DX:Gastritis Chronic gastritis without bleeding DX:Chronic gastritis without bleeding Elevated LFTs DX:Elevated LFTs Covid-19 DX:COVID-19 GERD without esophagitis DX:GERD without esophagitis Mild persistent asthma with acute exacerbation DX:Mild persistent asthma wi th acute exacerbation Right upper quadrant abdominal pain DX:Right upper quadrant abdominal pain Musculoskeletal pain DX:Musculos keletal pain Radiculopathy DX:Radiculopathy Rash DX:Rash Vertigo DX:Vertigo Family History Medical History Relation Name Comments Angioplasty Father Coronary artery disease Father Hyperlipidemia Father Hypertension Father Other: angina Father Other: palpitations Father Coronary artery disease Mother Diabetes Mother Hyperlipidemia Mother Hypertension Mother Other: angina Mother Other: palpitations Mother Relation Name Status Comments Father Alive Mother Alive Social History Tobacco Use Types Packs/Day Years Used Date Smoking Tobacco: Never Smokeless Tobacco: Never Alcohol Use Standard Drinks/Week Comments Never 0 (1 standard drink = 0.6 oz pur e alcohol) Comments Unknown Sex and Gender Information Value Date Recorded Sex Assigned at Not on file Legal Sex Female 12:40 PM EST Gender Identity Not on file Sexual Orientation Not on file Obstetrics History Last Filed Vital Signs Vital Sign Reading Time Taken Comments Blood Pressure 118/80 12/07/2023 7:41 AM EDT Sitting R Arm Pulse 86 12/07/2023 7:41 AM EDT Temperature - - Respiratory Rate - - Oxygen Saturation - - Inhaled Oxygen Concentration - - Weight 77.7 kg (171 lb 6.4 oz) 12/07/2023 7:41 AM EDT Height 167.6 cm (5' 6 ) 12/07/2023 7:41 AM EDT Body Mass Index 27.66 12/07/2023 7:41 AM EDT Plan of Treatment Health Maintenance Due Date Last Done Comments Breast Cancer Screening 1976 DTaP,Tdap,and Td Vaccines (1 - Tdap) 1995 Hepatitis B Vaccines (1 of 3 - 19+ 3-dose series) 1995 Cervical Cancer Screening: P ap Smear 1997 Cholesterol Screening (Lipid Panel) 07/18/2022 Colorectal Cancer Screening: Colonoscopy 07/18/2022 Depression Screening 07/18/2022 HIV Screening 07/18/2022 Hepatitis C Screening 07/18/2022 Social Influencers of Health Screening 07/18/2022 Hypertension/CHF/CAD Annual BMP Blood Test 07/19/2022 COVID-19 Vaccine (2023-2 5 season) 2024 12/16/2020, 11/16/2020 Influenza Vaccine (Season Ended) 2025 HIB Vaccines Aged Out No longer eligi ble based on patient's age to complete this topic HPV Vaccines Aged Out No longer eligi ble based on patient's age to complete this topic Hepatitis A Vaccines Aged Out No long er eligible based on patient's age to complete this topic IPV Vaccines Aged Out No longer eligi ble based on patient's age to complete this topic MMR Vaccines Aged Out No longer eligi ble based on patient's age to complete this topic Meningococcal ACWY Vaccine Aged Out N o longer eligible based on patient's age to complete this topic Meningococcal B Vaccine Aged Out No l onger eligible based on patient's age to complete this topic Pneumococcal Vaccine: Pediatrics (0 to 5 Years) and At-Risk Patients (6 to 64 Years) Aged Out No longer eligible b ased on patient's age to complete this topic RSV Immunization Patients Under 20 months Aged Out No longer eligible b ased on patient's age to complete this topic Varicella Vaccines Aged Out No longer eligible based on patient's age to complete this topic Care Teams Organ Tuner Electronic Relationship Specialty Start Date End Date Angelique Soni [address] [place] [address] PCP - General 03/25/23
--- OUTSIDE RECORDS SUMMARY | 2024-11-20 16:59 | XMS_ITS | Clinical Summary ---
Author Organization [facility] Address [address] [place] [address] Care Team Providers Care Barrel Handler Name Role Phone Juarez Monteiro PA-C Primary Care Provider Source Comments PLEASE NOTE, if this patient is a minor, it may be UNLAWFUL to discuss sensitive information that is contained in these records (such as FAMILY PLANNING, MENTAL HEALTH or SUBSTANCE ABUSE) with the minor patient's parent or other person without the patient's specific authorization.[facility] Allergies Active Allergy Reactions Criticality Noted Date Comments Gabapentin Itching,Nausea and Vomiting High 03/24/20 18 Shrimp Swelling High 11/28/2015 Medications baclofen (LIORESAL) 10 mg tablet Take 1 Tab by mouth 2 (two) times daily 8 Active blood-glucose meter (FREESTYLE LITE METER) monitoring kitIndications:T ype 2 diabetes mellitus without complication, without long-term current use of insulin ([facility]) as needed for blood glucose monitoring 1 Each 9 Active nebulizer and compressorIndica tions:Bronchitis ,Cough Use with nebulizer solution Diag: J40, R05 1 Each 0 Active UBRELVY 100 mg tab 0 Active pregabalin (LYRICA) 300 mg capsuleIndicatio ns:Fibromyalgia Take 1 Capsule by mouth 2 (two) times daily 0 Active metoprolol succinate (TOPROL-XL) 25 mg 24 hr tabletIndication s:palpitations Take 25 mg by mouth once daily Indications: palpitations 1 Active BOTOX 200 unit solr injectionIndicat ions:migraine prevention Inject 200 Units into the muscle every 3 (three) months Indications: migraine prevention 1 Active VENTOLIN HFA 90 mcg/actuation inhalerIndicatio ns:Mild persistent asthma with acute exacerbation ([facility]) INHALE 2 PUFFS BY MOUTH EVERY 4 HOURS NEEDED FOR WHEEZING 18 g 1 1 Active ibuprofen 800 mg tablet Take 800 mg by mouth 3 (three) times daily as needed for pain 1 Active acetaminophen (ACETAMINOPHEN) 500 mg tablet Take 1 Tablet by mouth every 6 (six) hours NEEDED FOR SEVERE PAIN! 90 Tablet 3 1 Active cholecalciferol, vitamin D3, 25 mcg (1,000 unit) tabletIndication s:Mild vitamin D deficiency Take 1 tablet by mouth daily. 90 Tablet 1 1 Active lancets (FREESTYLE LANCETS) 28 gaugeIndications :Type 2 diabetes mellitus without complication, without long-term current use of insulin ([facility]) Use to test blood sugar daily before breakfast and as needed. 100 Each 1 1 Active blood sugar diagnostic stripsIndication s:Type 2 diabetes mellitus without complication, without long-term current use of insulin ([facility]) Use 1 test strip to test for high blood sugar once daily as needed. 50 Each 2 1 Active loratadine (CLARITIN) 10 mg tabletIndication s:Seasonal allergies Take 1 tablet by mouth daily as needed for allergy. 30 Tablet 4 2 Active hydroquinone 4 % cream APPLY TO THE FACE EVERY DAY NEEDED. 2 Active polyvinyl alcohol (LIQUIFILM TEARS) 1.4 % ophthalmic solution 2 Active verapamiL (VERELAN) 240 mg 24 hr capsule Take 1 Capsule by mouth once daily 30 Capsule 2 Active TRELEGY ELLIPTA 200-62.5-25 mcg dsdv Inhale 1 Puff into the lungs as needed (wheezing, chest tightness, SOB) Managed by pulmonology 3 Active metoprolol tartrate (LOPRESSOR) 25 mg tablet Take 25 mg by mouth 2 (two) times daily 3 Active omeprazole (PRILOSEC) [address] capsule Take 20 mg by mouth 2 (two) times daily 3 Active ipratropium-albu teroL (DUONEB) 0.5 mg-3 mg(2.5 mg base)/3 mL nebulizer solutionIndicati ons:Bronchitis Take 3 mL by nebulization 4 (four) times daily 90 mL 2 3 Active montelukast (SINGULAIR) 10 mg tabletIndication s:Medication refill Take 1 Tablet by mouth nightly at bedtime 30 Tablet 1 4 Active amoxicillin-pot clavulanate (AUGMENTIN) 875-125 mg per tabletIndication s:Non-recurrent acute suppurative otitis media of right ear without spontaneous rupture of tympanic membrane Take 1 Tablet by mouth 2 (two) times daily 14 Tablet 4 Active magnesium oxide (MAG-OX) 400 mg (241.3 mg magnesium) tablet 4 Active lidocaine (LIDODERM) 5 % patch APPLY ONE PATCH TOPICALLY TO CLEAN, DRY SKIN. LEAVE ON FOR 12 HOURS THEN REMOVE. MUST WAIT AT LEAST 12 HOURS BEFORE APPLYING PATCH(ES) AGAIN. 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 ([facility]) 11/19/2022 Overview (11/19/2022): Seeing Rheumatology at [facility] [place], currently on hydroxychloroquine 200mg BID Gastroesophageal reflux disease without esophagi tis 06/07/2020 Moderate persistent asthma without complication ([facility]) 06/07/2020 JEWEL (obstructive sleep apnea) 05/24/2020 S/P laparoscopic cholecystectomy 12/28/2015 Thrombocytosis 07/19/2015 Pterygium eye 04/26/2015 Overview (03/31/2017): [facility] 03/23/17 Pterygium Sx OU with [facility] and amnionic membrane graft Early granulomatous lesion OS removed in [place] Ok to use PF qd prn OU but risks of IOP spike-cat discussed CEE w/OD F/u in 6 months Dyslipidemia 04/13/2014 Depression 04/13/2014 Overview (07/19/2015): Currently stable, off meds. - [facility]- psychiatry and counselor. -taking medicine CTS (carpal tunnel syndrome) 01/04/2014 Overview (09/27/2014): emg- 09/18/14- - mild bilateral median mononeuropathies At the wrist. Left worse than right. - mild chronic denervation affecting the left abductor pollicis brevis. HTN (hypertension) 12/05/2013 Overview (07/19/2015): On verapamil and controlled. Uterine fibroid s/p surgery 11/30/2013 Overview (07/28/2015): [place] with dysmenorrhagia, dyspareunia. S/p tubal ligation-2008. 2 uterine fibroids, Hysteroscopy on 12/14/11- endometrial polyp ,biopsy- benign. Total abdominal hysterectomy ,excision of rt ovarian endometrioma, lysis of adhesions for uterine fibroids as well as endometriosis. Musculoskeletal pain 11/30/2013 Overview (03/10/2023): c spine- rt sided c5-6 spondylosis, facet arthropathy resulting in neural foraminal encroachment. Pt had left c7 trans forminal epidural steroid injection On 11/28/14. Small c6/c7 disc herniation,s/p injection Resolved Problems Problem Noted Date Diagnosed Date Resolved Date Type 2 diabetes ([facility]) 11/19/2022 Right upper quadrant abdominal pain 07/08/2020 11/19/2022 COVID-19 ruled out by laboratory testing 02/22/2020 11/19/2022 Overview (02/22/2020): COVID-19 Tracking [reviewed or updated 02/22/2020] ? ? Exposure to confirmed case or travel risk - Yes, Datejune ? ? Date that symptoms began - 02/15 ? ? Patient risk factors for severe COVID-19: Chronic lung disease (COPD, Cystic Fibrosis, ILD) or moderate to severe asthma ? ? Healthcare worker or pediatric allergist? No ? ? COVID-19 Tested? - No ? ? Is patient ? No Elevated LFTs 01/24/2019 11/19/2022 Overview (01/24/2019): Managed by GI-last follow-up october 2018-?likely fatty liver disease, recommend weight loss Chronic gastritis without bleeding 12/28/2015 11/19/2022 History of thrombocytosis 12/28/2015 Acute right otitis media 11/28/2015 Gastritis 11/28/2015 11/19/2022 Cholecystitis, acute 11/20/2015 023 Overview (12/06/2015): Pt is admitted into [facility] for acute cholecystitis S/p lap cholecystectomy from to 11/19/15. Endometriosis 04/26/2015 11/19/2022 Rash and nonspecific skin eruption 06/15/2014 03/09/2015 Left otitis media with effusion 04/16/2014 12/28/2015 Mild vitamin D deficiency 04/15/2014 Vitamin D deficient rickets 01/04/2014 04/15/2014 Wrist pain, left 01/04/2014 11/19/2022 Overview (01/11/2014): Left wrist xray- normal-01/09/14. Numbness and tingling in left arm 01/04/2014 03/09/2015 Routine general medical exam ination at a health care facility 11/30/2013 11/19/2022 Low back pain 11/30/2013 11/19/2022 H/O mammogram 10/30/2013 11/19/2022 Overview (04/07/2015): 10/24/13- was normal on patient at [facility]. 03/27/15- normal. Immunizations Immunization Administration Dates Next Due Flu, Preservative Free 06/13/2022,2020,06/02/2019,06/15 Flu, Recombinant, 18y+, Flublok 05/15/2023 Hep B,adult,adjuvanted (HEPLISAV) 11/19/2022, INFLUENZA, SEASONAL, INJECTA BLE, PRESERVATIVE FREE 07/29/2016,06/20/2015,06/20/2015 MMR (MMR II/Priorix) 12/04/2022 Moderna COVID-19 Vaccine, re d cap blue label, 12+ Primary Series 12/16/2020,11/16/2020 PNEUMOCOCCAL CONJUGATE PCV 13 11/19/2022 PNEUMOCOCCAL POLYSACCHARIDE PPV23 06/02/2019 Pfizer-[facility] COVID-19 Vac cine Bivalent, (MORGAN PFIZER-[employer] COVID-19 VACCINE BIVALENT, (MORGAN CAP 06/24/2022 TDAP 04/26/2015 Family History Medical History Relation Name Comments Cancer Maternal Aunt breast cancer Cancer Maternal Uncle bone Diabetes Mother Hypertension Mother Cancer Sister cervical cancer Relation Name Status Comments Maternal Aunt breast cancer Maternal Uncle bone Mother Sister cervical cancer Alive Social History Tobacco Use Types Packs/Day Years Used Date Smoking Tobacco: Never Smokeless Tobacco: Never Tobacco Cessation:Counseling Given: Not Answered Alcohol Use Standard Drinks/Week Comments No 0 (1 standard drink = 0.6 oz pur e alcohol) Social Connections Answer Date Recorded Connectedness 1 05/08/2024 Financial Resource Strain Answer Date R ecorded Financial Resource Strain 1 2023 Stress Answer Date Recorded Stress 1 05/08/2024 Physical Activity Answer Date Recorded Physical Activity 0 03/27/2019 Food Insecurity Answer Date Recorded Food 1 05/08/2024 Transportation Needs Answer Date Record ed Transportation 1 05/08/2024 Housing Stability Answer Date Recorded Housing 1 05/08/2024 Safety and Environment Answer Date Vimal rded Safety 1 01/18/2024 Utilities Answer Date Recorded Utilities 1 05/08/2024 Employment Answer Date Recorded Stress 0 10/27/2021 Comments No Sex and Gender Information Value Date Recorded Sex Assigned at Female 06/15/2017 9:49 AM PST Legal Sex Female 11:36 AM PDT Gender Identity Female 06/15/2017 9:49 AM PST Sexual Orientation Straight 06/15/2017 9: 49 AM PST Occupation Industry Job Start Date Job End Date not employed Not on file Not on file Not on file Last Filed Vital Signs Vital Sign Reading Time Taken Comments Blood Pressure 142/92 05/08/2024 3:25 PM EDT Pulse 90 05/08/2024 3:25 PM EDT Temperature 36.7 ??C (98.1 ??F) 01/18/2024 4:14 PM ED T Respiratory Rate 16 05/08/2024 3:25 PM EDT Oxygen Saturation 99% 05/08/2024 3:25 PM EDT Inhaled Oxygen Concentration - - Weight 62.1 kg (136 lb 12.8 oz) 05/08/2024 3:25 PM EDT Height 165.1 cm (5' 5 ) 05/08/2024 3:25 PM EDT Body Mass Index 22.76 05/08/2024 3:25 PM EDT Plan of Treatment Health Maintenance Due Date Last Done Comments Anxiety Screening 1976 Dental Examination 1976 HPV Screening 1976 Pap + HPV 1976 CT Colonography 2021 Colonoscopy 2021 Colorectal Cancer Screening 2021 FIT/gFOBT 2021 Fecal DNA 2021 Flexible Sigmoidoscopy 2021 Breast Cancer Screening (Mammogram) 11/25/2021 11/25/2020, 03/27/2015 (Managed by Outside Provider) Medicare Annual Wellness Visit 02/11/2022 0 02/11/2021, 07/09/2020, 03/24/2018 [id number] ( season) 2024 08/22/2022, 06/24/2022, 10/08/2021, Additional history exists Imm-Influenza (#1) 2024 05/15/2023, 1 08/13/2021, 05/14/2021, Additional history exists Depression Monitoring 08/07/2024 05/08/2024 , 01/18/2024, 03/10/2023, Additional history exists Alcohol and Drug Screen 08/09/2024 05/08/20 24, 01/18/2024, 11/19/2022, Additional history exists Relationship Safety Screening/Counseling 01/17/2025 01/18/2024, 11/19/2022, 11/18/2021, Additional history exists Diabetes Screening 01/19/2025 01/20/2024, 0 01/20/2024, 03/11/2023, Additional history exists Imm-DTaP/Tdap/Td (2 - Td or Tdap) 04/26/2025 015 Tobacco Screening 05/14/2025 05/14/2024, 11/19/2022 Lipid Screening 01/19/2027 01/20/2024, 11/07, 12/03/2021, Additional history exists Imm-Pneumococcal (3 of 3 - P CV20 or PCV21) 11/20/2027 11/19/2022, 06/02/2019 Pap Smear Discontinued 01/07/2015 (Christina davison by Outside Provider) Hepatitis C Screening Completed 01/26/2019, 018 Imm-Hepatitis B Completed 11/19/2022, 06/24/2022 HIV Screening Completed 01/20/2024, 0810/2022, 07/09/2020, Additional history exists Cervical Ablation/Cold-Knife Conization Discontinued Cervical Cancer Screening Discontinued Cervical Cryotherapy Discontinued Colposcopy Discontinued Endometrial Biopsy Discontinued Excision/Leep Discontinued HPV Genotyping Discontinued Vaginal Pap Discontinued Vulvoscopy Discontinued Goals Goal Patient Goal Type Associated Problems Recent Progress Patient-Stated? Author Have 3 meals a day Diet Not on track(09/04/19 16 10:22 AM PST) No Venecia Obrien RD Decrease soda or juice intake Diet No Venecia Obrien RD Increase physical activity Exercise Not on track(09/04/19 16 10:22 AM PST) No Venecia Obrien RD Procedures Procedure Name Priority Date/Time Associated Diagnosis Comments HIV 1/2 AG & AB W/RFLX (4TH GEN) Routine 01/20/2024 8:59 AM EDT Pre-op evaluation COMPREHENSIVE METABOLIC PANEL Routine 01/20/2024 8:59 AM EDT Pre-op evaluation Prediabetes Primary hypertension Dyslipidemia LIPID PANEL Routine 01/20/2024 8:59 AM EDT Prediabetes Primary hypertension Dyslipidemia HISTORIC MAMMOGRAM 11/25/2020 12 :00 AM EDT HEPATITIS A,B,C PANEL Routine 01/26/2019 11:18 AM EDT Elevated LFTs from Last 3 Months or Most Recently Relevant to Health Maintenance Results * HIV 1/2 AG & AB W/RFLX (4TH GEN) (01/20/2024 8:59 AM EDT) HIV AG/AB, 4TH GEN NON-REAC TIVE NON-REAC TIVE [facility] Comment: HIV-1 antigen and HIV-1/HIV-2 antibodies were not detected. There is no laboratory evidence of HIV infection. PLEASE NOTE: This information has been disclosed to you from records whose confidentiality may be protected by state law. ??If your state requires such protection, then the state law prohibits you from making any further disclosure of the information without the specific written consent of the person to whom it pertains, or as otherwise permitted by law. A general authorization for the release of medical or other information is NOT sufficient for this purpose. ?? For additional information please refer to http://education.[employer]/faq/TBY469 (This link is being provided for informational/ educational purposes only.) The performance of this assay has not been clinically validated in patients less than 2 years old. Blood Blood / Unknown 01/20/2024 8 :59 AM EDT 01/20/2024 8:59 AM EDT Narrative [employer] - 01/21/2024 5:29 AM EDT FASTING:YES us Juarez Monteiro PA-C LAB - BLOOD DRAW Final Resul t [employer] [address] [place] [id number], [employer] [address] [phone] * (ABNORMAL) LIPID PANEL (01/20/2024 8:59 AM EDT) CHOLESTEROL, TOTAL 199 <200 mg/dL [facility] HDL CHOLESTEROL 46(L) > OR = 50 mg/dL [facility] TRIGLYCERIDES 127 <150 mg/dL [facility] LDL-CHOLESTEROL 129(H) 99 mg/dL (calc) [facility] Comment: Reference range: <100 Desirable range <100 mg/dL for primary prevention; ?? <70 mg/dL for patients with CHD or diabetic patients with > or = 2 CHD risk factors. LDL-C is now calculated using the John calculation, which is a validated novel method providing better accuracy than the Friedewald equation in the estimation of LDL-C. Dorian SS et al. CIRILO. 2013;310(19): 2676-9088 (http://education.Cluepedia/faq/FTN280) CHOL/HDLC RATIO 4.3 <5.0 (calc) [facility] NON-HDL CHOLESTEROL 153(H) <130 mg/dL (calc) [facility] Comment: For patients with diabetes plus 1 major ASCVD risk factor, treating to a non-HDL-C goal of <100 mg/dL (LDL-C of <70 mg/dL) is considered a therapeutic option. Blood Blood / Unknown 01/20/2024 8 :59 AM EDT 01/20/2024 8:59 AM EDT Narrative [employer] - 01/21/2024 5:29 AM EDT FASTING:YES Juarez Monteiro PA-C LAB - BLOOD DRAW Final Resul t [employer] [address] [place] [id number], [facility] [address] [place] [phone] * COMPREHENSIVE METABOLIC PANEL (01/20/2024 8:59 AM EDT) [facility] GLUCOSE 83 65 - 99 mg/dL [facility] Comment: ?Fasting reference interval UREA NITROGEN (BUN) 8 7 - 25 mg/dL [facility] CREATININE (blood) 0.66 0.50 - 0.99 mg/dL [facility] EGFR 109 > OR = 60 mL/min/1. 73m2 [facility] BUN/CREATININE RATIO SEE NOTE: [facility] Comment: ?? Not Reported: BUN and Creatinine are within ?? reference range. ? SODIUM 138 135 - 146 mmol/L [facility] POTASSIUM 4.2 3.5 - 5.3 mmol/L [facility] CHLORIDE 103 98 - 110 mmol/L [facility] CARBON DIOXIDE 29 20 - 32 mmol/L [facility] CALCIUM 8.9 8.6 - 10.2 mg/dL [facility] PROTEIN, TOTAL 6.9 6.1 - 8.1 g/dL [facility] ALBUMIN 4.1 3.6 - 5.1 g/dL [facility] GLOBULIN 2.8 1.9 - 3.7 g/dL (calc) [facility] ALBUMIN/GLOBULI N RATIO 1.5 1.0 - 2.5 (calc) [facility] BILIRUBIN, TOTAL 0.7 0.2 - 1.2 mg/dL [facility] ALKALINE PHOSPHATASE 107 31 - 125 U/L [facility] AST 14 10 - 35 U/L [facility] ALT 10 6 - 29 U/L [facility] Blood Blood / Unknown 01/20/2024 8 :59 AM EDT 01/20/2024 8:59 AM EDT Narrative [employer] - 01/21/2024 5:29 AM EDT FASTING:YES Juarez Monteiro PA-C LAB - BLOOD DRAW Edited Resu lt - Final [facility] [address] [address], [facility] [address] [phone] * HISTORIC MAMMOGRAM (11/25/2020 12:00 AM EDT) Anatomical Region Laterality Modality Other 11/25/2020 Juarez Monteiro PA-C IMG MAMMO Final Result * HEPATITIS A,B,C PANEL (01/26/2019 11:18 AM EDT) HEPATITIS B SURFACE ANTIBODY NEGATIVE NEGATIVE [facility] HEPATITIS B SURFACE ANTIGEN NEGATIVE NEGATIVE [facility] Comment: Over the counter supplements containing high doses of biotin may interfere with this assay. ??If interference is suspected, patients shoud be retested after refraining from biotin supplements for 72 hours. HEPATITIS C VIRUS DIAGNOSTIC NEGATIVE NEGATIVE [facility] HEPATITIS B CORE ANTIBODY NEGATIVE NEGATIVE [facility] HEPATITIS A ANTIBODY TOTAL NEGATIVE NEGATIVE [facility] Comment: Over the counter supplements containing high doses of biotin may interfere with this assay. ??If interference is suspected, patients shoud be retested after refraining from biotin supplements for 72 hours. Blood specimen (specimen) Blood / Unknown 01/26/2019 11:18 AM EDT 01/26/2019 1:40 PM EDT [facility] - 01/26/2019 7:14 PM EDT [employer], [place] [address] Dot Etcher Apprentice - Helga Ortiz MD [place] [id number] [employer]# [id number] us Siddharthajenny Long LINE TECHNICIAN LAB - BLOOD DRAW Edited Result - Final [address] [address], from Last 3 Months or Most Recently Relevant to Health Maintenance Insurance [facility] Member Subscriber Plan / Payer (Ef fective 2019-Present) Name:Alberto Munoz Relation to Subscriber:Self Name:Alberto Munoz Payer ID:[id number] Group ID:Not on file Type:Indemnity Address: [address] [address] Care Teams Barrel Handler Relationship Specialty Start Date End Date Juarez Monteiro PA-C [address] [place] [address] PCP - General [facility]ILY [facility] [place] 11/12/20
== END 2024-11-20 15:15 | disposition home or self-care (01) ==
LOC: HO.HSMS 14:35
PROVIDERS: PCP Internal Medicine; Visit Provider Nurse Practitioner Family
DX: G43.719 Chronic migraine without aura, intractable, without status migrainosus (principal); M54.2 Cervicalgia; G25.81 Restless legs syndrome; G47.33 Obstructive sleep apnea (adult) (pediatric)
CPT/HCPCS: 99214; G2211

== ENCOUNTER → 2024-11-20 14:35 | Outpatient (BNVA) | payer OTHER, SELFPAY | PROVIDERS: PCP Internal Medicine; Visit Provider Nurse Practitioner Family | DX: G43.719 Chronic migraine without aura, intractable, without status migrainosus (principal); G25.81 Restless legs syndrome; G47.33 Obstructive sleep apnea (adult) (pediatric); M54.2 Cervicalgia | CPT/HCPCS: 99212 ==

== ENCOUNTER 2025-02-05 07:42 | Outpatient (AMB) | payer OTHER, SELFPAY ==
--- NOTE | 2025-02-05 07:43 | A.OFFVIS_ITS ---
Vital Signs 02/05/25 07:45 Height 5 ft 6 in Weight 160 lb BMI 25.8 BP 118/74 Blood Pressure Location Rt brachial Position Sitting Pulse 78 Pulse Source Pulse Oximeter Pulse Oximetry (%) 98 Oxygen Delivery Method Room Air Intake Visit Reasons: Botox Intake Note: Royal presents for botox injection Allergies gabapentin Allergy (Severe, Verified 02/05/25 07:45) Nausea and Vomiting shrimp Allergy (Severe, Verified 02/05/25 07:45) Nausea and Vomiting Medication List - Last Reconciled 02/05/25 by Sri Fletcher MD acetaminophen 500 mg PO Q6H PRN albuterol sulfate 90 mcg/actuation 2 puffs inhalation Q4H PRN 90 days azithromycin 500 mg PO DAILY 5 days baclofen 1 tab bid and 2 tabs qhs orally bedtime PRN; 30 days benzonatate 200 mg PO BID PRN 30 days cholecalciferol (vitamin D3) 50 mcg PO DAILY 30 days hfcjpbiebhx-cttoaergn-lfsqmcmi 200-62.5-25 mcg (Trelegy Ellipta) 1 inh inhalation DAILY 30 days ibuprofen 600 mg PO Q6H PRN 14 days ipratropium-albuterol 0.5 mg-3 mg(2.5 mg base)/3 mL mL inhalation lidocaine 5% (Lidoderm) 1 patch topical DAILY 30 days loratadine 10 mg PO DAILY 30 days magnesium oxide 400 mg PO DAILY 30 days metoprolol tartrate 25 mg PO BID montelukast 10 mg PO DAILY naproxen 750 mg PO DAILY PRN nebulizers As directed omeprazole 40 mg PO BID onabotulinumtoxinA (Botox) 200 units IM ONCE 12 weeks pregabalin (Lyrica) 300 mg PO BID 30 days ubrogepant 100 mg orally 1 tab at onset of migraine, may repeat in 2 hrs (max 200mg/day) PRN; 32 days verapamil ER 240 mg PO DAILY 30 days HPI Comments Details: 49 y/o female comes for treatment of migraines with botox How many migraine days prior to botox- 20-25/month How long do the migraines last- 1-2 days Intensity of migraine8/10 ER visits related to migraine multiple Effectiveness of botox from last two treatment(s) How many migraine days since receiving treatment: 3-4 /month Change? in intensity of migraine?decreased Change in frequency of migraine?decreased Change in use of acute medication for migraine?decreased Change in quality of life? good ER visits related to migraine? none Have at least three months elapsed since last treatment (Last botox date - frequency of injections) yes ??? Most frequent reported adverse reactions following injection of botox for chronic 7y7 include neck pain (9%), headache(5%), eyelid ptosis(4%), migraine(4%), muscular weakness(4%), musculoskeletal stiffness(4%), bronchitis(3%), injection site pain (3%), musculoskeletal pain(3%), myalgia(3%), facial paresis(2%), HTN(2%) and muscle spasms(2%) were discussed in detail. ??? Botulinum toxin typeA 200units Lot no [id number] expiration May 2027 was diluted with 4 cc of normal saline . ??? Muscles injected- ??? Frontalis 4 sites ??? Procerus 1 site ??? Demurrage Man- 2 sites ??? Temporalis- 8 sites ??? Occipitalis- 6 sites ??? Cervical paraspinals- 4 sites ??? Trapezius- 6 sites- 10units each ??? 5 units each in 31 site ??? Total use- 185units ??? Discarded-15units [facility] Medical History Chronic migraine without aura, intractable, without status migrainosus JEWEL (obstructive sleep apnea) Chronic migraine without aura Hypergammaglobulinemia Thrombocytosis Long-term use of Plaquenil COVID-19 Carpal tunnel syndrome on both sides Cataract Pre-op chest exam JEWEL on CPAP Chronic restrictive lung disease LAVONNE positive Bronchitis, asthmatic Dyspnea Chest pain Surgical History H/O elbow surgery Hx of cataract extraction History of carpal tunnel release of both wrists Hx of section Hx of tubal ligation Hx of cholecystectomy H/O: hysterectomy Family History Mother Diabetes HTN (hypertension) CVD (cardiovascular disease) Ovarian cancer Father HTN (hypertension) CVD (cardiovascular disease) Maternal Grandfather Stomach cancer Maternal Uncle Lung cancer Mother Rheumatoid arthritis Social History Household Members: Children Alcohol intake: never Patient Tobacco Use Status: Never used Tobacco Current occupational status: disabled Female Reproductive History Menstrual Age of Menarche: 13 Physical Exam Vital Signs: Last Vital Signs Pulse 78 02/05/25 07:45 BP 118/74 02/05/25 07:45 Pulse Ox 98 02/05/25 07:45 Oxygen Delivery Method Room Air 02/05/25 07:45 BMI result Body Mass Index 25.8 Const General: cooperative and no acute distress Orientation/consciousness: patient oriented x3 HEENT Head: Yes normocephalic Back/Spine/Pelvis Other: Left paraspinal tenderness. Neuro General: patient oriented x3 and CN's II-XI intact bilaterally Cognition (Neuro): normal cognition Gait exam (Neuro): Normal gait present Motor exam (neuro): 5/5 motor strength present throughout Office Procedures Botulinum toxin Injection 52304 - Migraine Procedure code (CPT) selection complete Office Meds onabotulinumtoxinA 200 unit solution for injection Performing Provider: Sri Fletcher MD Performing Location: [facility] Administered by: Sri Fletcher MD on 02/05/25 08:09 Dose Route Admin Location Dispensed Lot Number Expiration Date [facility] Database Consultant 185 unit subcut 200 units [id number] ALLERGAN /BOTOX Total Dispensed Waste 200 units 7.5 % Assessment & Plan Assessment & Plan (1) Chronic migraine without aura, intractable, without status migrainosus: Code(s): G43.719 - Chronic migraine without aura, intractable, without status migrainosus Category: Medical Plan Patient tolerated the procedure well she will call with any side effects Orders: Orders AMB Botulinum toxin Injection Today G43.719 - Chronic migraine without aura, intractable, without status migrainosus Coding Level of Care Code Est Pt Level 1 (01067) Diagnoses Chronic migraine without aura, intractable, without status migrainosus G43.719 CPT Codes Botox Injection - Botox 3: 86450 - Migraine ([id number])
[2025-02-05 07:45] VITALS: BP 118/74; PULSE 78; O2SAT 98; BMI 25.8
== END 2025-02-05 08:04 | disposition home or self-care (01) ==
LOC: HO.HSMS 07:43
PROVIDERS: PCP Internal Medicine; Visit Provider Psychiatry & Neurology Neurology
DX: G43.719 Chronic migraine without aura, intractable, without status migrainosus (principal)
CPT/HCPCS: 64615

== ENCOUNTER → 2025-02-05 07:42 | Outpatient (BNVA) | payer OTHER, SELFPAY | PROVIDERS: PCP Internal Medicine; Visit Provider Psychiatry & Neurology Neurology | DX: G43.719 Chronic migraine without aura, intractable, without status migrainosus (principal); G47.33 Obstructive sleep apnea (adult) (pediatric); D89.2 Hypergammaglobulinemia, unspecified; D69.6 Thrombocytopenia, unspecified; J45.909 Unspecified asthma, uncomplicated; Z79.51 Long term (current) use of inhaled steroids; Z79.69 Long term (current) use of other immunomodulators and immunosuppressants | CPT/HCPCS: 64615; 99211; J0585 ==

== ENCOUNTER 2025-05-08 08:00 | Outpatient (AMB) | payer OTHER, SELFPAY ==
--- NOTE | 2025-05-08 08:02 | MHC.OFFVIS ---
Vital Signs 05/08/25 08:03 Height 5 ft 6 in Weight 161 lb BMI 26.0 BP 110/70 Blood Pressure Location Rt brachial Position Sitting Pulse 81 Pulse Source Pulse Oximeter Pulse Oximetry (%) 98 Oxygen Delivery Method Room Air Intake Visit Reasons: Botox Intake Note: Botox Refrigeration Mechanic Helper Required: Yes Refrigeration Mechanic Helper Services: Refrigeration Mechanic Helper Present Refrigeration Mechanic Helper Name: John Herrera [id number] Accompanied by: Self / Same As Patient Allergies gabapentin Allergy (Severe, Verified 05/08/25 08:03) Nausea and Vomiting shrimp Allergy (Severe, Verified 05/08/25 08:03) Nausea and Vomiting Medication List - Last Reconciled 05/08/25 by Sri Fletcher MD acetaminophen 500 mg PO Q6H PRN albuterol sulfate 90 mcg/actuation 2 puffs inhalation Q4H PRN 90 days baclofen 1 tab bid and 2 tabs qhs orally bedtime PRN; 30 days benzonatate 200 mg PO BID PRN 30 days cholecalciferol (vitamin D3) 50 mcg PO DAILY 30 days abkwoewdpan-jijywxtrx-wovczfbj 200-62.5-25 mcg (Trelegy Ellipta) 1 inh inhalation DAILY 30 days ibuprofen 600 mg PO Q6H PRN 14 days ipratropium-albuterol 0.5 mg-3 mg(2.5 mg base)/3 mL mL inhalation lidocaine 5% (Lidoderm) 1 patch topical DAILY 30 days loratadine 10 mg PO DAILY 30 days magnesium oxide 400 mg PO DAILY 30 days metoprolol tartrate 25 mg PO BID nebulizers As directed omeprazole 40 mg PO BID onabotulinumtoxinA (Botox) 200 units IM ONCE 12 weeks pregabalin (Lyrica) 300 mg PO BID 30 days ubrogepant 100 mg orally 1 tab at onset of migraine, may repeat in 2 hrs (max 200mg/day) PRN; 32 days verapamil ER 240 mg PO DAILY 30 days HPI Comments Details: 49 y/o female comes for treatment of migraines with botox How many migraine days prior to botox- 20-25/month How long do the migraines last- 1-2 days Intensity of migraine8/10 ER visits related to migraine multiple Effectiveness of botox from last two treatment(s) How many migraine days since receiving treatment: 3-4 /month Change? in intensity of migraine?decreased Change in frequency of migraine?decreased Change in use of acute medication for migraine?decreased Change in quality of life? good ER visits related to migraine? none Have at least three months elapsed since last treatment (Last botox date - frequency of injections) yes ??? Most frequent reported adverse reactions following injection of botox for chronic 7y7 include neck pain (9%), headache(5%), eyelid ptosis(4%), migraine(4%), muscular weakness(4%), musculoskeletal stiffness(4%), bronchitis(3%), injection site pain (3%), musculoskeletal pain(3%), myalgia(3%), facial paresis(2%), HTN(2%) and muscle spasms(2%) were discussed in detail. ??? Botulinum toxin typeA 200units Lot no [id number] expiration Jun 2027 was diluted with 4 cc of normal saline . ??? Muscles injected- ??? Frontalis 4 sites ??? Procerus 1 site ??? [employer]- 2 sites ??? Temporalis- 8 sites ??? Occipitalis- 6 sites ??? Cervical paraspinals- 4 sites ??? Trapezius- 6 sites- 10units each ??? 5 units each in 31 site ??? Total use- 185units ??? Discarded-15units [facility] Medical History Chronic migraine without aura, intractable, without status migrainosus JEWEL (obstructive sleep apnea) Chronic migraine without aura Hypergammaglobulinemia Thrombocytosis Long-term use of Plaquenil COVID-19 Carpal tunnel syndrome on both sides Cataract Pre-op chest exam JEWEL on CPAP Chronic restrictive lung disease LAVONNE positive Bronchitis, asthmatic Dyspnea Chest pain Surgical History H/O elbow surgery Hx of cataract extraction History of carpal tunnel release of both wrists Hx of section Hx of tubal ligation Hx of cholecystectomy H/O: hysterectomy Family History Mother Diabetes HTN (hypertension) CVD (cardiovascular disease) Ovarian cancer Father HTN (hypertension) CVD (cardiovascular disease) Maternal Grandfather Stomach cancer Maternal Uncle Lung cancer Mother Rheumatoid arthritis Social History Household Members: Children Alcohol intake: never Patient Tobacco Use Status: Never used Tobacco Current occupational status: disabled Female Reproductive History Menstrual Age of Menarche: 13 Physical Exam Vital Signs: Last Vital Signs Pulse 81 05/08/25 08:03 BP 110/70 05/08/25 08:03 Pulse Ox 98 05/08/25 08:03 Oxygen Delivery Method Room Air 05/08/25 08:03 BMI result Body Mass Index 26.0 Const General: cooperative and no acute distress Orientation/consciousness: patient oriented x3 HEENT Head: Yes normocephalic Back/Spine/Pelvis Other: Left paraspinal tenderness. Neuro General: patient oriented x3 and CN's II-XI intact bilaterally Cognition (Neuro): normal cognition Gait exam (Neuro): Normal gait present Motor exam (neuro): 5/5 motor strength present throughout Office Procedures Botulinum toxin Injection 13638 - Migraine Procedure code (CPT) selection complete Office Meds onabotulinumtoxinA 200 unit solution for injection Performing Provider: Sri Fletcher MD Performing Location: [facility] Administered by: Sri Fletcher MD on 05/08/25 08:30 Dose Route Admin Location Dispensed Lot Number Expiration Date [facility] Telegraph Office Telephone Clerk 185 unit subcut 200 units [id number] ALLERGAN/BOTOX Total Dispensed Waste 200 units 7.5 % Comments: see HPI Assessment & Plan Assessment & Plan (1) Chronic migraine without aura, intractable, without status migrainosus: Code(s): G43.719 - Chronic migraine without aura, intractable, without status migrainosus Category: Medical Plan Patient tolerated the procedure well she will call with any side effects Orders: Orders AMB Botulinum toxin Injection Today G43.719 - Chronic migraine without aura, intractable, without status migrainosus Coding Level of Care Code Est Pt Level 1 (90856) Diagnoses Chronic migraine without aura, intractable, without status migrainosus G43.719 CPT Codes Botox Injection - Botox 3: 82564 - Migraine ([id number])
[2025-05-08 08:03] VITALS: BP 110/70; PULSE 81; O2SAT 98; BMI 26.0
--- OUTSIDE RECORDS SUMMARY | 2025-05-08 08:10 | XMS_ITS | Clinical Summary ---
Author Organization [facility] Address [address] [place] [address] Care Team Providers Care Gauntlet Pairer Name Role Phone Angelique Soni Primary Care Provider [phone] Allergies Active Allergy Reactions Criticality Noted Date [...] 89 11/04/2023 2:17 PM EDT Temperature 37 C (98.6 F) 11/04/2023 2:17 PM EDT Respiratory Rate - [...] Screening (Colonoscopy) 2021 COVID-19 Vaccine ( season) 2025 06/24/2022, 12/16/2020, 11/16/2020 Influenza Vaccine (#1) 2025 2, 05/14/2021, 06/02/2019, Additional history exists DTap [...] age to complete this topic Care Teams Gauntlet Pairer Relationship Specialty Start Date End Date Angelique Soni [address] [place] [address] PCP - General Family Medicine 03/25/23
--- OUTSIDE RECORDS SUMMARY | 2025-05-08 08:10 | XMS_ITS | Clinical Summary ---
Author Organization [address] [facility] Address [address] [place] [address] Phone Care Team Providers Care Application Analyst Name Role Phone NaeAngeliqueank [employer] Primary Care Provide r Unavailable Immunizations Immunization Administration Dates Next Due Moderna SARS-CoV-2 COVID-19, mRNA, LNP-S, preservative free 12/16/2020,11/16/2020 Surgical History Surgery Date Site/Laterality Comments CHOLECYSTECTOMY PROCEDURE: HISTORICAL CHOLECYSTECTOMY HYSTERECTOMY 08/09/2011 PROCEDURE: HISTORICAL HYSTERECTOMY CARPAL TUNNEL RELEASE Bilateral PROCEDURE: HISTORICAL CARPAL TUNNEL REL OTHER SURGICAL HISTORY PROCEDURE: HISTORY OTHER; COMMENT: Uterine Fibroid COLONOSCOPY 04/25/2019 PROCEDURE: HISTORICAL COLONOSCOPY OTHER SURGICAL HISTORY 04/25/2019 PROCEDURE: NC EGD PARTIAL/COMPL ESOPHAGOGASTRIC FUNDOPLASTY SECTION PROCEDURE: HISTORICAL [...] Last Done Comments Breast Cancer Screening 1976 Colorectal Cancer Screening: Colonoscopy 1976 DTaP,Tdap,and Td Vaccines (1 - Tdap) 1995 Hepatitis B Vaccines (1 of 3 - 19+ 3-dose series) 1995 Cervical Cancer Screening: P ap Smear 1997 Cholesterol Screening (Lipid Panel) 07/18/2022 HIV Screening 07/18/2022 Hepatitis C Screening 07/18/2022 Social Influencers of Health Screening 07/18/2022 Hypertension/CHF/CAD Annual BMP Blood Test 07/19/2022 Depression Screening 08/09/2024 COVID-19 Vaccine (3 - 2024-2 6 season) 2025 12/16/2020, 11/16/2020 Influenza Vaccine (#1) 2025 RSV Immunization Adult Patients (1 - 1-dose 75+ series) 2051 HIB Vaccines Aged Out No longer eligi [...] 5 Years) and At-Risk Patients (6 to 49 Years) Aged Out No longer eligible b ased on patient's age to complete this topic RSV Immunization Patients Under 20 months Aged Out No longer eligible b ased on patient's age to complete this topic Varicella Vaccines Aged Out No longer eligible based on patient's age to complete this topic Care Teams Application Analyst Relationship Specialty Start Date End Date Angelique Soni FNP [address] [place] [address] PCP - General 03/25/23
--- OUTSIDE RECORDS SUMMARY | 2025-05-08 08:11 | XMS_ITS | Clinical Summary ---
Author Organization [facility] Address [address] [place] [address] Care Team Providers Care Audio Installer Name Role Phone Juarez Monteiro PA-C Primary [...] complication, without long-term current use of insulin as needed for blood glucose monitoring 1 [...] inhalerIndicatio ns:Mild persistent asthma with acute exacerbation INHALE 2 PUFFS BY MOUTH EVERY 4 [...] complication, without long-term current use of insulin Use to test blood sugar daily before breakfast and as needed. 100 Each 1 1 Active blood sugar diagnostic stripsIndication s:Type 2 diabetes mellitus without complication, without long-term current use of insulin Use 1 test strip to test for [...] sore throat 18 Lozenge 1 4 Active omeprazole (PRILOSEC) [address] capsule Take 1 Capsule by mouth daily. 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 11/19/2022 Overview (11/19/2022): Seeing Rhe[place]ology at [facility] [place] Alfred, currently on hydroxychloroquine 200mg BID Gastroesophageal reflux disease without esophagi tis 06/07/2020 Moderate persistent asthma without complication 06/07/2020 JEWEL (obstructive sleep apnea) 05/24/2020 S/P laparoscopic cholecystectomy 12/28/2015 Thrombocytosis 07/19/2015 Pterygium eye 04/26/2015 Overview (03/31/2017): [facility] 03/23/17 Pterygium Sx OU with MMC and amnionic membrane graft Early granulomatous lesion OS removed in March Ok to use PF qd prn OU but risks of IOP spike-cat discussed CEE w/OD F/u in 6 months Dyslipidemia 04/13/2014 Depression 04/13/2014 Overview (07/19/2015): Currently stable, off meds. - [facility]- psychiatry and counselor. -taking medicine CTS [...] Diagnosed Date Resolved Date Type 2 diabetes 11/19/2022 03/10/2023 Right upper quadrant abdominal pain 07/08/2020 11/19/2022 COVID-19 ruled out by laboratory testing 02/22/2020 11/19/2022 Overview (02/22/2020): COVID-19 Tracking [reviewed or updated 02/22/2020] Exposure to confirmed case or travel risk - Yes, Datejune Date that symptoms began - 02/15 Patient risk factors for severe COVID-19: Chronic lung disease (COPD, Cystic Fibrosis, ILD) or moderate to severe asthma Healthcare worker or first aid attendant? No COVID-19 Tested? - No Is patient ? No Elevated LFTs 01/24/2019 11/19/2022 Overview (01/24/2019): Managed by GI-last follow-up october 2018-?likely fatty liver disease, recommend weight loss Chronic gastritis without bleeding 12/28/2015 11/19/2022 History of thrombocytosis 12/28/2015 Acute right otitis media 11/28/2015 Gastritis 11/28/2015 11/19/2022 Cholecystitis, acute 11/20/2015 023 Overview (12/06/2015): Pt is admitted into [facility] for acute cholecystitis S/p lap cholecystectomy from [...] (04/07/2015): 10/24/13- was normal on patient at [facility]. 03/27/15- normal. Encounters Date Type Department Care Team Description 05/01/2025 3:00 PM EDT Office Visit [facility] [phone] [place] [address] Monteiro, Rosimar, PA-C from Last 3 Months Immunizations Immunization Administration Dates Next Due Flu, Preservative Free 06/13/2022,2020,06/02/2019,06/15 Flu, Recombinant, 18y+, Flublok 05/15/2023 Hep B,adult,adjuvanted (HEPLISAV) 11/19/2022, INFLUENZA, SEASONAL, INJECTA BLE, PRESERVATIVE FREE 07/29/2016,06/20/2015,06/20/2015 MMR (MMR II/Priorix) 12/04/2022 Moderna COVID-19 Vaccine, re d cap blue label, 12+ Primary Series 12/16/2020,11/16/2020 PNEUMOCOCCAL CONJUGATE PCV 13 11/19/2022 PNEUMOCOCCAL POLYSACCHARIDE PPV23 (Pneumovax 23) 06/02/2019 Pfizer-[employer]NTPower Electronics COVID-19 Vac cine Bivalent, (MORGAN PFIZER-BIONTECH COVID-19 [...] Never Smokeless Tobacco: Never Tobacco Cessation:Counseling Given: Yes Alcohol Use Standard Drinks/Week Comments No 0 (1 standard drink = 0.6 oz pur e alcohol) Social Connections Answer Date Recorded How often do you feel lonely or isolated from th ose around you? 1 05/08/2024 Financial Resource Strain Answer Date R ecorded Hard to pay for: Food 1 05/08/2024 Stress Answer Date Recorded Do you feel these kinds of stress these days? 05/08/2024 Physical Activity Answer Date Recorded Physical Activity 0 03/27/2019 Food Insecurity Answer Date Recorded Hard to pay for: Food 05/08/2024 Transportation Needs Answer Date Record ed Hard to pay for: Transportation 05/08/2024 Housing Stability Answer Date Recorded Hard to pay for: Rent/Mortgage payment 05/08/2024 Safety and Environment Answer Date Vimal rded How often does anyone, inclu ding family and friends, physically hurt you? 1 05/01/2025 Utilities Answer Date Recorded Hard to pay for: Utilities 1 05/08 Employment Answer Date Recorded Stress 0 10/27/2021 [...] Sign Reading Time Taken Comments Blood Pressure 136/83 05/01/2025 3:11 PM EDT Pulse 78 05/01/2025 3:11 PM EDT Temperature 36.9 C (98.4 F) 05/01/2025 3:11 PM EDT Respiratory Rate 16 05/01/2025 3:11 PM EDT Oxygen Saturation 98% 05/01/2025 3:11 PM EDT Inhaled Oxygen Concentration - - Weight 73 kg (161 lb) 05/01/2025 3:11 PM EDT Height 165.1 cm (5' 5 ) 05/01/2025 3:11 PM EDT Body Mass Index 26.79 05/01/2025 3:11 PM EDT Plan of Treatment Health Maintenance Due Date Last Done Comments Dental Examination 1976 HPV Screening 1976 Pap + HPV 1976 Medicare Annual Wellness Visit 1994 CT Colonography 2021 Colonoscopy 2021 Colorectal Cancer Screening 2021 FIT/gFOBT 2021 Fecal DNA 2021 Flexible Sigmoidoscopy 2021 Breast Cancer Screening (Mammogram) 11/25/2021 11/25/2020, 03/27/2015 (Managed by Outside Provider) Diabetes Screening 01/19/2025 01/20/2024, 0 01/20/2024, 03/11/2023, Additional history exists [id number] ( season) 2025 08/22/2022, 06/24/2022, 10/08/2021, Additional history exists Imm-Influenza (#1) 2025 06/13/2024, 1 , 06/13/2022, Additional history exists Anxiety Screening 05/08/2025 05/08/2024 Depression Monitoring 07/31/2025 05/01/2025 , 05/08/2024, 01/18/2024, Additional history exists Relationship Safety Screening/Counseling 05/01/2026 05/01/2025, 01/18/2024, 11/19/2022, Additional history exists Tobacco Screening 05/01/2026 05/01/2025, 11/19/2022 Lipid Screening 01/19/2027 01/20/2024, 11/07, 12/03/2021, Additional history exists Imm-Pneumococcal (3 of 3 - P CV20 or PCV21) 11/20/2027 11/19/2022, 06/02/2019 Imm-DTaP/Tdap/Td (3 - Td or Tdap) 06/19/2034 024, 04/26/2015 Pap Smear Discontinued 01/07/2015 (Christina davison by Outside Provider) Hepatitis C Screening Completed 01/26/2019, 018 Imm-Hepatitis B Completed 11/19/2022, 06/24/2022 HIV Screening Completed 01/20/2024, 0810/2022, 07/09/2020, Additional history exists Alcohol and Drug Screen Completed 05/01/20, 05/08/2024, 01/18/2024, Additional history exists Cervical Ablation/Cold-Knife Conization Discontinued Cervical Cancer Screening Discontinued Cervical Cryotherapy Discontinued Colposcopy Discontinued Endometrial Biopsy Discontinued Excision/Leep Discontinued HPV Genotyping Discontinued Vaginal Pap Discontinued Vulvoscopy Discontinued Goals Goal Patient Goal Type Associated Problems Recent Progress Patient-Stated? Author Have 3 meals a day Diet Not on track(09/04/19 10:22 AM PST) No Venecia Obrien RD Decrease soda or juice intake Diet No Venecia Obrien RD Increase physical activity Exercise Not on track(09/04/19 10:22 AM PST) No Venecia Obrien RD Procedures Procedure Name Priority Date/Time Associated Diagnosis Comments REFERRAL SCANNED DOCUMENT 05/03/2025 3:00 AM EDT HIV 1/2 AG & AB W/RFLX (4TH [...] Recently Relevant to Health Maintenance Results * REFERRAL SCANNED DOCUMENT (05/03/2025 3:00 AM EDT) 05/03/2025 3:00 AM EDT Juarez Monteiro PA-C SCAN REFERRAL Final Result * HIV 1/2 AG & AB W/RFLX (4TH GEN) (01/20/2024 8:59 AM EDT) HIV AG/AB, 4TH GEN NON-REAC TIVE NON-REAC TIVE [facility] Comment: HIV-1 antigen and HIV-1/HIV-2 antibodies were not detected. There is no laboratory evidence of HIV infection. PLEASE NOTE: This information has been disclosed to you from records whose confidentiality may be protected by state law. If your state requires such protection, then the state law prohibits you from making any further disclosure of the information without the specific written consent of the person to whom it pertains, or as otherwise permitted by law. A general authorization for the release of medical or other information is NOT sufficient for this purpose. For additional information please refer to http://education.Bebitos/faq/SCJ221 (This link is being provided for informational/ educational purposes only.) The performance of this assay has not been clinically validated in patients less than 2 years old. Blood Blood / Unknown 01/20/2024 8 :59 AM EDT 01/20/2024 8:59 AM EDT Narrative [facility] - 01/21/2024 5:29 AM EDT FASTING:YES Juarez Monteiro PA-C LAB - BLOOD DRAW Final Resul t Performing Organization Address [facility] Co de Phone Number [facility] [address] [address], [facility] [address] [address] * (ABNORMAL) LIPID PANEL (01/20/2024 8:59 AM EDT) [facility] Signature CHOLESTEROL, TOTAL 199 <200 mg/dL [facility] HDL CHOLESTEROL 46(L) > OR = 50 mg/dL [facility] TRIGLYCERIDES 127 <150 mg/dL [facility] LDL-CHOLESTEROL 129(H) 99 mg/dL (calc) [facility] Comment: Reference range: <100 Desirable range <100 mg/dL for primary prevention; <70 mg/dL for patients with CHD or diabetic patients with > or = 2 CHD risk factors. LDL-C is now calculated using the Dorian-Jie calculation, which is a validated novel method providing better accuracy than the Friedewald equation in the estimation of LDL-C. Dorian SS et al. CIRILO. 2013;310(19): 4676-4357 (http://education.Xierkang/faq/SDS072) CHOL/HDLC RATIO 4.3 <5.0 (calc) [facility] NON-HDL CHOLESTEROL 153(H) <130 mg/dL (calc) [facility] Comment: For patients with diabetes plus 1 major ASCVD risk factor, treating to a non-HDL-C goal of <100 mg/dL (LDL-C of <70 mg/dL) is considered a therapeutic option. Blood Blood / Unknown 01/20/2024 8 :59 AM EDT 01/20/2024 8:59 AM EDT Narrative [facility] - 01/21/2024 5:29 AM EDT FASTING:YES us Juarez LAZARO-Jan LAB - BLOOD DRAW Final Resul t Performing Organization Address City/[facility]/ZIP Co de Phone Number [facility] [address] [address], [facility] [address] [place] [address] * COMPREHENSIVE METABOLIC PANEL (01/20/2024 8:59 AM EDT) GLUCOSE 83 65 - 99 mg/dL [facility] Comment: Fasting reference interval UREA NITROGEN (BUN) 8 7 - 25 mg/dL [facility] CREATININE (blood) 0.66 0.50 - 0.99 mg/dL [facility] EGFR 109 > OR = 60 mL/min/1. 73m2 [facility] BUN/CREATININE RATIO SEE NOTE: [facility] Comment: Not Reported: BUN and Creatinine are within reference range. SODIUM 138 135 - 146 mmol/L [facility] POTASSIUM 4.2 3.5 - 5.3 mmol/L [facility] CHLORIDE 103 98 - 110 mmol/L [facility] CARBON DIOXIDE 29 20 - 32 mmol/L [facility] CALCIUM 8.9 8.6 - 10.2 mg/dL [facility] PROTEIN, TOTAL 6.9 6.1 - 8.1 g/dL [facility] ALBUMIN 4.1 3.6 - 5.1 g/dL [facility] GLOBULIN 2.8 1.9 - 3.7 g/dL (calc) [facility] ALBUMIN/GLOBULI N RATIO 1.5 1.0 - 2.5 (calc) [facility] BILIRUBIN, TOTAL 0.7 0.2 - 1.2 mg/dL [facility] ALKALINE PHOSPHATASE 107 31 - 125 U/L [facility] AST 14 10 - 35 U/L [facility] ALT 10 6 - 29 U/L [facility] Blood Blood / Unknown 01/20/2024 8 :59 AM EDT 01/20/2024 8:59 AM EDT Narrative [facility] - 01/21/2024 5:29 AM EDT FASTING:YES us Juarez Monteiro PA-C LAB - BLOOD DRAW Edited Resu lt - Final [facility] [address] [address], [facility] [address] [place] [address] * HISTORIC MAMMOGRAM (11/25/2020 12:00 AM EDT) Anatomical Region Laterality Modality Other 11/25/2020 Juarez Monteiro PA-C IMG MAMMO Final Result * HEPATITIS A,B,C PANEL (01/26/2019 11:18 AM EDT) HEPATITIS B SURFACE ANTIBODY NEGATIVE NEGATIVE [facility] HEPATITIS B SURFACE ANTIGEN NEGATIVE NEGATIVE [facility] Comment: Over the counter supplements containing high doses of biotin may interfere with this assay. If interference is suspected, patients shoud be retested after refraining from biotin supplements for 72 hours. HEPATITIS C VIRUS DIAGNOSTIC NEGATIVE NEGATIVE [facility] HEPATITIS B CORE ANTIBODY NEGATIVE NEGATIVE [facility] HEPATITIS A ANTIBODY TOTAL NEGATIVE NEGATIVE [facility] Comment: Over the counter supplements containing high doses of biotin may interfere with this assay. If interference is suspected, patients shoud be retested after refraining from biotin supplements for 72 hours. Blood specimen (specimen) Blood / Unknown 01/26/2019 11:18 AM EDT 01/26/2019 1:40 PM EDT Narrative [facility] - 01/26/2019 7:14 PM EDT [employer] [address] Health Screener - Helga Ortiz MD PT ID [id number] ORD# [id number] Siddhartha Long NP LAB - BLOOD DRAW [place] [address], from Last 3 Months or Most Recently Relevant to Health Maintenance Insurance [facility] Care Teams Audio Installer Relationship Specialty Start Date End Date Juarez Monteiro PA-C [address] [place] [address] PCP - General [facility] 11/12/20
== END 2025-05-08 08:46 | disposition home or self-care (01) ==
LOC: HO.HSMS 08:01
PROVIDERS: PCP Internal Medicine; Visit Provider Psychiatry & Neurology Neurology
DX: G43.719 Chronic migraine without aura, intractable, without status migrainosus (principal)
CPT/HCPCS: 64615

== ENCOUNTER → 2025-05-08 08:00 | Outpatient (BNVA) | payer OTHER, SELFPAY | PROVIDERS: PCP Internal Medicine; Visit Provider Psychiatry & Neurology Neurology | DX: G43.719 Chronic migraine without aura, intractable, without status migrainosus (principal) | CPT/HCPCS: 64615; 99211; J0585 ==

== ENCOUNTER 2025-05-29 13:07 | Outpatient (AMB) | payer OTHER, SELFPAY ==
[2025-05-29 13:08] VITALS: BP 144/80; PULSE 86; O2SAT 99; BMI 25.7
--- NOTE | 2025-05-29 13:08 | A.OFFVIS_ITS ---
Vital Signs 05/29/25 13:08 Height 5 ft 6 in Weight 159 lb BMI 25.7 BP 144/80 H Position Sitting Pulse 86 Pulse Source Pulse Oximeter Pulse Oximetry (%) 99 Oxygen Delivery Method Room Air Intake Visit Reasons: 6 mnts f/u appt Intake Note: Patient presents 7 month follow up for migraines. Data Security Coordinator Required: No Data Security Coordinator Services: Data Security Coordinator Offered & Declined Accompanied by: Self / Same As Patient Allergies gabapentin Allergy (Severe, Verified 05/29/25 13:11) Nausea and Vomiting shrimp Allergy (Severe, Verified 05/29/25 13:11) Nausea and Vomiting Medication List - Last Reconciled 05/29/25 by EMERALD Randall acetaminophen 500 mg PO Q6H PRN albuterol sulfate 90 mcg/actuation 2 puffs inhalation Q4H PRN 90 days baclofen 1 tab bid and 2 tabs qhs orally bedtime PRN; 30 days benzonatate 200 mg PO BID PRN 30 days cholecalciferol (vitamin D3) 50 mcg PO DAILY 30 days trjckunjhnb-dvfqdpbnz-wrizwkjq 200-62.5-25 mcg (Trelegy Ellipta) 1 inh inhalation DAILY 30 days ibuprofen 600 mg PO Q6H PRN 14 days ipratropium-albuterol 0.5 mg-3 mg(2.5 mg base)/3 mL mL inhalation lidocaine 5% (Lidoderm) 1 patch topical DAILY 30 days loratadine 10 mg PO DAILY 30 days magnesium oxide 400 mg PO DAILY 30 days metoprolol tartrate 25 mg PO BID nebulizers As directed omeprazole 40 mg PO BID onabotulinumtoxinA (Botox) 200 units IM ONCE 12 weeks pregabalin (Lyrica) 300 mg PO BID 30 days ubrogepant 100 mg orally 1 tab at onset of migraine, may repeat in 2 hrs (max 200mg/day) PRN; 32 days verapamil ER 240 mg PO DAILY 30 days HPI Comments Details: 48-yr-old female presents for f/u visit. Pt denies any significant interval medical changes. She reports that overall her migraine attacks are well controlled on her current migraine preventative regimen, including Botox and verapamil. However, she notices periods of increased photophobia during and between migraine attacks. She experiences 1-2 migraine days per week, which are responsive to her acute medication. She experiences right-sided occipital headache occurs at times, not as severe, but bothersome. Her RLS are overall stable on pregabalin and magnesium. When she is more active, she may have more restlessness- or feeling like legs are falling asleep or creepy crawling sensation. Baseline headache characteristics: * Migraine: Usually mod-severe right sided, can be left sided, pressure/throbbing pain a/w photophobia, phonophobia, tiredness, cognitive difficulties. * Right occipital headache: a severe right sided neck to occipital region, shooting, pulsating radiating pain. This may start in the neck or the upper occipital region. A/w photophobia and allodynia. [facility] Medical History Chronic migraine without aura, intractable, without status migrainosus JEWEL (obstructive sleep apnea) Chronic migraine without aura Hypergammaglobulinemia Thrombocytosis Long-term use of Plaquenil COVID-19 Carpal tunnel syndrome on both sides Cataract Pre-op chest exam JEWEL on CPAP Chronic restrictive lung disease LAVONNE positive Bronchitis, asthmatic Dyspnea Chest pain Surgical History H/O elbow surgery Hx of cataract extraction History of carpal tunnel release of both wrists Hx of section Hx of tubal ligation Hx of cholecystectomy H/O: hysterectomy Family History Mother Diabetes HTN (hypertension) CVD (cardiovascular disease) Ovarian cancer Father HTN (hypertension) CVD (cardiovascular disease) Maternal Grandfather Stomach cancer Maternal Uncle Lung cancer Mother Rheumatoid arthritis Social History Household Members: Children Alcohol intake: never Patient Tobacco Use Status: Never used Tobacco Current occupational status: disabled Female Reproductive History Menstrual Age of Menarche: 13 Physical Exam Vital Signs: Last Vital Signs Pulse 86 05/29/25 13:08 BP 144/80 H 05/29/25 13:08 Pulse Ox 99 05/29/25 13:08 Oxygen Delivery Method Room Air 05/29/25 13:08 BMI result Body Mass Index 25.7 Const General: cooperative and no acute distress Orientation/consciousness: patient oriented x3 HEENT Head: Yes normocephalic Back/Spine/Pelvis Other: Left paraspinal tenderness. Neuro General: patient oriented x3 and CN's II-XI intact bilaterally Cognition (Neuro): normal cognition Gait exam (Neuro): Normal gait present Motor exam (neuro): 5/5 motor strength present throughout Assessment & Plan Assessment & Plan (1) Chronic migraine without aura, intractable, without status migrainosus: Code(s): G43.719 - Chronic migraine without aura, intractable, without status migrainosus Category: Medical (2) Cervicalgia of sljuawgu-ltrlnbh-phpcv region: Code(s): M54.2 - Cervicalgia Category: Medical (3) Restless leg syndrome: Code(s): G25.81 - Restless legs syndrome Category: Medical (4) JEWEL (obstructive sleep apnea): Code(s): G47.33 - Obstructive sleep apnea (adult) (pediatric) Category: Medical (5) Chronic migraine without aura: Code(s): G43.709 - Chronic migraine without aura, not intractable, without status migrainosus Category: Medical Qualifiers: Status migrainosus presence: without status migrainosus Intractability: intractable Qualified Code(s): G43.719 - Chronic migraine without aura, intractable, without status migrainosus Plan For right occipital neuralgia s/s, left upper trap discomfort, cervicalgia, and history of left facial pain: Continue baclofen 10 mg 1 to 2 times a day and 20 mg at bedtime p.r.n. Continue pregabalin 300 mg twice a day Future considerations: Referral to pain management for evaluation for possible nerve block and trigger point injections. ? For chronic migraine prevention: Continue Botox. Continue Verapamil SR 240 mg bid. Continue metoprolol- ordered primarily for palpitations. For acute migraine treatment: Continue Ubrogepant (Ubrelvy) 100mg tab, 1/2 - 1 tab (50-100mg) at onset of headache, may repeat in 2 hours. Max of 2 tabs (200mg) per 24 hours. * May take Ubrelvy with OTC Tylenol 650mg q 4 hours, Ibuprofen 600mg q 6 hours, or Naproxen 440mg q 12 hrs prn. Previous acute trials: Sumatriptan, Rizatriptan- ineffective. ? For RLS- Continue Lyrica, Baclofen, Magnesium Discussed nonpharmacological interventions, such as mild stretching in the evening, weighted blanket, Nidra neurostimulation device. We will recheck labs for common underlying etiologies. Previous trials- Requip. Gabapentin caused nausea and vomiting ? For JEWEL- May continue to hold CPAP (previous setting: CPAP 4.4 cmH2O). Hold HST study. Follow-up in 6 months or sooner as needed Orders: Orders Complete Blood Count Auto Diff Today D64.9 - Anemia, unspecified, M35.9 - Systemic involvement of connective tissue, unspecified IRON PROFILE Today D64.9 - Anemia, unspecified, M35.9 - Systemic involvement of connective tissue, unspecified Ferritin Today D64.9 - Anemia, unspecified, M35.9 - Systemic involvement of connective tissue, unspecified Vitamin B12 and Folate Today D64.9 - Anemia, unspecified, M35.9 - Systemic involvement of connective tissue, unspecified Erythrocyte Sedimentation Rate Today D64.9 - Anemia, unspecified, M35.9 - Systemic involvement of connective tissue, unspecified Comprehensive [place]. Panel Fast Today D64.9 - Anemia, unspecified, M35.9 - Systemic involvement of connective tissue, unspecified C Reactive Protein Today D64.9 - Anemia, unspecified, M35.9 - Systemic involvement of connective tissue, unspecified Medications: Refilled baclofen 1 tab bid and 2 tabs qhs orally bedtime PRN; 120 tabs 3RF muscle spasm 30 days pregabalin (Lyrica) 300 mg PO BID 60 caps 4RF 30 days ubrogepant 100 mg orally 1 tab at onset of migraine, may repeat in 2 hrs (max 200mg/day) PRN; 16 tabs 6RF migraine headache 32 days verapamil ER 240 mg PO DAILY 30 caps 6RF 30 days Coding Level of Care Code Est Pt Level 4 (54995) Diagnoses Chronic migraine without aura, intractable, without status migrainosus G43.719 Cervicalgia of ndltgbwk-pfvtccr-jqgfh region M54.2 Restless leg syndrome G25.81 JEWEL (obstructive sleep apnea) G47.33 Intractable chronic migraine without aura and without status migrainosus G43.719 Status migrainosus presence: without status migrainosus Intractability: intractable
--- OUTSIDE RECORDS SUMMARY | 2025-05-29 14:30 | XMS_ITS | Encounter Summary ---
Author Organization [facility] Address [address] [place] [address] Care Team Providers Care Mobile Ui Designer Name Role Phone Juarez Monteiro Primary Care Provider [phone] Reason for Referral * Consultation (Routine) - Pending Review Specialty Diagnoses / Procedures Referred By Estephanie steinberg Referred To Contact Occupational Therapy Diagnoses Cubital tunnel syndrome of both upper extremities Jacquelyn Oates MD [address] [place] [address] Phone: tel: fax: Referral ID Status Reason Start Date Expiration Date Visits Requested Visits Authorized [id number] Pending Review Specialty Services Required 05/29/2026 1 1 Reason for Visit * Reason Comments Follow-up Pain localized in fo rearm, numbness in fingers/hands Encounter Details Date Type Department Care Team (Late st Contact Info) Description 05/29/2025 2:30 PM EDT Office Visit Orthopedic Surgery - Echo [address] [facility] [address] [place] [address] Jacquelyn Oates MD [address] [place] [address] Cubital tunnel syndrome of both upper extremities (Primary Dx) Social History Tobacco Use Types Packs/Day Years Used Date Smoking Tobacco: Never Smokeless Tobacco: Never Alcohol Use Standard Drinks/Week Comments Never 0 (1 standard drink = 0.6 oz pur e alcohol) Comments Unknown Sex and Gender Information Value Date Recorded Sex Assigned at Not on file Legal Sex Female 12:40 PM EST Gender Identity Not on file Sexual Orientation Not on file documented as of this encounter Last Filed Vital Signs Vital Sign Reading Time Taken Comments Blood Pressure - - Pulse - - Temperature - - Respiratory Rate - - Oxygen Saturation - - Inhaled Oxygen Concentration - - Weight 71.2 kg (157 lb) 05/29/2025 2:39 PM EDT Height 167.6 cm (5' 6 ) 05/29/2025 2:39 PM EDT Body Mass Index 25.34 05/29/2025 2:39 PM EDT documented in this encounter Plan of Treatment Scheduled Referrals Name Type Priority Associated Diagnoses Order Schedule Ambulatory referral to Occupational Therapy Outpatient Referral Routine Cubital tunnel syndrome of both upper extremities 1 Occurrences starting 05/29/2025 until 05/29/2026 documented as of this encounter Visit Diagnoses Diagnosis Cubital tunnel syndrome of both upper extremities- Primary documented in this encounter Care Teams Mobile Ui Designer Relationship Specialty Start Date End Date Juarez Monteiro PA [address] [place] [address] PCP - General 05/09/25 documented as of this encounter
--- OUTSIDE RECORDS SUMMARY | 2025-05-29 16:59 | XMS_ITS | Clinical Summary ---
Author Organization [facility] Address [address] [place] [address] Care Team Providers Care Print Color Operator Name Role Phone Angelique Soni Primary Care Provider [phone] Allergies Active Allergy Reactions Criticality Noted Date [...] age to complete this topic Care Teams Print Color Operator Relationship Specialty Start Date End Date Angelique Soni [address] [place] [address] PCP - General Family Medicine 03/25/23
--- OUTSIDE RECORDS SUMMARY | 2025-05-29 16:59 | XMS_ITS | Clinical Summary ---
Author Organization [facility] Address [address] [place] [address] Phone Care Team Providers Care Pet Supplies Salesperson Name Role Phone Juarez Monteiro Primary Care Provider [phone] Allergies Active Allergy Reactions Criticality Noted Date Comments Gabapentin Anaphylaxis,Itching, Nausea And Vomiting High 05/24/2020 Shrimp Swelling 05/20/2023 Medications omeprazole (PriLOSEC) [address] capsule Take 1 capsule (40 mg total) by mouth 1 (one) time each day. Active lidocaine (LIDODERM) 5 % patch Place 1 patch on the skin 1 (one) time each day. Active magnesium oxide (MAG-OX) 400 mg (241.3 elemental magnesium) tablet Take 1 tablet (400 mg total) by mouth 1 (one) time each day. Active montelukast (SINGULAIR) 10 mg tablet Take 1 tablet (10 mg total) by mouth at bedtime. Active ipratropium-alb uteroL (DUONEB) 0.5-2.5 mg/3 mL nebulizer solution Inhale 3 mL by mouth 4 (four) times a day. Active metoprolol tartrate (LOPRESSOR) 25 mg tablet Take 1 tablet (25 mg total) by mouth 2 (two) times a day. 4 Active verapamil SR (CALAN-SR) 240 mg CR tablet Take 1 tablet (240 mg total) by mouth at bedtime. Active hydroquinone (RIGOBERTO) 4 % cream Apply topically 1 (one) time each day if needed. Active loratadine (CLARITIN) 10 mg tablet Take 1 tablet (10 mg total) by mouth 1 (one) time each day. 4 Active cholecalciferol (VITAMIN D-3) 25 mcg (1,000 unit) tablet Take 1 tablet (1,000 Units total) by mouth 1 (one) time each day. Active acetaminophen (TYLENOL) 500 mg tablet Take 1 tablet (500 mg total) by mouth every 6 (six) hours if needed. Active ibuprofen (ADVIL,MOTRIN) 800 mg tablet Take 1 tablet (800 mg total) by mouth every 8 (eight) hours if needed. Active onabotulinumtox Ayesha (BOTOX) 200 unit injection Inject 200 Units as directed every 3 (three) months. Active pregabalin (LYRICA) 300 mg capsule Take 1 capsule (300 mg total) by mouth 2 (two) times a day. Active metoprolol succinate (TOPROL-XL) 25 mg 24 hr tablet Take 1 tablet (25 mg total) by mouth 1 (one) time each day. Active fluticasone-ume clidinium-vilan terol (Trelegy Ellipta) 200-62.5-25 mcg inhaler Inhale 1 puff (200 mcg total) by mouth 1 (one) time each day. Active baclofen (LIORESAL) 10 mg tablet Take 1 tablet (10 mg total) by mouth 2 (two) times a day. Active ubrogepant (UBRELVY) 100 mg tablet Take 1 tablet (100 mg total) by mouth 1 (one) time if needed for migraine. Active polyvinyl alcohol (ARTIFICIAL TEARS) 1.4 % ophthalmic solution Administer 1 drop into both eyes. Active albuterol HFA (PROAIR HFA ; PROVENTIL HFA ; VENTOLIN HFA) 90 mcg/actuation inhaler Inhale 2 puffs by mouth every 4 (four) hours if needed. Active Encounters Date Type Department Care Team Description 05/29/2025 2:30 PM EDT Office Visit Orthopedic Surgery - [address] [place] [address] Jacquelyn Oates MD Cubital tunnel syndrome of both upper extremities (Primary Dx) 05/09/2025 Telephone Gastroenterology - [address] [place] [address] Christina Rodriguez MD from Last 3 Months Immunizations Immunization Administration Dates Next Due Moderna SARS-CoV-2 COVID-19, mRNA, LNP-S, preservative free 12/16/2020,11/16/2020 Surgical History Surgery Date Site/Laterality Comments CHOLECYSTECTOMY PROCEDURE: HISTORICAL CHOLECYSTECTOMY HYSTERECTOMY 08/09/2011 PROCEDURE: HISTORICAL HYSTERECTOMY CARPAL TUNNEL RELEASE Bilateral PROCEDURE: HISTORICAL CARPAL TUNNEL REL OTHER SURGICAL HISTORY PROCEDURE: HISTORY OTHER; COMMENT: Uterine Fibroid COLONOSCOPY 04/25/2019 PROCEDURE: HISTORICAL COLONOSCOPY OTHER SURGICAL HISTORY 04/25/2019 PROCEDURE: IN EGD PARTIAL/COMPL ESOPHAGOGASTRIC FUNDOPLASTY SECTION PROCEDURE: HISTORICAL DELIVERY; COMMENT: x2 - 1996 & 2009 ELBOW SURGERY 08/09/2020 - 08/08/2021 Left ulnar decompression Medical History Medical History Date Comments Hyperlipidemia [...] Blood Pressure 118/80 12/07/2023 7:41 AM EDT Sit ting R Arm Pulse 86 12/07/2023 7:41 AM EDT Temperature - - Respiratory Rate - - Oxygen Saturation - - Inhaled Oxygen Concentration - - Weight 71.2 kg (157 lb) 05/29/2025 2:39 PM EDT Height 167.6 cm (5' 6 ) 05/29/2025 2:39 PM EDT Body Mass Index 25.34 05/29/2025 2:39 PM EDT Plan of Treatment Health Maintenance Due Date Last Done Comments Breast Cancer Screening 1976 Colorectal Cancer Screening: Colonoscopy 1976 Cervical Cancer Screening: Pap Smear 1997 HIV Screening 07/18/2022 Social Influencers of Health Screening 07/18/2022 Depression Screening 08/09/2024 Hypertension/CHF/CAD Annual BMP Blood Test 01/19/2025 01/20/2024 COVID-19 Vaccine ( season) 2025 08/22/2022, 06/24/2022, 10/08/2021, Additional history exists Influenza Vaccine (#1) 2025 , 05/15/2023, 06/13/2022, Additional history exists Pneumococcal Vaccine: Pediatrics (0 to 5 Years) and At-Risk Patients (6 to 49 Years) (3 of 3 - PCV20 or PCV21) 11/20/2027 11/19/2022, 06/02/2019 Cholesterol Screening (Lipid Panel) 01/19/2029 01/20/2024, 01/20/2024, 12/03/2021, Additional history exists DTaP,Tdap,and Td Vaccines (3 - Td or Tdap) 06/19/2034 06/19/2024, 04/26/2015 RSV Immunization Adult Patients (1 - 1-dose 75+ series) 2051 Hepatitis C Screening Completed 04/04/2018 Hepatitis B Vaccines Completed 11/19/2022, 06/24/20 22 MMR Vaccines Aged Out 12/04/2022 No longer eligi ble based on patient's age to complete this topic HIB Vaccines Aged Out No longer eligi [...] 20 months Aged Out No longer eligible based on patient's age to complete this topic Varicella Vaccines Aged Out No longer eligible based on patient's age to complete this topic Insurance [facility] Member Subscriber Plan / Payer (Ef fective 2019-Present) Name:DAYANA WATTS Relation to Subscriber:Self Name:Dayana Munoz Payer ID:[id number] Group ID:[id number] Type:Not on file Address: [address] [place] [id number] [place] [facility] [place] [id number] Care Teams Pet Supplies Salesperson Relationship Specialty Start Date End Date Juarez Monteiro PA [address] [place] [address] PCP - General 05/09/25
--- OUTSIDE RECORDS SUMMARY | 2025-05-29 16:59 | XMS_ITS | Clinical Summary ---
Author Organization [facility] Address [address] [place] [address] Care Team Providers Care Gas Usage Meter Clerk Name Role Phone Juarez Monteiro PA-C Primary [...] elsewhere 11/19/2022 Overview (11/19/2022): Seeing Rheumatology at [facility] rheumatology Alfred, currently on hydroxychloroquine 200mg BID [...] Overview (07/19/2015): Currently stable, off meds. - [facility]- psychiatry and counselor. -taking medicine CTS [...] moderate to severe asthma Healthcare worker or manufacturing worker? No COVID-19 Tested? - No Is patient ? No Elevated LFTs 01/24/2019 11/19/2022 Overview (01/24/2019): Managed by GI-last follow-up october 2018-?likely fatty liver disease, recommend weight loss Chronic gastritis without bleeding 12/28/2015 11/19/2022 History of thrombocytosis 12/28/2015 Acute right otitis media 11/28/2015 Gastritis 11/28/2015 11/19/2022 Cholecystitis, acute 11/20/2015 023 Overview (12/06/2015): Pt is admitted into [facility] for acute cholecystitis S/p lap cholecystectomy [...] (04/07/2015): 10/24/13- was normal on patient at [facility]. 03/27/15- normal. Encounters Date Type Department Care Team Description 05/01/2025 3:00 PM EDT Office Visit [facility] [address] [place] [address] Monteiro, Rosimar, PA-C from Last 3 Months Immunizations Immunization Administration Dates Next Due Flu, Preservative Free 06/13/2022,2020,06/02/2019,06/15 Flu, Recombinant, 18y+, Flublok 05/15/2023 Hep B,adult,adjuvanted (HEPLISAV) 11/19/2022, INFLUENZA, SEASONAL, INJECTA BLE, PRESERVATIVE FREE 07/29/2016,06/20/2015,06/20/2015 MMR (MMR II/Priorix) 12/04/2022 Moderna COVID-19 Vaccine, re d cap blue label, 12+ Primary Series 12/16/2020,11/16/2020 PNEUMOCOCCAL CONJUGATE PCV 13 11/19/2022 PNEUMOCOCCAL POLYSACCHARIDE PPV23 (Pneumovax 23) 06/02/2019 Pfizer-BioNT[employer]Iron Software COVID-19 Vac cine Bivalent, (MORGAN PFIZER-BIONTECH COVID-19 [...] Done Comments Dental Examination 1976 HPV Screening (self-collect) 1976 HPV Screening 1976 Pap + HPV 1976 Medicare Annual Wellness Visit 1994 CT Colonography 2021 Colonoscopy 2021 Colorectal Cancer Screening 2021 FIT/gFOBT 2021 Fecal DNA 2021 Flexible Sigmoidoscopy 2021 Breast Cancer Screening (Mammogram) 11/25/2021 11/25/2020, 03/27/2015 (Managed by Outside Provider) Diabetes Screening 01/19/2025 01/20/2024, 0 01/20/2024, 03/11/2023, Additional history exists Arp-EDKYX-08 ( season) 2025 08/22/2022, 06/24/2022, 10/08/2021, Additional [...] Completed 11/19/2022, 06/24/2022 HIV Screening Completed 01/20/2024, 10/2022, 07/09/2020, Additional history exists Alcohol and Drug Screen Completed 05/01/20, 05/08/2024, 01/18/2024, Additional history exists Cervical Ablation/Cold-Knife Conization Discontinued Cervical Cancer Screening Discontinued Cervical Cryotherapy Discontinued Colposcopy Discontinued Excision/Leep Discontinued HPV Genotyping Discontinued Vaginal [...] AG/AB, 4TH GEN NON-REAC TIVE NON-REAC TIVE [facility] Comment: HIV-1 antigen and HIV-1/HIV-2 antibodies [...] purpose. For additional information please refer to http://education.Orbotix.Cat Amania/faq/BIV426 (This link is being provided for informational/ educational purposes only.) The performance of this assay has not been clinically validated in patients less than 2 years old. Blood Blood / Unknown 01/20/2024 8 :59 AM EDT 01/20/2024 8:59 AM EDT Narrative [facility] - 01/21/2024 5:29 AM EDT FASTING:YES Juarez Monteiro PA-C LAB - BLOOD DRAW Final Resul t Performing Organization Address [facility] Co de Phone Number [facility] [address] [address], [facility] [address] [address] * (ABNORMAL) LIPID PANEL (01/20/2024 8:59 AM EDT) [facility] CHOLESTEROL, TOTAL 199 <200 mg/dL [facility] HDL CHOLESTEROL 46(L) > OR = 50 mg/dL [facility] TRIGLYCERIDES 127 <150 mg/dL [facility] LDL-CHOLESTEROL 129(H) 99 mg/dL (calc) [facility] Comment: Reference range: <100 Desirable range <100 mg/dL for primary prevention; <70 mg/dL for patients with CHD or diabetic patients with > or = 2 CHD risk factors. LDL-C is now calculated using the Dorian-Jie calculation, which is a validated novel method providing better accuracy than the Friedewald equation in the estimation of LDL-C. Dorian SS et al. CIRILO. 2013;310(19): 1012-1501 (http://education.P4RC/faq/MNT359) CHOL/HDLC RATIO 4.3 <5.0 (calc) [facility] NON-HDL CHOLESTEROL 153(H) <130 mg/dL (calc) [facility] Comment: For patients with diabetes plus 1 major ASCVD risk factor, treating to a non-HDL-C goal of <100 mg/dL (LDL-C of <70 mg/dL) is considered a therapeutic option. Blood Blood / Unknown 01/20/2024 8 :59 AM EDT 01/20/2024 8:59 AM EDT Narrative [facility] - 01/21/2024 5:29 AM EDT FASTING:YES us Juarez Monteiro PA-C LAB - BLOOD DRAW Final Resul t [facility] [address] [address], [facility] [address] [place] [address] * COMPREHENSIVE METABOLIC PANEL (01/20/2024 8:59 AM EDT) GLUCOSE 83 65 - 99 mg/dL [facility] Comment: Fasting reference interval UREA NITROGEN (BUN) 8 7 - 25 mg/dL [facility] CREATININE (blood) 0.66 0.50 - 0.99 mg/dL [facility] EGFR 109 > OR = 60 mL/min/1. 73m2 [facility] BUN/CREATININE RATIO SEE NOTE: [facility] Comment: Not Reported: BUN and Creatinine are within reference range. SODIUM 138 135 - 146 mmol/L [facility] POTASSIUM 4.2 3.5 - 5.3 mmol/L [facility] CHLORIDE 103 98 - 110 mmol/L [facility] CARBON DIOXIDE 29 20 - 32 mmol/L [facility] CALCIUM 8.9 8.6 - 10.2 mg/dL [facility] PROTEIN, TOTAL 6.9 6.1 - 8.1 g/dL [facility] ALBUMIN 4.1 3.6 - 5.1 g/dL [facility] GLOBULIN 2.8 1.9 - 3.7 g/dL (calc) [facility] ALBUMIN/GLOBULI N RATIO 1.5 1.0 - 2.5 (calc) [facility] BILIRUBIN, TOTAL 0.7 0.2 - 1.2 mg/dL [facility] ALKALINE PHOSPHATASE 107 31 - 125 U/L [facility] AST 14 10 - 35 U/L [facility] ALT 10 6 - 29 U/L [facility] Blood Blood / Unknown 01/20/2024 8 :59 AM EDT 01/20/2024 8:59 AM EDT Narrative [facility] - 01/21/2024 5:29 AM EDT FASTING:YES Juarez Monteiro PA-C LAB - BLOOD DRAW Edited Resu lt - Final [facility] [address] [address], [facility] [address] [address] * HISTORIC MAMMOGRAM (11/25/2020 12:00 AM EDT) Anatomical Region Laterality Modality Other 11/25/2020 Juarez Monteiro PA-C IMG MAMMO Final Result * HEPATITIS A,B,C PANEL (01/26/2019 11:18 AM EDT) HEPATITIS B SURFACE ANTIBODY NEGATIVE NEGATIVE [facility] HEPATITIS B SURFACE ANTIGEN NEGATIVE NEGATIVE [facility] Comment: Over the counter supplements containing high doses of biotin may interfere with this assay. If interference is suspected, patients shoud be retested after refraining from biotin supplements for 72 hours. HEPATITIS C VIRUS DIAGNOSTIC NEGATIVE NEGATIVE [facility] HEPATITIS B CORE ANTIBODY NEGATIVE NEGATIVE [facility] HEPATITIS A ANTIBODY TOTAL NEGATIVE NEGATIVE [facility] Comment: Over the counter supplements containing high doses of biotin may interfere with this assay. If interference is suspected, patients shoud be retested after refraining from biotin supplements for 72 hours. Blood specimen (specimen) Blood / Unknown 01/26/2019 11:18 AM EDT 01/26/2019 1:[address] [facility] - 01/26/2019 7:14 PM EDT [employer], [place] [address] [employer] - Helga Ortiz MD [place] ID [id number] ORD# [id number] Siddhartha Long NP LAB - BLOOD DRAW Edited Result - Final [address] [address], from Last 3 Months or Most Recently Relevant to Health Maintenance Insurance [facility] Care Teams Gas Usage Meter Clerk Relationship Specialty Start Date End Date Juarez Monteiro PA-C [address] [place] [address] PCP - General FAMILY MEDICINE PA 11/12/20
== END 2025-05-29 13:50 | disposition home or self-care (01) ==
LOC: HO.HSMS 13:08
PROVIDERS: PCP Internal Medicine; Visit Provider Nurse Practitioner Family
DX: G43.719 Chronic migraine without aura, intractable, without status migrainosus (principal); M54.2 Cervicalgia; G25.81 Restless legs syndrome; G47.33 Obstructive sleep apnea (adult) (pediatric)
CPT/HCPCS: 99214

== ENCOUNTER → 2025-05-29 13:07 | Outpatient (BNVA) | payer OTHER, SELFPAY | PROVIDERS: PCP Internal Medicine; Visit Provider Nurse Practitioner Family | DX: G43.719 Chronic migraine without aura, intractable, without status migrainosus (principal); M54.2 Cervicalgia; G25.81 Restless legs syndrome; G47.33 Obstructive sleep apnea (adult) (pediatric) | CPT/HCPCS: 99212 ==

== ENCOUNTER 2025-06-12 14:31 | Outpatient (AMB) | payer OTHER, SELFPAY ==
--- NOTE | 2025-06-12 14:37 | A.OFFVIS_ITS ---
Vital Signs 06/12/25 14:38 Height 5 ft 6 in Weight 158 lb 11.725 oz BMI 25.6 BP 114/70 Blood Pressure Location Lt brachial Position Sitting Pulse 82 Pulse Source Pulse Oximeter Pulse Oximetry (%) 100 Oxygen Delivery Method Room Air Intake Visit Reasons: Asthma Hand Scudder Required: No Accompanied by: Self / Same As Patient Allergies gabapentin Allergy (Severe, Verified 06/12/25 14:40) Nausea and Vomiting shrimp Allergy (Severe, Verified 06/12/25 14:40) Nausea and Vomiting HPI Comments Details: The patient is a 49-year-old woman with a known history of obstructive sleep apnea who apparently was in the usual state health until September of 2019. During that time she became briefly ill with respiratory illness. The patient is very symptomatic with significant coughing shortness of breath and also was noted to be wheezing at that time. Since then the patient has had ongoing symptoms which vary from shortness breath and cough. Her cough tends to be nonproductive in nature. At times he had been croupy. Due to the significant coughing she has not been able to tolerate her CPAP therapy. Prior to this illness she was using her CPAP without any difficulties. Subsequently after that she was tested for COVID and her swab was negative. Although she is pretty sure that she had COVID when she was significantly ill back in September. Now she complains of chest discomfort the sometimes radiates to her back along with shortness of breath and she has been noted to be significantly tachycardic. She had been evaluated at [facility] in her blood work has been relatively unremarkable. She had a chest x-ray back in February which was read as no acute disease and also personally reviewed and agreed. 06/13/2024 the patient is here for a pulmonary follow-up visit. Overall the patient continues to have significant weight loss after her bariatric surgery. She has not been using her CPAP at this time. Denies any significant daytime drowsiness, EPWORTH is 7/24. She had been dealing with a significant dry cough. Likely Pertussis. She was evaluated ans treated by her PCP. Now she is feeling better. She had a CXR back in the spring 2023 which was normal, no need for additional CXR at this time, unless her symptoms reoccur. She continue to brandon her respiratory therapy as prescribed. 06/12/2025 the patient is here for pulmonary follow-up visit. The patient overall has been doing well. She will reach her ideal weight. The patient although did have surgery about 3 months ago. After that she has had shortness of breath. Specially when going up a flight of stairs. Moderate severity. We did do stairs here today we went up 4 flights of stairs with a pulse ox and heart rate did go up to about 115 beats per minute she was visibly dyspneic with a dyspnea score of 6/10. Her oxygen was actually at% pulse ox throughout the ambulation. She did not have any wheezing on exam which is reassuring. She is back using the Trelegy and seems to be effective. If she wants to try something else that is not powder we can also try Breztri in the future. But for now she will stay on the Trelegy since is working for her. The patient does not been using CPAP and she has been doing well with an Sheffield score that is 6/24 therefore will hold off on any type of sleep studies at this time. The patient was going to work on exercise routine and also will get blood work specially to make sure she is not anemic with her dyspnea symptoms. [facility] Medical History (Updated 05/29/25 @ 13:44 by EMERALD Randall) Anemia Chronic migraine without aura, intractable, without status migrainosus JEWEL (obstructive sleep apnea) Chronic migraine without aura Hypergammaglobulinemia Thrombocytosis Long-term use of Plaquenil COVID-19 Carpal tunnel syndrome on both sides Cataract Pre-op chest exam JEWEL on CPAP Chronic restrictive lung disease LAVONNE positive Bronchitis, asthmatic Dyspnea Chest pain Surgical History H/O elbow surgery Hx of cataract extraction History of carpal tunnel release of both wrists Hx of section Hx of tubal ligation Hx of cholecystectomy H/O: hysterectomy Family History Mother Diabetes HTN (hypertension) CVD (cardiovascular disease) Ovarian cancer Father HTN (hypertension) CVD (cardiovascular disease) Maternal Grandfather Stomach cancer Maternal Uncle Lung cancer Mother Rheumatoid arthritis Social History Household Members: Children Alcohol intake: never Patient Tobacco Use Status: Never used Tobacco Current occupational status: disabled Female Reproductive History Menstrual Age of Menarche: 13 Review of Systems Const Denies daytime sleepiness, Denies headache(s), Denies night sweats and Reports weight loss Eyes Denies change in vision ENT Denies change in voice, Denies headache(s), Denies lip swelling, Denies mouth pain, Reports nasal congestion, Reports nasal discharge, Reports neck pain and Denies tongue swelling Card Denies chest pain, Denies dyspnea and Reports dyspnea on exertion Resp Denies change in phlegm color, Denies chest congestion, Reports cough, Denies hemoptysis, Denies dyspnea and Reports dyspnea on exertion GI Reports dyspepsia and Reports heartburn Musc Reports back pain, Reports myalgias, Reports arthralgias and Reports neck pain Neuro Denies Neuro-related abnormal movements and Denies headache(s) Psych Denies no additional complaints Arthur/Lymph Denies easy bleeding and Denies lymphadenopathy Aller/Immun Denies lip swelling and Denies tongue swelling Physical Exam Vital Signs: Last Vital Signs Pulse 82 06/12/25 14:38 BP 114/70 06/12/25 14:38 Pulse Ox 100 06/12/25 14:38 Oxygen Delivery Method Room Air 06/12/25 14:38 BMI result Body Mass Index 25.6 Const General: cooperative and no acute distress Nutritional Appearance: well nourished Orientation/consciousness: patient oriented x3 HEENT Head: Yes normocephalic Neck Neck: Yes normal visual inspection, Yes full ROM and Yes no lymphadenopathy Chest Chest palpation & inspection: tenderness Resp Effort & Inspection: normal respiratory effort and able to speak in complete sentences Auscultation: clear to auscultation bilaterally Cardio Rate: regular rate Rhythm: regular rhythm Heart sounds: S1 normal heart sound present and S2 normal heart sound present GI Palpation (GI): Soft to palpation Auscultation: normal bowel sounds Skin General skin exam: no rashes or lesions noted Neuro Other: Mild posterior cervical tightness. General: patient oriented x3, gait normal and CN's II-XI intact bilaterally Cognition (Neuro): normal cognition Motor exam (neuro): 5/5 motor strength present throughout Psych Appearance: grossly normal Mental Status: mental status grossly normal Speech and movement: Normal speech and movement present Affect: normal affect Attitude: cooperative Thought process: Normal thought process present Thought content: Normal thought content present Insight: Good insight present (Psych) Judgement: Good judgement present (Psych) Assessment & Plan Assessment & Plan (1) Chronic restrictive lung disease: Code(s): J98.4 - Other disorders of lung Category: Medical (2) JEWEL on CPAP: Comment: No longer using CPAP Code(s): G47.33 - Obstructive sleep apnea (adult) (pediatric); Z99.89 - Dependence on other enabling machines and devices Category: Medical (3) Bronchitis, asthmatic: Code(s): J45.909 - Unspecified asthma, uncomplicated Category: Medical Qualifiers: Asthma complication type: uncomplicated Asthma persistence: intermittent Asthma severity: mild Qualified Code(s): J45.20 - Mild intermittent asthma, uncomplicated (4) Dyspnea: Code(s): R06.00 - Dyspnea, unspecified Category: Medical Qualifiers: Dyspnea type: dyspnea on exertion Qualified Code(s): R06.00 - Dyspnea, unspecified Plan continue Trelegy, consider anival Continue short-acting beta agonists holding CPAP therapy, clinically better. consider repeat her PSG bloodwork follow-up in 12 month Orders: Orders Complete Blood Count Auto Diff Today R06.00 - Dyspnea, unspecified Ferritin Today R06.00 - Dyspnea, unspecified Erythrocyte Sedimentation Rate Today R06.00 - Dyspnea, unspecified Immunoglobulin E Today R06.00 - Dyspnea, unspecified IRON PROFILE Today R06.00 - Dyspnea, unspecified Basic Metabolic Panel Today R06.00 - Dyspnea, unspecified Coding Level of Care Code Est Pt Level 4 (76050) Diagnoses Chronic restrictive lung disease J98.4 JEWEL on CPAP G47.33; Z99.89 Mild intermittent asthmatic bronchitis without complication J45.20 Asthma complication type: uncomplicated Asthma persistence: intermittent Asthma severity: mild Dyspnea on exertion R06.00 Dyspnea type: dyspnea on exertion Time Spent (min) 17
[2025-06-12 14:38] VITALS: BP 114/70; PULSE 82; O2SAT 100; BMI 25.6
--- OUTSIDE RECORDS SUMMARY | 2025-06-12 17:34 | XMS_ITS | Clinical Summary ---
Author Organization [employer] [facility] Address [address] [place] [address] Care Team Providers Care Pest Control Worker Name Role Phone Angelique Soni Primary Care Provider [phone] Allergies Active Allergy Reactions Criticality Noted Date [...] age to complete this topic Care Teams Pest Control Worker Relationship Specialty Start Date End Date Angelique Soni [address] [place] [address] PCP - General Family Medicine 03/25/23
== END 2025-06-12 15:06 | disposition home or self-care (01) ==
PROVIDERS: PCP Internal Medicine; Visit Provider Hospitalist
DX: J98.4 Other disorders of lung (principal); G47.33 Obstructive sleep apnea (adult) (pediatric); Z99.89 Dependence on other enabling machines and devices; J45.20 Mild intermittent asthma, uncomplicated; R06.00 Dyspnea, unspecified
CPT/HCPCS: 99214

== ENCOUNTER 2025-06-12 14:31 | Outpatient (REF) | payer OTHER, SELFPAY ==
[2025-06-12 15:20] LABS: MANUAL DIFF FLAG NO
[2025-06-12 15:29] LABS: Hematocrit 39.4 % (37.0-47.0); Hemoglobin 13.0 g/dl (12.0-16.0); Imm Gran Abs Auto 0.03 X10*3/uL (0.00-0.03); Imm Gran Pct Auto 0.4 % (0.0-0.4); Lymphocytes Absolute Auto 2.3 X10*3/uL (1.2-4.9); Mean Corpuscular HGB Conc 33.0 g/dl (31.0-35.0); Mean Corpuscular Hemoglobin 28.6 pg (27.0-33.0); Mean Corpuscular Volume 86.8 fL (80.0-98.0); NRBC Abs Auto 0.000 X10*3/uL (0.0-0.012); NRBC Pct Auto 0.0 /100WBC (0.0-0.2); Platelet Count 386 X10*3/uL (160-400); Red Blood Count 4.54 X10*6/uL (4.20-5.50); White Blood Count 7.3 X10*3/uL (4.8-10.8)
[2025-06-12 16:02] LABS: Alanine Aminotransferase 13 U/L (0-31); Albumin Level 4.5 g/dL (3.5-5.0); Alkaline Phosphatase 110 U/L (39-117); Anion Gap 10 (12-20); Aspartate Amino Transferase 19 U/L (5-31); Blood Urea Nitrogen 11 mg/dL (9-16); Calcium 8.6 mg/dL (8.4-10.2); Carbon Dioxide 25 mmol/L (22-29); Chloride 108 mmol/L (96-108); Estimated Glomerular Filt Rate > 60; Iron 90 mcg/dL (30-160); Percent Iron Saturation 28 % (15-50); Potassium 4.1 mmol/L (3.3-5.1); Sodium 139 mmol/L (135-145); Total Iron Binding Capacity 323 mcg/dL (228-428); Total Protein 7.7 g/dL (6.5-8.0); Unsaturated Iron Binding 233 ug/dL
[2025-06-12 16:12] LABS: Ferritin 47 ng/mL (10-250)
[2025-06-12 16:28] LABS: Folate 5.0 ng/mL (> or = 4.0); Vitamin B12 579 pg/mL (200-900)
--- OUTSIDE RECORDS SUMMARY | 2025-06-12 18:04 | XMS_ITS | Clinical Summary ---
Author Organization [address] [facility] Address [address] [place] [address] Phone Care Team Providers Care Political Researcher Name Role Phone Juarez Monteiro Primary Care Provider [phone] Allergies Active Allergy Reactions Criticality Noted Date [...] PM EDT Office Visit Orthopedic Surgery - [address] [place] [address] Jacquelyn Oates MD Cubital tunnel syndrome of both upper extremities (Primary Dx) 05/09/2025 Telephone Gastroenterology - [address] [place] [address] Christina Rodriguez MD from Last [...] HISTORICAL COLONOSCOPY OTHER SURGICAL HISTORY 04/25/2019 PROCEDURE: MT EGD PARTIAL/COMPL ESOPHAGOGASTRIC FUNDOPLASTY SECTION PROCEDURE: HISTORICAL [...] Value Date Recorded Sex Assigned at Female 05/30/2025 8:18 AM EDT Legal Sex Female 12:40 PM EST Gender Identity Female 05/30/2025 8:18 AM EDT Sexual Orientation Straight 05/30/2025 8: 18 AM EDT Obstetrics History Last Filed Vital Signs Vital [...] Screening: Pap Smear 1997 HIV Screening 07/18/2022 Medicare Annual Wellness Visit 07/18/2022 Social Influencers of Health Screening 07/18/2022 [...] 04/04/2018 Hepatitis B Vaccines Completed 11/19/2022, 06/24/20 MMR Vaccines Aged Out 12/04/2022 No longer [...] patient's age to complete this topic Insurance [employer] MED[employer] Member Subscriber Plan / Payer (Ef fective 2019-Present) Name:DAYANA WATTS Relation to Subscriber:Self Name:Dayana Munoz Payer ID:[id number] Group ID:[id number] Type:Not on file Address: [address] [address] Care Teams Political Researcher Relationship Specialty Start Date End Date Juarez Monteiro PA [address] [place] [address] PCP - General 05/09/25
--- OUTSIDE RECORDS SUMMARY | 2025-06-12 18:04 | XMS_ITS | Clinical Summary ---
Author Organization [facility] Address [address] [place] [address] Care Team Providers Care Farm Machine Tender Name Role Phone Juarez Monteiro PA-C Primary [...] elsewhere 11/19/2022 Overview (11/19/2022): Seeing Rheumatology at [facility] [place], currently on hydroxychloroquine 200mg BID [...] Overview (07/19/2015): Currently stable, off meds. - [facility]- psychiatry and counselor. -taking medicine CTS [...] moderate to severe asthma Healthcare worker or nurse first assist? No COVID-19 Tested? - No Is patient ? No Elevated LFTs 01/24/2019 11/19/2022 Overview (01/24/2019): Managed by GI-last follow-up october 2018-?likely fatty liver disease, recommend weight loss Chronic gastritis without bleeding 12/28/2015 11/19/2022 History of thrombocytosis 12/28/2015 Acute right otitis media 11/28/2015 Gastritis 11/28/2015 11/19/2022 Cholecystitis, acute 11/20/2015 023 Overview (12/06/2015): Pt is admitted into [facility] for acute cholecystitis S/p lap cholecystectomy [...] (04/07/2015): 10/24/13- was normal on patient at [facility]. 03/27/15- normal. Encounters Date Type Department Care Team Description 05/01/2025 3:00 PM EDT Office Visit [facility] [address] [place] [address] Monteiro, Rosimar, PA-C from Last 3 Months Immunizations Immunization Administration Dates Next Due Flu, Preservative Free 06/13/2022,2020,06/02/2019,06/15 Flu, Recombinant, 18y+, Flublok 05/15/2023 Hep B,adult,adjuvanted (HEPLISAV) 11/19/2022, INFLUENZA, SEASONAL, INJECTA BLE, PRESERVATIVE FREE 07/29/2016,06/20/2015,06/20/2015 MMR (MMR II/Priorix) 12/04/2022 Moderna COVID-19 Vaccine, re d cap blue label, 12+ Primary Series 12/16/2020,11/16/2020 PNEUMOCOCCAL CONJUGATE PCV 13 11/19/2022 PNEUMOCOCCAL POLYSACCHARIDE PPV23 (Pneumovax 23) 06/02/2019 Pfizer-BioNTSquareMarket COVID-19 Vac cine Bivalent, (MORGAN PFIZER-BIONTECH COVID-19 [...] 01/20/2024, 0 01/20/2024, 03/11/2023, Additional history exists [id number] ( season) 2025 08/22/2022, 06/24/2022, 10/08/2021, Additional [...] Date/Time Associated Diagnosis Comments REFERRAL SCANNED DOCUMENT 05/29/2025 3:00 AM EDT REFERRAL SCANNED DOCUMENT 05/03/2025 3:00 AM EDT [...] Health Maintenance Results * REFERRAL SCANNED DOCUMENT (05/29/2025 3:00 AM EDT) Only the most recent of2 resultswithin the time period is included. 05/29/2025 3:00 AM EDT Juarez Monteiro PA-C SCAN REFERRAL Final Result * HIV 1/2 AG & AB W/RFLX (4TH GEN) (01/20/2024 8:59 AM EDT) HIV AG/AB, 4TH GEN NON-REAC TIVE NON-REAC TIVE [employer] [facility] Comment: HIV-1 antigen and HIV-1/HIV-2 antibodies [...] purpose. For additional information please refer to http://education.iCAD.WalletKit/faq/VQF720 (This link is being provided for informational/ educational purposes only.) The performance of this assay has not been clinically validated in patients less than 2 years old. Blood Blood / Unknown 01/20/2024 8 :59 AM EDT 01/20/2024 8:59 AM EDT Narrative [employer] [facility] - 01/21/2024 5:29 AM EDT FASTING:YES us Juarez Monteiro PA-C LAB - BLOOD DRAW Final Resul t [employer] [address] [address], [employer] [facility] [address] [place] [address] * (ABNORMAL) LIPID PANEL (01/20/2024 8:59 AM EDT) CHOLESTEROL, TOTAL 199 <200 mg/dL [employer] [facility] HDL CHOLESTEROL 46(L) > OR = 50 mg/dL [employer] [facility] TRIGLYCERIDES 127 <150 mg/dL [employer] [facility] LDL-CHOLESTEROL 129(H) 99 mg/dL (calc) [employer] [facility] Comment: Reference range: <100 Desirable range <100 mg/dL for primary prevention; <70 mg/dL for patients with CHD or diabetic patients with > or = 2 CHD risk factors. LDL-C is now calculated using the Dorian-Ceron calculation, which is a validated novel method providing better accuracy than the Friedewald equation in the estimation of LDL-C. Dorian TONEY et al. CIRILO. 2013;310(19): 7725-5532 (http://education.WinningAdvantage/faq/MPF119) CHOL/HDLC RATIO 4.3 <5.0 (calc) [employer] [facility] NON-HDL CHOLESTEROL 153(H) <130 mg/dL (calc) [employer] Comment: For patients with diabetes plus 1 major ASCVD risk factor, treating to a non-HDL-C goal of <100 mg/dL (LDL-C of <70 mg/dL) is considered a therapeutic option. Blood Blood / Unknown 01/20/2024 8 :59 AM EDT 01/20/2024 8:59 AM EDT Narrative [employer] [facility] - 01/21/2024 5:29 AM EDT FASTING:YES us Juarez Monteiro PA-C LAB - BLOOD DRAW Final Resul t Performing Organization Address [facility]/ZIP Co de Phone Number [employer] [facility] [address] [address], [employer] [facility] [address] [place] [address] * COMPREHENSIVE METABOLIC PANEL (01/20/2024 8:59 AM EDT) GLUCOSE 83 65 - 99 mg/dL [employer] [facility] Comment: Fasting reference interval UREA NITROGEN (BUN) 8 7 - 25 mg/dL [employer] [facility] CREATININE (blood) 0.66 0.50 - 0.99 mg/dL [employer] [facility] EGFR 109 > OR = 60 mL/min/1. 73m2 [employer] [facility] BUN/CREATININE RATIO SEE NOTE: [employer] [facility] Comment: Not Reported: BUN and Creatinine are within reference range. SODIUM 138 135 - 146 mmol/L [employer] [facility] POTASSIUM 4.2 3.5 - 5.3 mmol/L [employer] [facility] CHLORIDE 103 98 - 110 mmol/L [employer] [facility] CARBON DIOXIDE 29 20 - 32 mmol/L [employer] [facility] CALCIUM 8.9 8.6 - 10.2 mg/dL [employer] [facility] PROTEIN, TOTAL 6.9 6.1 - 8.1 g/dL [employer] [facility] ALBUMIN 4.1 3.6 - 5.1 g/dL [employer] [facility] GLOBULIN 2.8 1.9 - 3.7 g/dL (calc) [employer] [facility] ALBUMIN/GLOBULI N RATIO 1.5 1.0 - 2.5 (calc) [employer] [facility] BILIRUBIN, TOTAL 0.7 0.2 - 1.2 mg/dL [employer] [facility] ALKALINE PHOSPHATASE 107 31 - 125 U/L [employer] [facility] AST 14 10 - 35 U/L [employer] [facility] ALT 10 6 - 29 U/L [employer] [facility] Blood Blood / Unknown 01/20/2024 8 :59 AM EDT 01/20/2024 8:59 AM EDT Narrative [employer] [facility] - 01/21/2024 5:29 AM EDT FASTING:YES Juarez Monteiro PA-C LAB - BLOOD DRAW Edited Resu lt - Final [facility] [address] [address], [facility] [address] [place] [address] * HISTORIC MAMMOGRAM (11/25/2020 12:00 AM EDT) Anatomical Region Laterality Modality Other 11/25/2020 Juarez Monteiro PA-C IMG MAMMO Final Result * HEPATITIS A,B,C PANEL (01/26/2019 11:18 AM EDT) HEPATITIS B SURFACE ANTIBODY NEGATIVE NEGATIVE [facility] HEPATITIS B SURFACE ANTIGEN NEGATIVE NEGATIVE [facility] Comment: Over the counter supplements containing high doses of biotin may interfere with this assay. If interference is suspected, patients shoud be retested after refraining from biotin supplements for 72 hours. HEPATITIS C VIRUS DIAGNOSTIC NEGATIVE NEGATIVE [facility] HEPATITIS B CORE ANTIBODY NEGATIVE NEGATIVE [facility] HEPATITIS A ANTIBODY TOTAL NEGATIVE NEGATIVE [facility] Comment: Over the counter supplements containing high doses of biotin may interfere with this assay. If interference is suspected, patients shoud be retested after refraining from biotin supplements for 72 hours. Blood specimen (specimen) Blood / Unknown 01/26/2019 11:18 AM EDT 01/26/2019 1:40 PM EDT Narrative [facility] [employer] [facility] - 01/26/2019 7:14 PM EDT [employer], [place] [address] [employer] - Helga Ortiz MD PT ID [id number] ORD# [id number] Siddhartha Long NP LAB - BLOOD DRAW Edited Result - Final [employer] [address], from Last 3 Months or Most Recently Relevant to Health Maintenance Insurance [facility] [address] [id number] Care Teams Farm Machine Tender Relationship Specialty Start Date End Date Juarez Monteiro PA-C [address] [place] [address] PCP - General FAMILY MEDICINETEJAS 11/12/20
== END 2025-06-12 14:32 | disposition home or self-care (01) ==
LOC: HO.LAB 14:31
PROVIDERS: Nurse Practitioner Family; PCP Internal Medicine; Visit Provider Hospitalist
DX: J45.20 Mild intermittent asthma, uncomplicated (principal); G47.33 Obstructive sleep apnea (adult) (pediatric); J98.4 Other disorders of lung; D64.9 Anemia, unspecified; M35.9 Systemic involvement of connective tissue, unspecified; Z79.51 Long term (current) use of inhaled steroids; Z79.899 Other long term (current) drug therapy; Z99.89 Dependence on other enabling machines and devices
CPT/HCPCS: 36415; 80048; 80053; 82607; 82728; 82746; 82785; 83540; 85025; 85652; 86140; 99212